=== PATIENT | male | born 1940 | race Caucasian/White ===

== ENCOUNTER 2017-02-21 10:34 | Inpatient (IN) | payer MEDICARE ==
[2017-02-21 13:23] VITALS: BMI 31.0
[2017-02-21] MEDS ORDERED: ASPIRIN 325 MG TAB PO STA (15:14)
[2017-02-21] MEDS ORDERED: ALPRAZolam 0.25 MG TAB PO PRN (15:14)
[2017-02-21] MEDS ORDERED: ATORVASTATIN 80 MG TAB PO STA (15:14)
[2017-02-21] MEDS ORDERED: ALPRAZolam 0.5 MG TAB PO PRN (15:14)
[2017-02-21] MEDS ORDERED: SODIUM CHLORIDE 0.9% 1,000 ML in EMPTY BAG 1 BAG IV ONE (15:14)
[2017-02-21] MEDS ORDERED: NITROGLYCERIN SL TABS 0.4 MG TAB SUBLINGUAL PRN (15:14)
[2017-02-21 15:42] LABS: Basophils # (A) 0.1 k/uL (0-0.2); Basophils % (A) 1 %; CH 31.1; CHCM 33.7; Eosinophils # (A) 0.5 k/uL (0-0.7); Eosinophils % (A) 8 %; HCT 47.4 % (39.0-53.0); HDW 2.68; HGB 16.2 gm/dL (13.0-17.5); Luc # (Auto) 0.09; Luc % (Auto) 1; Lymphocytes # (A) 1.3 k/uL (1.0-4.8); Lymphocytes % (A) 20 %; MCH 31.6 pg (25.0-35.0); MCHC 34.1 g/dL (31.0-37.0); MCV 92.6 fL (80.0-100.0); Mean Platelet Volume 7.5; Monocytes # (A) 0.4 k/uL (0-1.0); Monocytes % (A) 6 %; Neutrophils # (A) 4.1 k/uL (1.3-7.7); Neutrophils % (A) 63 %; RBC 5.12 m/uL (4.30-5.90); RDW 13.4 % (11.5-15.5); WBC 6.5 k/uL (3.8-10.6); WBC (Perox) 6.65
[2017-02-21 15:46] LABS: INR 1.1 (<1.2); Prothrombin Time 11.3 sec (9.0-12.0)
[2017-02-21 15:52] LABS: Anion Gap 8 mmol/L; Blood Urea Nitrogen 15 mg/dL (9-20); Calcium 9.2 mg/dL (8.4-10.2); Carbon Dioxide 25 mmol/L (22-30); Chloride 104 mmol/L (98-107); Glucose 112 mg/dL (74-99); Non-African American GFR(MDRD) >60 (>60 ml/min/1.73 sqM); Potassium 4.2 mmol/L (3.5-5.1); Sodium 137 mmol/L (137-145)
[2017-02-21] MEDS: ISOSORBIDE MONONITRATE ER 15 MG TAB PO SCH (17:55)
[2017-02-21] MEDS: CARVEDILOL 12.5 MG TAB PO SCH (17:55)
[2017-02-21] MEDS ORDERED: TEMAZEPAM 7.5 MG CAP PO PRN (18:31)
[2017-02-21] MEDS: HEPARIN SODIUM,PORCINE 5,000 UNIT/ML 1 ML VIAL SQ SCH (21:04)
[2017-02-22] MEDS: ISOSORBIDE MONONITRATE ER 15 MG TAB PO SCH (06:37)
[2017-02-22] MEDS: CARVEDILOL 12.5 MG TAB PO SCH (06:37)
[2017-02-22] MEDS: CLOPIDOGREL 75 MG TAB PO SCH (06:38)
[2017-02-22] MEDS: PANTOPRAZOLE 40 MG TABLET PO SCH (06:38)
[2017-02-22] MEDS ORDERED: ATORVASTATIN 80 MG TAB PO STA (07:25)
[2017-02-22] MEDS ORDERED: ASPIRIN 325 MG TAB PO STA (07:25)
[2017-02-22] MEDS: ASPIRIN 81 MG PO SCH (07:32)
[2017-02-22] MEDS ORDERED: IV FLUID CONTINUATION 1,000 ML IV ONE (10:31)
[2017-02-22] MEDS: HEPARIN SODIUM,PORCINE 5,000 UNIT/ML 1 ML VIAL SQ SCH ×2 (10:35→20:41)
[2017-02-22] MEDS ORDERED: fentaNYL (PF) 50 MCG/ML 2 ML AMP IV ONE (11:10)
[2017-02-22] MEDS ORDERED: MIDAZOLAM 2 MG/2 ML VIAL IV ONE (11:10)
[2017-02-22] MEDS ORDERED: LIDOCAINE 2% INJ 20 MG/ML SQ ONE (11:13)
[2017-02-22] MEDS ORDERED: IOHEXOL 350 MG/ML 125ML BOTTLE INJ ONE (11:24)
[2017-02-22] MEDS ORDERED: RX INFO: IV CONTRAST WAS GIVEN 1 EACH MISC MISCELLANE PRN (11:36)
[2017-02-22] MEDS ORDERED: SODIUM CHLORIDE 0.9% 1,000 ML IV SCH (11:45)
--- NOTE | 2017-02-22 11:51 | P.PCN ---
Date of Procedure: 02/22/17 Preoperative Diagnosis: Unstable angina, dizziness Postoperative Diagnosis: Normal coronary arteries. Mild cardiomyopathy Procedure(s) Performed: Left heart catheterization with left ventriculography Description of Procedure: HISTORY: This is a 76-year-old gentleman with history of mild coronary artery disease and possibly history of aortic regurgitation who was admitted to [facility] with complaints of dizziness, visual disturbances and also recurrent left arm pain associated with sweating. Patient's cardiac enzymes were negative. Computed tomography scan showed evidence of small lacunar infarct. Because of ongoing chest pain and known ischemic heart disease, patient is advised to have a cardiac catheterization to rule out any progression of ischemic heart disease. Patient is also waiting to have neurology evaluation. Carotid duplex study did not reveal any significant obstructive disease. CONSENT:I have discussed the risks, benefits and alternative therapies for the above-mentioned procedure and for both sedation/analgesia as well as necessary blood product administration, if indicated, as they pertain to this patient. The patient has indicated understanding and acceptance of the risks and procedures discussed. PROCEDURE: Patient was brought to the lab in a fasting state. Patient was given some IV sedation. The right groin is infiltrated with lidocaine and right femoral artery was entered using Seldinger technique. A 6-Guyanese catheter was left in place and selective coronary arteriography and left ventriculography was performed. Patient tolerated the procedure well. Femoral angiogram was performed and Angio-Seal was applied for hemostasis. No immediate complications were noted and patient was transferred to [facility] in a stable condition Conscious Sedation: Versed 0.5 mg Fentanyl : 25 micrograms Duration 20 minutes HEMODYNAMICS: . The aortic pressure is about 88/50 and left ankle end- diastolic pressure is 5-8. There was no gradient across the aortic valve SELECTIVE CORONARY ARTERIOGRAPHY: LEFT MAIN: Long and patent THE LEFT ANTERIOR DESCENDING CORONARY ARTERY: Moderate caliber vessel free of any occlusive disease THE LEFT CIRCUMFLEX AND IS CORONARY ARTERY: . Moderate caliber vessel giving rise to good-sized OM branch. Free of occlusive disease THE RIGHT CORONARY ARTERY: Dominant vessel giving rise good-sized PDA and PLV. Free of any occlusive disease LEFT VENTRICULOGRAPHY: . Mildly dilated left ventricle with mildly impaired LV function with an ejection fraction about 40 to 45% FINAL IMPRESSION: Normal coronary arteries. Mildly impaired LV function PLAN: Maximum medical therapy. Further evaluation for echocardiogram with contrast. May consider LAURIE examination. If necessary. If the workup is negative, long-term monitoring to rule out any intermittent atrial fibrillation to be considered PROGNOSIS: . Fair
[2017-02-22] MEDS ORDERED: ACETAMINOPHEN TAB 325 MG TAB PO PRN (15:04)
--- NOTE | 2017-02-22 15:27 | ECHOF ---
Referral Reason:chest pain MEASUREMENTS -------- HEIGHT: 157.5 cm WEIGHT: 100.7 kg BP: 102/61 IVSd: 1.3 cm (0.6 - 1.1) LVIDd: 5.2 cm (3.9 - 5.3) LVPWd: 1.0 cm (0.6 - 1.1) IVSs: 1.6 cm LVIDs: 4.6 cm LVPWs: 1.3 cm Ao Diam: 3.5 cm (2.0 - 3.7) AV Cusp: 1.9 cm (1.5 - 2.6) LA Diam: 3.4 cm (2.7 - 3.8) MV EXCURSION: 13.644 mm (> 18.000) MV EF SLOPE: 45 mm/s (70 - 150) EPSS: 1.5 cm MV E Miguleito: 0.35 m/s MV DecT: 367 ms MV A Miguelito: 0.56 m/s MV E/A Ratio: 0.61 AR PHT: 690 ms RAP: 5.00 mmHg RVSP: 20.99 mmHg FINDINGS -------- Sinus rhythm. This was a technically adequate study. There is mild concentric left ventricular hypertrophy. Overall left ventricular systolic function is mild-moderately impaired with, an EF between 40 - 45 %. Inferior Hypokinesis The right ventricle is normal in size. The left atrial size is normal. The right atrial size is normal. Lumason was given for the enhancement of images. The aortic valve was not well visualized. There is moderate aortic regurgitation. Mild mitral regurgitation is present. Mild tricuspid regurgitation present. There is no evidence of pulmonary hypertension. The right ventricular systolic pressure, as measured by Doppler, is 20.99mmHg. There is no pulmonic regurgitation present. The aortic root size is normal. There is no pericardial effusion. CONCLUSIONS -------- 1. There is mild concentric left ventricular hypertrophy. 2. The right ventricular systolic pressure, as measured by Doppler, is 20.99mmHg. 3. There is no pulmonic regurgitation present. 4. The aortic root size is normal. 5. There is no pericardial effusion. 6. Overall left ventricular systolic function is mild-moderately impaired with, an EF between 40 - 45 %. 7. Inferior Hypokinesis 8. Lumason was given for the enhancement of images. 9. The aortic valve was not well visualized. 10. There is moderate aortic regurgitation. 11. Mild mitral regurgitation is present. 12. Mild tricuspid regurgitation present. 13. There is no evidence of pulmonary hypertension. C[employer]AL [employer]PPLY MANAGER: Jordyn Arguelles RDCS
--- NOTE | 2017-02-22 19:46 | P.CNNES ---
History of Present Illness Consult date: 02/22/17 Reason for Consult: Patient being evaluated after cardiac cath for numbness. History of Present Illness: This patient is a 76-year-old right-handed white male who was admitted to [facility] on 02/19/2017 with symptoms of left arm tingling and numbness. Patient describes his symptoms at that time is being mostly a sense of achiness and numbness involving his left arm. He was admitted to the hospital and did undergo a computed tomography scan of the brain on 02/19/2017. This CAT scan revealed evidence of cerebral atrophy with no acute intracranial abnormality. A small lacunar infarct in the insula of the left temporal lobe was noted. This was felt to be an old area of infarction. Patient denies any previous history of stroke. Apparently he also had a near syncopal episode when he was admitted to [facility]. He has no previous history of stroke or seizures. He did complain of some chest discomfort and uncontrolled hypertension and was seen by cardiology at [facility]. He does follow with his regular family physician in [facility] practice with Dr. Mitchell Jessica. He does take one baby aspirin 81 mg daily for the past several years. He states that his last laboratory checkup with his family physician revealed normal cholesterol levels. The patient was transferred to [facility] today for a cardiac catheterization given his chest pain and atypical chest pain symptoms. He underwent a cardiac catheterization today by Dr. Joseph. Final impression on the cardiac catheterization was normal coronary arteries with mild impairment of left ventricular function. Neurology was consulted today for further evaluation. He is resting comfortably in bed and denies any new symptoms. His numbness in the left arm has completely resolved. He did undergo a carotid Doppler ultrasound which failed to reveal any significant carotid artery stenosis. Neurologically his exam today is nonfocal. We have recommended the patient should be maintained on his current dose of aspirin daily for secondary stroke prevention. We've recommended repeat serum cholesterol to be done in 6 months for him. He has had no further recurrence of left arm discomfort or achiness in the left arm at this time. He denies any neck pain or history of neck injury in the past. He is being considered for possible discharge home tomorrow. Neurology is now been consulted for further evaluation and recommendations. Review of Systems Constitutional: Denies chills, Denies fever Eyes: denies blurred vision, denies pain Ears, nose, mouth and throat: Denies headache, Denies sore throat Cardiovascular: Denies chest pain, Denies shortness of breath Respiratory: Denies cough Gastrointestinal: Denies abdominal pain, Denies diarrhea, Denies nausea, Denies vomiting Musculoskeletal: Denies myalgias Integumentary: Denies pruritus, Denies rash Neurological: Reports motor disturbance, Reports paresthesias, Reports sensory deficit, Reports syncope, Denies numbness, Denies weakness Psychiatric: Denies anxiety, Denies depression Endocrine: Denies fatigue, Denies weight change Past Medical History Past Medical History: Coronary Artery Disease (CAD), Cancer, Chest Pain / Angina , CVA/TIA, Syncope History of Any Multi-Drug Resistant Organisms: None Reported Past Surgical History: Heart Catheterization, Hernia Repair Past Anesthesia/Blood Transfusion Reactions: No Reported Reaction Past Psychological History: No Psychological Hx Reported Smoking Status: Former smoker Past Alcohol Use History: None Reported Past Drug Use History: None Reported - Past Family History Mother Family Medical History: Congestive Heart Failure (CHF) Father Family Medical History: Cancer Medications and Allergies Home Medications Medication Instructions Recorded Confirmed Type Aspirin 81 mg PO DAILY 02/21/17 02/21/17 History Carvedilol [Coreg] 25 mg PO BID 02/21/17 02/21/17 History Multivitamins, Thera [Multivitamin 1 tab PO DAILY 02/21/17 02/21/17 History (formulary)] Nitroglycerin Sl Tabs [Nitrostat] 0.4 mg SUBLINGUAL Q5M PRN 02/21/17 02/21/17 History Omeprazole [PriLOSEC] 20 mg PO DAILY 02/21/17 02/21/17 History Allergies Allergy/AdvReac Type Severity Reaction Status Date / Time No Known Allergies Allergy Verified 02/21/17 14:58 Physical Examination - Vital Signs Vital Signs: Vital Signs Temp Pulse Pulse Pulse Resp BP BP 02/22/17 13:30 62 18 93/55 02/22/17 13:00 61 16 93/62 02/22/17 12:30 97.1 F L 52 L 18 95/52 02/22/17 12:15 62 18 02/22/17 12:00 02/22/17 11:45 58 L 18 02/22/17 09:19 96.4 F L 68 18 104/60 02/22/17 08:00 96.4 F L 68 18 02/22/17 04:00 97.5 F L 65 18 02/21/17 23:40 97.2 F L 64 18 02/21/17 20:50 96.8 F L 68 16 02/21/17 15:46 89 16 BP BP Pulse Ox 02/22/17 13:30 97 02/22/17 13:00 91 L 02/22/17 12:30 95 02/22/17 12:15 89/56 93 L 02/22/17 12:00 84/53 02/22/17 11:45 85/55 92 L 02/22/17 09:19 93 L 02/22/17 08:00 104/60 93 L 02/22/17 04:00 102/61 91 L 02/21/17 23:40 94/50 92 L 02/21/17 20:50 99/68 92 L 02/21/17 15:46 132/65 93 L Intake and Output 02/21/17 02/22/17 02/22/17 22:59 06:59 14:59 Intake Total 237 400 Output Total 220 Balance 237 180 Intake: IV 400 Sodium Chloride 0.9% 1, 150 000 ml @ 150 mls/hr IV . Q6H40M [facility] Rx#:[id number] Oral 237 Output: Urine 220 Other: Voiding Method Toilet Toilet Urinal Urinal # Voids 1 1 Weight 101 kg 101 kg - Constitutional General appearance: cooperative, disheveled - EENT EENT: PERRL, mucous membranes moist - Respiratory Respiratory: lungs clear, normal breath sounds - Cardiovascular Cardiovascular: regular rate, normal S1, normal S2 Extremities: no peripheral edema bilaterally - Gastrointestinal Gastrointestinal: normoactive bowel sounds - Integumentary Integumentary: normal - Neurologic Cranial nerve examination: PERRL, EOMI, VFF, V1/V2/V3 grossly intact, face symmetric, tongue midline, intact gag reflex, intact corneal reflex, normal palatal elevation Speech examination: intact Sensorimotor examination: intact Detailed motor examination: grossly full strength in all extremities Motor examination - right side: 4/5: biceps, triceps, wrist flexion, wrist extension, sofa inspector, hip flexors, knee extensors, dorsiflexion, toe extension (EHL) , plantarflexion Motor examination - left side: 4/5: biceps, triceps, wrist flexion, wrist extension, sofa inspector, hip flexors, knee extensors, dorsiflexion, toe extension (EHL) , plantarflexion Detailed sensory examination: intact Reflex and gait examination: intact Reflexes: 1+: ankle, bicep, knee, tricep - Musculoskeletal Musculoskeletal: no pain - Psychiatric Psychiatric: mood/affect appropriate, cooperative Results - Laboratory Findings CBC and BMP: 02/21/17 15:33 02/21/17 15:33 Abnormal Lab Findings: Abnormal Labs 02/21/17 15:33 Glucose 112 H Assessment and Plan (1) TIA (transient ischemic attack) Status: Acute Code(s): G45.9 - TRANSIENT CEREBRAL ISCHEMIC ATTACK, UNSPECIFIED (2) Old lacunar stroke without late effect Status: Acute Code(s): Z86.73 - PRSNL HX OF TIA (TIA), AND CEREB INFRC W/O RESID DEFICITS (3) Unstable angina Status: Acute Code(s): I20.0 - UNSTABLE ANGINA Plan: This patient is a 76-year-old male who initially presented to [facility] with symptoms of near syncope and left arm pain and numbness. He was admitted to the hospital and underwent a computed tomography scan of the brain and carotid Doppler study both of which were negative. CAT scan of the brain didn't reveal evidence of a old small lacunar infarct in the insula of the left temporal lobe. Patient was transferred today to the [facility] for cardiac catheterization procedure. This procedure was completed today and was entirely normal. Patient's neurological examination at this time is nonfocal. We recommend that he should be maintained on one baby aspirin daily for secondary stroke prevention. No further studies are needed at this time. His clinical history suggests possibility of mild TIA. His left arm symptoms have completely resolved. We will continue to follow his neurological status closely during this admission. His overall prognosis at this time remains guarded. Time with Patient: Greater than 30
[2017-02-22 21:21] LABS: Anion Gap 7 mmol/L; Blood Urea Nitrogen 18 mg/dL (9-20); Calcium 8.7 mg/dL (8.4-10.2); Carbon Dioxide 23 mmol/L (22-30); Chloride 105 mmol/L (98-107); Glucose 141 mg/dL (74-99); Magnesium 1.5 mg/dL (1.6-2.3); Non-African American GFR(MDRD) >60 (>60 ml/min/1.73 sqM); Potassium 4.3 mmol/L (3.5-5.1); Sodium 135 mmol/L (137-145)
[2017-02-22] MEDS ORDERED: Magnesium Replacement Protocol 1 EACH MISC MISCELLANE PRN (22:05)
[2017-02-22] MEDS: MAGNESIUM SULFATE-D5W PMX 1 GM in DEXTROSE/WATER 1 100ML.BAG IVPB SCH (23:08)
[2017-02-23] MEDS: MAGNESIUM SULFATE-D5W PMX 1 GM in DEXTROSE/WATER 1 100ML.BAG IVPB SCH (00:21)
[2017-02-23] MEDS: PANTOPRAZOLE 40 MG TABLET PO SCH (06:41)
[2017-02-23] MEDS: HEPARIN SODIUM,PORCINE 5,000 UNIT/ML 1 ML VIAL SQ SCH (08:04)
[2017-02-23] MEDS: CLOPIDOGREL 75 MG TAB PO SCH (08:04)
[2017-02-23] MEDS: ASPIRIN 81 MG PO SCH (08:04)
[2017-02-23 08:07] VITALS: RESP 16; TEMP 96.7
[2017-02-23 11:56] VITALS: BP 116/59; PULSE 64
[2017-02-23] MEDS ORDERED: CARVEDILOL 3.125 MG TAB PO SCH (12:00)
--- NOTE | 2017-02-23 14:18 | P.PN ---
Subjective Principal diagnosis: Chest discomfort and dizziness This is a 76-year-old gentleman with history of mild coronary artery disease as well as aortic regurgitation with initially presented to [facility] with symptoms of dizziness and syncope, with associated left arm discomfort. Cardiac enzymes and troponins were negative 3. Patient was transferred here where he underwent a cardiac catheterization yesterday by Dr. Joseph. Cardiac catheterization revealed normal coronary arteries with mildly impaired left ventricular systolic function. Echocardiogram with Doppler study was performed which revealed an ejection fraction of 40-45%. Patient was also noted on a CAT scan [facility] to have a lacunar infarct. Patient was seen in consultation by neurology who felt that this was old. Patient was advised to continue on a baby aspirin along with Plavix. We did initiate a small dose of Coreg along with LEIGH inhibitor today. Objective - Vital Signs Vital signs: Vital Signs Temp 96.7 F L 02/23/17 08:00 Pulse 64 02/23/17 11:55 Resp 16 02/23/17 11:55 BP 116/59 02/23/17 11:55 Pulse Ox 93 L 02/23/17 11:55 Intake & Output 02/22/17 02/23/17 02/23/17 18:59 06:59 18:59 Intake Total 636 900 200 Output Total 220 950 Balance 416 -50 200 Weight 102.3 kg Intake: IV 400 900 Sodium Chloride 0.9% 1, 150 900 000 ml @ 150 mls/hr IV . Q6H40M [facility] Rx#:[id number] Oral 236 200 Output: Urine 220 950 Other: Voiding Method Toilet Toilet # Voids 1 2 2 - Exam PHYSICAL EXAMINATION: HEENT: Head is atraumatic, normocephalic. Pupils equal, round. Neck is supple. There is no elevated jugular venous pressure. HEART EXAMINATION: Heart S1-S2 diastolic murmur is heard. CHEST EXAMINATION: Lungs are clear to auscultation and precussion. No chest wall tenderness is noted on palpation or with deep breathing. ABDOMEN: Soft, nontender. Bowel sounds are heard. No organomegaly noted. Right groin soft, no evidence of any hematoma. EXTREMITIES: 2+ peripheral pulses with no evidence of peripheral edema and no calf tenderness noted. NEUROLOGIC patient is awake, alert and oriented -3. . - Labs CBC & Chem 7: 02/21/17 15:33 02/22/17 20:52 Labs: Abnormal Lab Results - Last 24 Hours (Table) 02/22/17 Range/Units 20:52 Sodium 135 L (137-145) mmol/L Glucose 141 H (74-99) mg/dL Magnesium 1.5 L (1.6-2.3) mg/dL Assessment and Plan (1) Chest pain Status: Acute (2) Dizziness Status: Acute (3) NICM (nonischemic cardiomyopathy) Status: Acute (4) S/P cardiac cath Status: Acute (5) Old lacunar stroke without late effect Status: Acute Plan: Cardiology's perspective, patient may be able to be discharged home today. We will start him on a low-dose of Coreg along with LEIGH inhibitor. A follow-up appointment will be made in the office post discharge. We will continue aspirin and Plavix. DNP note has been reviewed, I agree with a documented findings and plan of care. Patient was seen and examined.
--- NOTE | 2017-02-23 21:48 | P.PN ---
Subjective This patient is a 76-year-old male who was seen in neurology consultation yesterday for evaluation of dizziness and evidence of old lacunar infarct on CAT scan of the brain. Patient presented initially to [facility] with symptoms of dizziness and left arm numbness and weakness. He was seen by cardiology and transferred to [facility] and underwent a cardiac catheterization yesterday by Dr. Joseph. The results of the cardiac catheterization revealed normal coronary arteries and mild impaired left ventricular systolic function. Echocardiogram and Doppler study was performed and revealed an ejection fraction of 40-45%. We did review the CAT scan report from the outside hospital which revealed a small lacunar infarct. Was felt to be old in nature and definitely not acute. He was advised to continue on aspirin and Plavix for secondary stroke prevention. Neurologically he has remained very stable. He is being considered for discharge home later today. He may follow-up in the outpatient neurology clinic in 3-4 weeks. Objective - Vital Signs Vital signs: Vital Signs Temp 96.7 F L 02/23/17 08:00 Pulse 64 02/23/17 11:55 Resp 16 02/23/17 11:55 BP 116/59 02/23/17 11:55 Pulse Ox 93 L 02/23/17 11:55 Intake & Output 02/23/17 02/23/17 02/24/17 06:59 18:59 06:59 Intake Total 900 200 Output Total 950 Balance -50 200 Weight 102.3 kg Intake: IV 900 Sodium Chloride 0.9% 1, 900 000 ml @ 150 mls/hr IV . Q6H40M [facility] Rx#:[id number] Oral 200 Output: Urine 950 Other: Voiding Method Toilet Toilet # Voids 2 2 - Exam Physical examination: PHYSICAL EXAMINATION: Patient is resting comfortably in bed. VITAL SIGNS: Blood pressure is [116/59]. Heart rate is [64]. Respiration is [16] . Temperature is [96.7]. HEENT: Head is atraumatic, neck is supple, there were no carotid bruits. CHEST: Lungs are clear to auscultation and percussion. CARDIAC: S1, S2 normal rate and rhythm. There is no murmur. ABDOMEN: Soft and nontender. Bowel sounds are present. EXTREMITIES: There is no pedal edema. Peripheral pulses are present. Neurological examination: Patient has a nonfocal neurological examination. There is no focal weakness detected on examination. - Labs CBC & Chem 7: 02/21/17 15:33 02/22/17 20:52 Assessment and Plan (1) TIA (transient ischemic attack) Status: Acute Code(s): G45.9 - TRANSIENT CEREBRAL ISCHEMIC ATTACK, UNSPECIFIED (2) Old lacunar stroke without late effect Status: Acute Code(s): Z86.73 - PRSNL HX OF TIA (TIA), AND CEREB INFRC W/O RESID DEFICITS (3) Unstable angina Status: Acute Code(s): I20.0 - UNSTABLE ANGINA Plan: This patient is a 76-year-old male who initially presented to [facility] with symptoms of near syncope and left arm pain and numbness. He was admitted to the hospital and underwent a computed tomography scan of the brain and carotid Doppler study both of which were negative. CAT scan of the brain didn't reveal evidence of a old small lacunar infarct in the insula of the left temporal lobe. Patient was transferred today to the [facility] for cardiac catheterization procedure. This procedure was completed today and was entirely normal. Patient's neurological examination at this time is nonfocal. We recommend that he should be maintained on one baby aspirin daily for secondary stroke prevention. No further studies are needed at this time. His clinical history suggests possibility of mild TIA. His left arm symptoms have completely resolved. Patient underwent cardiac catheterization yesterday I Dr. Joseph. Cardiac catheterization reveals normal coronary arteries with mild impaired left ventricular systolic function. Neurologically the patient remains very stable. We reviewed his CAT scan of the brain results once again with the patient. He should be maintained on current medications which include Plavix and aspirin for secondary stroke prevention. He may follow -up in the outpatient neurology clinic in 3-4 weeks. We will continue to follow his neurological status closely during this admission. His overall prognosis at this time remains guarded.
[2017-02-24] MEDS ORDERED: LISINOPRIL 2.5 MG TAB PO SCH (09:00)
== END 2017-02-23 13:52 | disposition home or self-care (01) | DRG 287 ==
LOC: 6SEL 13:03
PROVIDERS: ADMIT Internal Medicine Cardiovascular Disease; ATTEND Internal Medicine Cardiovascular Disease
PROC: B2111ZZ Fluoroscopy of Multiple Coronary Arteries using Low Osmolar Contrast (ICD-10-PCS; 2017-02-22)
PROC: B2151ZZ Fluoroscopy of Left Heart using Low Osmolar Contrast (ICD-10-PCS; 2017-02-22)
PROC: 4A023N7 Measurement of Cardiac Sampling and Pressure, Left Heart, Percutaneous Approach (ICD-10-PCS; principal; 2017-02-22 10:31)
DX: I42.8 Other cardiomyopathies (principal); I35.1 Nonrheumatic aortic (valve) insufficiency; G45.9 Transient cerebral ischemic attack, unspecified; I10 Essential (primary) hypertension; Z79.82 Long term (current) use of aspirin; Z79.899 Other long term (current) drug therapy; Z82.49 Family history of ischemic heart disease and other diseases of the circulatory system; Z86.73 Personal history of transient ischemic attack (TIA), and cerebral infarction without residual deficits; Z87.891 Personal history of nicotine dependence; R55 Syncope and collapse
CPT/HCPCS: 80048; 83735; 85025; 85610; 93306; 93458

== ENCOUNTER → 2018-06-21 | Outpatient (CLI) | payer MEDICARE ==
--- NOTE | 2018-06-21 16:20 | XR ---
EXAMINATION TYPE: XR chest 2V DATE OF EXAM: 06/21/2018 COMPARISON: NONE HISTORY: Shortness of breath TECHNIQUE: Frontal and lateral views of the chest are obtained. FINDINGS: There is no focal air space opacity, pleural effusion, or pneumothorax seen. There is steph ateral flattening the diaphragms on the lateral view and pulmonary hyperinflation compatible with und erlying COPD. Minimal interstitial pulmonary edema is noted. Cardiomediastinal silhouette is upper li mits of normal. The osseous structures are intact. Mild multilevel degenerative changes of the thorac ic spine are noted. IMPRESSION: 1. Minimal interstitial edema may be on a cardiogenic or noncardiogenic basis. 2. Radiographic sequela of COPD.
[2018-06-21 16:37] LABS: Basophils # (A) 0.1 k/uL (0-0.2); Basophils % (A) 1 %; Eosinophils # (A) 0.6 k/uL (0-0.7); Eosinophils % (A) 8 %; HCT 49.8 % (39.0-53.0); HGB 16.2 gm/dL (13.0-17.5); Lymphocytes # (A) 1.7 k/uL (1.0-4.8); Lymphocytes % (A) 20 %; MCH 30.1 pg (25.0-35.0); MCHC 32.6 g/dL (31.0-37.0); MCV 92.3 fL (80.0-100.0); Mean Platelet Volume 6.7; Monocytes # (A) 0.4 k/uL (0-1.0); Monocytes % (A) 5 %; Neutrophils # (A) 5.4 k/uL (1.3-7.7); Neutrophils % (A) 65 %; Platelet Count 171 k/uL (150-450); RDW 13.5 % (11.5-15.5); WBC 8.4 k/uL (3.8-10.6)
[2018-06-22 04:49] LABS: Albumin 4.1 g/dL (3.80-4.90); Albumin/Globulin Ratio 1.86 (1.20-2.10); Anion Gap 8.9 mmol/L (4.00-12.00); Carbon Dioxide 30.1 mmol/L (21.6-31.8); Globulin 2.2 g/dL (1.6-3.3); Potassium 4.2 mmol/L (3.5-5.5); Total Bilirubin 0.7 mg/dL (0.2-1.2); Total Protein 6.3 g/dL (6.2-8.2)
== END ==
LOC: LABWHC1 15:34
PROVIDERS: ATTEND Internal Medicine Cardiovascular Disease
DX: J44.9 Chronic obstructive pulmonary disease, unspecified (principal); R06.02 Shortness of breath
CPT/HCPCS: 36415; 71046; 80053; 83880; 85025

== ENCOUNTER → 2024-05-01 | Day surgery (SDC) | payer MEDICARE ==
[~2024-05-01] MED LIST: SODIUM CHLORIDE 0.9% 1,000 ML IV SCH; SODIUM CHLORIDE 0.9% 500 ML IV SCH
[2024-05-01] MEDS: IV FLUID CONTINUATION 1,000 ML IV ONE (12:37)
[2024-05-01 12:50] VITALS: TEMP 98
[2024-05-01] MEDS: SODIUM CHLORIDE 0.9% 1,000 ML IV SCH (12:57)
[2024-05-01] MEDS: LIDOCAINE 1% INJ 10MG/ML (20 ML MDV) SQ ONE (14:03)
--- NOTE | 2024-05-01 14:49 | P.PCN ---
Description of Procedure: Procedure: Insertion of Linq loop recorder Indication: Syncope CONSENT:I have discussed the risks, benefits and alternative therapies for the above-mentioned procedure. The patient has indicated understanding and acceptance of the risks and procedures discussed. PROCEDURE: Patient was brought to the catheterization lab in a fasting state. Patient was prepped and draped in the usual fashion. 1% lidocaine was used to anesthetize the area of the left third intercostal space. Using the loop recorder incision device, a small 0.5 cm incision was made in the left 3rd intercostal space. Next the Linq loop recorder was deployed in the 3rd intercostal space subcutaneously using the insertion tool. Thresholds were checked and were adequate. Next the incision was closed using Dermabond. Steristrips were placed over the incision and the procedure was completed. The patient tolerated the procedure well. The patient was transported to the post cath holding area in stable condition. Linq loop recorder serial number: [id number]
[2024-05-01] MEDS: ACETAMINOPHEN IV (For NPO) 1,000 MG in EMPTY BAG 1 BAG IVPB STA (15:00)
[2024-05-01 17:57] VITALS: BP 111/56; PULSE 58; RESP 18
== END ==
LOC: CATHEP 11:22
PROVIDERS: ATTEND Internal Medicine
DX: R55 Syncope and collapse (principal); I10 Essential (primary) hypertension; I35.1 Nonrheumatic aortic (valve) insufficiency; I42.0 Dilated cardiomyopathy; J44.9 Chronic obstructive pulmonary disease, unspecified; Z86.73 Personal history of transient ischemic attack (TIA), and cerebral infarction without residual deficits; Z87.891 Personal history of nicotine dependence; Z79.02 Long term (current) use of antithrombotics/antiplatelets; Z79.899 Other long term (current) drug therapy
CPT/HCPCS: 33285; J0690; J2003; J0131

== ENCOUNTER 2024-11-13 11:42 | Day surgery (SDC) | payer MEDICARE ==
[~2024-11-13 11:42] MED LIST changes: -SODIUM CHLORIDE 0.9% 1,000 ML IV SCH; -SODIUM CHLORIDE 0.9% 500 ML IV SCH; +ceFAZolin 1 GM in SODIUM CHLORIDE 0.9% IRRIG BTL 250 ML IRRIGATION PRN
[2024-11-13] MEDS: IV FLUID CONTINUATION 1,000 ML IV ONE (12:31)
[2024-11-13] MEDS: SODIUM CHLORIDE 0.9% 1,000 ML IV SCH ×2 (12:31→18:58)
[2024-11-13] MEDS: MIDAZOLAM 2 MG/2 ML VIAL IVP ONE ×3 (14:22→14:57)
[2024-11-13] MEDS: fentaNYL (PF) 50 MCG/1 ML VIAL IVP ONE ×3 (14:23→14:57)
[2024-11-13] MEDS: LIDOCAINE 2% (PF) 20 MG/ML 5 ML VIAL SQ ONE (14:27)
[2024-11-13] MEDS: IOPAMIDOL-370 100ML BTL IVP ONE (14:27)
[2024-11-13] MEDS: ceFAZolin 1,000 MG VIAL IVPB ONE (14:58)
[2024-11-13] MEDS: ceFAZolin 2 GM in SODIUM CHLORIDE 0.9% 500 ML 500 ML IRRIGATION ONE (14:59)
[2024-11-13] MEDS: HEPARIN SODIUM,PORCINE (1 ML) 2,500 UNIT in SODIUM CHLORIDE 0.9% 250 ML IRRIGATION ONE (14:59)
--- NOTE | 2024-11-13 15:49 | P.PCN ---
Description of Procedure: CARDIOLOGY PROCEDURE NOTE Stripper [place]paquer: Dr. Bari Henson Procedure performed: Insertion dual chamber permanent pacemaker Site: Left subclavian Indications: Sick Sinus Syndrome, symptomatic bradycardia with need for beta td for VT and cardiomyopathy Complications: None Blood Loss: Minimal Description of Procedure: After the risks, benefits, and alternatives of the above-mentioned procedure was explained in detail with the patient, informed consent was obtained. The patient was taken to the cardiac catheterization suite where the left subclavian area was sterily prepped and draped in the usual fashion. One percent lidocaine was used to anesthetize the left subclavian area. Twenty milliliters of Isoview 370 contrast was injected into the left antecubital vein to allow for direct visualization of the left subclavian vein under fluoroscopy. A 1.5 inch incision was made utilizing a #15 blade in the left subclavian site. Hemostasis was made complete. Electrocautery along with digital blunt dissection was utilized to dissect to the level of the pectoralis muscle fascia and create a pocket large enough to accommodate the generator. A thin walled micro puncuture needle was used to cannulate the left subclavian vein. A guide-wire was inserted through the needle into the vascular lumen under fluoroscopic guidance. The needle was removed. Another thin walled micr puncture needle was used to again cannulate the left subclavian vein. A guide-wire was inserted through the needle into the vascular lumen under fluoroscopic guidance. The needle was removed and both guide-wires were attached to the field. A venous sheath and dilator were advanced over the guidewire into the vascular lumen under fluoroscopic guidance. The dilator and guidewire were then removed. A right ventricular bipolar lead was inserted into the sheath and advanced under fluoroscopic guidance into the right ventricle under fluoroscopic guidance. Adequate sensing and pacing thresholds were achieved and the lead was screwed into place in the RV apex. The sheath was then torn away. The lead collar was advanced and anchored into place utilizing #0 silk suture. Next, another venous sheath and dilator were advanced under fluoroscopic guidance into the vascular lumen over the guidewire. After removal of the dilator and guidewire, a right atrial bipolar lead was inserted into this sheath and advanced under fluoroscopic guidance into the right atrium. The lead was positioned into the right atrial appendage. Adequate sensing and pacing thresholds were then achieved and the lead was screwed into place. The sheath was then torn away. The lead collar was advanced and anchored into place utilizing #0 silk suture. The leads were then inserted into the appropriate position into the generator. They were then secured with the setscrew provided. The leads and generator were inserted into the pocket with the leads posterior. The subcutaneous tissue was approximated utilizing #2.0 and 3.0 vicryl in an interrupted stitch fashion. The dermal layer was approximated utilizing #4.0 vicryl. The area was cleansed with sterile saline and dried. A sterile 4x4 dressing was applied and the patient was transferred to the post catheterization holding area in stable and satisfactory condition. The patient tolerated the procedure well. Generator Data Wire Splicer: Birchbox Brand: [id number] Shirley XT DR MRI Model #: [id number] Serial#: [id number] Right Atrial Bipolar Lead Data: Type: Active fixation lead Wire Splicer: Birchbox Model#: 5076-52 Serial Number: [id number] Right Ventricular Bipolar Lead Data: Type: Active fixation lead Wire Splicer: Medtronic Model #: [id number] Serial #: [id number] Stimulation Thresholds: Right atrial bipolar lead pacing and sensing thresholds Voltage: 0.5 Impedance: 665 ohms P-wave sensin.25 mV Right Ventricular bipolar lead pacing and sensing thresholds Pulse Width: 0.4ms Voltage: 0.5 volts Impedance: 779 ohms R-wave sensin.8 mV Parameter Setting: Pacing mode is AAIR<=>DDDR Lower rate 60 bpm Upper rate 130 bpm Impressions: 1. Successful implantation of a dual chamber permanent pacemaker in the left pectoral site. Plan: 1. Routine post procedure care will be instituted as well as outpatient follow- up surveillance.
[2024-11-13] MEDS ORDERED: ALBUTEROL NEBULIZED 2.5 MG/3 ML INHALATION PRN (15:50)
[2024-11-13 17:10] LABS: INR 1.1 (<1.2); Prothrombin Time 12.2 sec (10.0-12.5)
--- NOTE | 2024-11-13 18:21 | XR ---
EXAMINATION TYPE: XR chest 1V portable DATE OF EXAM: 11/13/2024 5:31 PM COMPARISON: None. CLINICAL INDICATION: Male, 84 years old with history of Lead placement check, TECHNIQUE: XR chest 1V portable view(s) obtained. FINDINGS: The heart size is mildly prominent. The pulmonary vasculature is prominent. Diffuse increased lung markings are present. Correlate for congestive heart failure. Electronic devic e overlies the left chest. Pacemaker overlies left chest. IMPRESSION: 1. Cardiomegaly with diffuse increased lung markings. Correlate for congestive heart failure [facility], , 11/13/2024 6:19 PM
[2024-11-13] MEDS: ceFAZolin 2 GM in DEXTROSE 5% IN WATER 50 ML IVPB SCH (18:27)
[2024-11-13] MEDS: ACETAMINOPHEN TAB 325 MG TAB PO PRN (18:27)
[2024-11-13] MEDS: SYMBICORT 160-4.5 MCG INHALER INHALATION SCH (19:48)
[2024-11-13] MEDS: TIOTROPIUM 2.5 MCG INHALER INHALATION SCH (19:48)
[2024-11-13] MEDS: ATORVASTATIN 20 MG TAB PO SCH (21:17)
[2024-11-13] MEDS: SERTRALINE 100 MG TAB PO SCH (21:17)
[2024-11-14 03:16] VITALS: RESP 18
[2024-11-14 08:47] VITALS: BP 125/61; PULSE 77; TEMP 97.7
[2024-11-14] MEDS: CLOPIDOGREL 75 MG TAB PO SCH (09:36)
[2024-11-14] MEDS: ASPIRIN 81 MG PO SCH (09:36)
--- NOTE | 2024-11-15 16:39 | P.DS ---
Providers Attending physician: Bari Henson DO Primary care physician: [facility] Hospital Course: Patient is a pleasant 84-year-old male with a history of mild cardiomyopathy, nonsustained ventricular tachycardia and symptomatic bradycardia who presented for elective permanent pacemaker. Patient had dual-chamber permanent pacemaker placed on 11/13/2024 from a left subclavian site. Patient did well and no events overnight except for brief runs of nonsustained ventricular tachycardia. Pacemaker interrogation 11/14/2024 showed adequate sensing and pacing parameters and patient was stable for discharge home. Plan - Discharge Summary Discharge Rx Participant: No New Discharge Prescriptions: No Action Nitroglycerin Sl Tabs [Nitrostat] 0.4 mg SUBLINGUAL Q5M PRN PRN Reason: Chest Pain Aspirin 81 mg PO DAILY Clopidogrel [Plavix] 75 mg PO DAILY #30 tab Sertraline [Zoloft] 100 mg PO HS rOPINIRole HCL [Requip] 0.5 mg PO HS Acetaminophen Tab [Tylenol Tab] 500 mg PO DIRECTED PRN PRN Reason: Pain Albuterol Inhaler [Ventolin Hfa Inhaler] 1 - 2 puff INHALATION Q6H PRN PRN Reason: sob Atorvastatin [Lipitor] 20 mg PO HS Fluticasone/Umeclidin/Vilanter [Trelegy Ellipta 200-62.5-25] 1 puff INHALATION BID Ibuprofen [Advil] 200 mg PO DIRECTED PRN PRN Reason: Pain Discharge Medication List Aspirin 81 mg PO DAILY 02/21/17 [History] Nitroglycerin Sl Tabs [Nitrostat] 0.4 mg SUBLINGUAL Q5M PRN 02/21/17 [History] Clopidogrel [Plavix] 75 mg PO DAILY #30 tab 02/23/17 [Rx] Atorvastatin [Lipitor] 20 mg PO HS 04/28/24 [History] Fluticasone/Umeclidin/Vilanter [Trelegy Ellipta 200-62.5-25] 1 puff INHALATION BID 04/28/24 [History] Sertraline [Zoloft] 100 mg PO HS 04/28/24 [History] rOPINIRole HCL [Requip] 0.5 mg PO HS 04/28/24 [History] Acetaminophen Tab [Tylenol Tab] 500 mg PO DIRECTED PRN 11/10/24 [History] Albuterol Inhaler [Ventolin Hfa Inhaler] 1 - 2 puff INHALATION Q6H PRN 11/10/24 [History] Ibuprofen [Advil] 200 mg PO DIRECTED PRN 11/10/24 [History] Follow up Appointment(s)/Referral(s): Bari Henson DO [STAFF PHYSICIAN] - 11/20/24 11:00 am (FOLLOW UP APPOINTMENT WITH THE [facility] IS MADE. ) Patient Instructions/Handouts: Pacemaker (DC), Pacemaker (GEN) Discharge Disposition: HOME SELF-CARE
== END 2024-11-14 12:32 | disposition home or self-care (01) ==
LOC: CATHEP 11:42 → 6NMEDSUR 15:53 → CATHEP 11-14 12:32
PROVIDERS: ATTEND Internal Medicine
DX: I49.5 Sick sinus syndrome (principal); I42.8 Other cardiomyopathies; I35.1 Nonrheumatic aortic (valve) insufficiency; I10 Essential (primary) hypertension; I47.20 Ventricular tachycardia, unspecified; J44.9 Chronic obstructive pulmonary disease, unspecified; Z79.02 Long term (current) use of antithrombotics/antiplatelets; Z79.82 Long term (current) use of aspirin; Z79.899 Other long term (current) drug therapy; Z87.891 Personal history of nicotine dependence
CPT/HCPCS: 94640 ×3; 33208; 85610; 71045; C1892; C1898; C1769; C1785; J2250; J1644; J0690 ×2; Q9967; J2003; J3010

== ENCOUNTER 2024-11-26 00:50 | Inpatient (IN) | payer MEDICARE ==
--- NOTE | 2024-11-26 00:55 | ED ---
SOB HPI - General Stated Complaint: SOB Time Seen by Provider: 11/26/24 00:53 Source: RN notes reviewed, old records reviewed Mode of arrival: EMS Limitations: no limitations - History of Present Illness Initial Comments: This is a 84-year-old male to the ER for evaluation of shortness of breath and chest pain is symptoms occurred prior to arrival. Patient just had recent inpa tient hospitalization but without fever today. Patient in transport to the ER began to have severe back pain left lower extremity pain and some pain in the left leg. Patient has recent pacemaker placement. Patient is having pain with a deep breath and shortness of breath improving on arrival to the ER MD Complaint: shortness of breath, cough -: hour(s) Radiation: back Severity: severe Severity scale (1-10): 9 Quality: dull Consistency: constant Improves With: nothing Worsens With: nothing Known History Of: COPD Context: recent URI Associated Symptoms: denies other symptoms Treatments Prior to Arrival: none - Related Data Home Medications Medication Instructions Recorded Confirmed Aspirin 81 mg PO DAILY 02/21/17 11/26/24 Nitroglycerin Sl Tabs [Nitrostat] 0.4 mg SUBLINGUAL Q5M PRN 02/21/17 11/26/24 Atorvastatin [Lipitor] 20 mg PO HS 04/28/24 11/26/24 Fluticasone/Umeclidin/Vilanter 1 puff INHALATION RT-DAILY 04/28/24 11/26/24 [Trelegy Ellipta 200-62.5-25] Sertraline [Zoloft] 50 mg PO HS 04/28/24 11/26/24 rOPINIRole HCL [Requip] 1 mg PO HS 04/28/24 11/26/24 Acetaminophen Tab [Tylenol Tab] 500 mg PO Q6H PRN 11/10/24 11/26/24 Albuterol Inhaler [Ventolin Hfa 2 puff INHALATION RT-Q4H PRN 11/10/24 11/26/24 Inhaler] Ibuprofen [Advil] 200 mg PO Q6H PRN 11/10/24 11/26/24 Previous Rx's Medication Instructions Recorded Clopidogrel [Plavix] 75 mg PO DAILY #30 tab 02/23/17 Allergies Allergy/AdvReac Type Severity Reaction Status Date / Time tape AdvReac blisters Uncoded 11/10/24 11:20 Review of Systems ROS Statement: Those systems with pertinent positive or pertinent negative responses have been documented in the HPI. ROS Other: All systems not noted in ROS Statement are negative. Past Medical History Past Medical History: Coronary Artery Disease (CAD), Cancer, Chest Pain / Angina, COPD, CVA/TIA, Hyperlipidemia, Osteoarthritis (OA), Sleep Apnea/CPAP/BIPAP, Syncope Additional Past Medical History / Comment(s): bladder cancer no chemo or radiation. TIA- old per testing- no residuals. recent URI infection getting better used 02 concentrator a little more. watching aorta per . BP runs low. cannot tolerate CPAP. 02 concentrator at night 2liters and as needed. History of Any Multi-Drug Resistant Organisms: None Reported Past Surgical History: Heart Catheterization, Hernia Repair Additional Past Surgical History / Comment(s): abdominal wall hernia. loop recorder, steph inguinal hernia. Past Anesthesia/Blood Transfusion Reactions: No Reported Reaction Additional Past Anesthesia/Blood Transfusion Reaction / Comment(s): BP drops Smoking Status: Former smoker, Heavy tobacco smoker - Past Family History Mother Family Medical History: Congestive Heart Failure (CHF) Father Family Medical History: Cancer General Exam General appearance: alert, in no apparent distress Head exam: Present: atraumatic, normocephalic, normal inspection Eye exam: Present: normal appearance, PERRL, EOMI. Absent: scleral icterus, conjunctival injection, periorbital swelling ENT exam: Present: normal exam, mucous membranes moist Neck exam: Present: normal inspection. Absent: tenderness, meningismus, lymphadenopathy Respiratory exam: Present: normal lung sounds bilaterally. Absent: respiratory distress, wheezes, rales, rhonchi, stridor Cardiovascular Exam: Present: regular rate, normal rhythm, normal heart sounds. Absent: systolic murmur, diastolic murmur, rubs, gallop, clicks GI/Abdominal exam: Present: soft, normal bowel sounds. Absent: distended, tenderness, guarding, rebound, rigid Extremities exam: Present: normal inspection, full ROM, normal capillary refill. Absent: tenderness, pedal edema, joint swelling, calf tenderness Back exam: Present: normal inspection Neurological exam: Present: alert, oriented X3, CN II-XII intact Psychiatric exam: Present: normal affect, normal mood Skin exam: Present: warm, dry, intact, normal color. Absent: rash Course Vital Signs 11/26/24 11/26/24 11/26/24 00:52 01:07 01:10 Temperature 98.6 F Pulse Rate 84 75 Pulse Rate [ 73 Left Sitting Radial] Respiratory 18 Rate Blood Pressure 101/67 O2 Sat by Pulse 94 L Oximetry 11/26/24 11/26/24 11/26/24 01:20 04:23 04:47 Temperature Pulse Rate 78 70 78 Pulse Rate [ Left Sitting Radial] Respiratory 16 Rate Blood Pressure 98/64 O2 Sat by Pulse 96 Oximetry 11/26/24 11/26/24 11/26/24 05:01 07:29 07:53 Temperature Pulse Rate 80 80 75 Pulse Rate [ Left Sitting Radial] Respiratory 18 18 Rate Blood Pressure 103/59 109/66 O2 Sat by Pulse 97 98 Oximetry 11/26/24 11/26/24 11/26/24 08:00 08:21 08:30 Temperature Pulse Rate 81 80 84 Pulse Rate [ Left Sitting Radial] Respiratory 18 Rate Blood Pressure 98/58 O2 Sat by Pulse 97 Oximetry 11/26/24 11/26/24 11/26/24 09:00 10:00 11:44 Temperature Pulse Rate 93 93 84 Pulse Rate [ Left Sitting Radial] Respiratory 18 18 Rate Blood Pressure 100/63 105/60 O2 Sat by Pulse 97 98 Oximetry 11/26/24 11/26/24 11/26/24 11:45 11:53 13:00 Temperature Pulse Rate 90 84 87 Pulse Rate [ Left Sitting Radial] Respiratory 18 22 Rate Blood Pressure 101/62 105/58 O2 Sat by Pulse 96 94 L Oximetry 11/26/24 11/26/24 11/26/24 14:00 14:59 15:00 Temperature Pulse Rate 89 88 87 Pulse Rate [ Left Sitting Radial] Respiratory 22 22 Rate Blood Pressure 99/63 68/39 O2 Sat by Pulse 94 L 93 L Oximetry 11/26/24 11/26/24 11/26/24 15:10 16:00 17:00 Temperature Pulse Rate 90 91 79 Pulse Rate [ Left Sitting Radial] Respiratory 24 20 Rate Blood Pressure 100/53 94/61 O2 Sat by Pulse 93 L 94 L Oximetry 11/26/24 11/26/24 11/26/24 18:00 19:31 20:00 Temperature 99.0 F Pulse Rate 87 80 Pulse Rate [ Left Sitting Radial] Respiratory 22 20 18 Rate Blood Pressure 104/48 92/56 O2 Sat by Pulse 93 L 95 Oximetry 11/26/24 11/26/24 20:11 20:23 Temperature Pulse Rate 79 76 Pulse Rate [ Left Sitting Radial] Respiratory Rate Blood Pressure O2 Sat by Pulse Oximetry - Reevaluation(s) Reevaluation #1: 11/26/24 02:43 Medical records reviewed Reevaluation #2: 11/26/24 02:54 Patient informed of results and questions answered Reevaluation #3: 11/26/24 02:55 No improvement in symptoms here in the ER Reevaluation #4: Was pt. sent in by a medical professional or institution (, [facility], BALLER TENDER, urgent c are, hospital, or senior care...) When possible be specific @ -no Did you speak to anyone other than the patient for history (EMS, parent, family, police, friend...)? What history was obtained from this source @ -no Did you review nursing and triage notes (agree or disagree)? Why? @ -agree Are old charts reviewed (outside hosp., previous admission, EMS record, old EKG, old radiological studies, urgent care reports/EKG's, senior care records)? Report findings @ -yes Differential Diagnosis (chest pain, altered mental status, abdominal pain women, abdominal pain men, vaginal bleeding, weakness, fever, dyspnea, syncope, headache, dizziness, GI bleed, back pain, seizure, CVA, palpatations, mental health, musculoskeletal)? @ -prior EKG interpreted by me (3pts min.). @ -yes X-rays interpreted by me (1pt min.). @ -yes positive for pneumonia CT interpreted by me (1pt min.). @ -no U/S interpreted by me (1pt. min.). @ -no What testing was considered but not performed or refused? (CT, X-rays, U/S, labs)? Why? @ -none What meds were considered but not given or refused? Why? @ -none Did you discuss the management of the patient with other professionals (professionals i.e. [facility] Martinez, BALLER TENDER, lab, RT, psych nurse, director social, commanding officer garage, teacher, bsa/aml compliance officer, caseworker protective services)? Give summary @ -no Was smoking cessation discussed for >3mins.? @ -no Was critical care preformed (if so, how long)? @ -no Were there social determinants of health that impacted care today? How? (Homelessness, low income, unemployed, alcoholism, drug addiction, transportation, low edu. Level, literacy, decrease access to med. care, halfway, rehab)? @ -none Was there de-escalation of care discussed even if they declined (Discuss DNR or withdrawal of care, Hospice)? DNR status @ -no What co-morbidities impacted this encounter? (DM, HTN, Smoking, COPD, CAD, Cancer, CVA, ARF, Chemo, Hep., AIDS, mental health diagnosis, sleep apnea, morbid obesity)? @ -none Was patient admitted / discharged? Hospital course, mention meds given and route, prescriptions, significant lab abnormalities, going to OR and other pertinent info. @ - 84 female to the ER for evaluation patient has persistent chest pain, sh ortness of breath, chest x-ray is positive for pneumonia and chest pain is persistent here in the ER Admitted Undiagnosed new problem with uncertain prognosis? @ -no Drug Therapy requiring intensive monitoring for toxicity (Heparin, Nitro, Insulin, Cardizem)? @ -no Were any procedures done? @ -no Diagnosis/symptom? @ -Chest pain with pneumonia Acute, or Chronic, or Acute on Chronic? @ -Acute Uncomplicated (without systemic symptoms) or Complicated (systemic symptoms)? @ -Complicated Side effects of treatment? @ -no Exacerbation, Progression, or Severe Exacerbation? @ -exacerbation Poses a threat to life or bodily function? How? (Chest pain, USA, PR, pneumonia, PE, COPD, DKA, ARF, appy, cholecystitis, CVA, Diverticulitis, Homicidal, Suicidal, threat to staff... and all critical care pts) @ -yes extremes of age Reevaluation #5: Differential Dyspnea: Coronary syndrome, arrhythmia, tamponade, asthma, COPD, pulmonary embolism, pneumonia, pneumothorax, pulmonary effusion, anaphylaxis, diabetic ketoacidosis, flailed chest, pulmonary contusion, diaphragmatic rupture, anemia, neuromuscular, this is not meant to be an all-inclusive list. - Consultations Consultation #1: Spoke with sound who agreed to admit this patient Medical Decision Making - Medical Decision Making 84 female to the ER for evaluation patient has persistent chest pain, shortness of breath, chest x-ray is positive for pneumonia and chest pain is persistent here in the ER - Lab Data Result diagrams: 12/01/24 07:49 12/02/24 07:53 Lab Results 11/26/24 11/26/24 11/26/24 Range/Units 01:01 01:01 01:01 WBC 14.08 H (4.50-10.00) 10*3/uL RBC 4.17 L (4.40-5.60) 10*6/uL Hgb 12.6 L (13.0-17.0) g/dL Hct 38.1 L (39.6-50.0) % MCV 91.4 (80.0-97.0) fL MCH 30.2 (27.0-32.0) pg MCHC 33.1 (32.0-37.0) g/dL Plt Count 298 (140-440) 10*3/uL MPV 9.1 L (9.5-12.2) fL Immature Gran % (Auto) 0.8 % Neutrophils % 67.3 % Lymphocytes % 12.1 % Monocytes % 7.2 % Eosinophils % 12.0 % Basophils % 0.6 % Immature Gran # 0.11 H (0.00-0.04) 10*3/uL Neutrophils # 9.46 H (1.80-7.70) 10*3/uL Lymphocytes # 1.71 (0.90-5.00) 10*3/uL Monocytes # 1.02 H (0.20-1.00) 10*3/uL Eosinophils # 1.69 H (0.04-0.35) 10*3/uL Basophils # 0.09 (0.00-0.10) 10*3/uL ESR (0-20) mm/Hr PT 11.7 (10.0-12.5) sec INR 1.1 (<1.2) APTT 26.5 (22.0-30.0) sec Sodium 135 L (137-145) mmol/L Potassium 4.4 (3.5-5.1) mmol/L Chloride 101 (98-107) mmol/L Carbon Dioxide 25 (22-30) mmol/L Anion Gap 9 mmol/L BUN 16 (9-20) mg/dL Creatinine 1.00 (0.66-1.25) mg/dL Est GFR (CKD-EPI)AfAm 80 (>60 ml/min/1.73 sqM) Est GFR (CKD-EPI)NonAf 69 (>60 ml/min/1.73 sqM) Glucose 122 H (74-99) mg/dL Estimated Ave Glu mg/dL mg/dL Hemoglobin A1c (<=6.0) % Plasma Lactic Acid Yung (0.7-2.0) mmol/L Calcium 9.2 (8.4-10.2) mg/dL Magnesium 1.9 (1.6-2.3) mg/dL Total Bilirubin 0.6 (0.2-1.3) mg/dL AST 25 (17-59) U/L ALT 15 (4-49) U/L Alkaline Phosphatase 73 (38-126) U/L Troponin I (0.000-0.034) ng/mL C-Reactive Protein (<1.0) mg/dL NT-Pro-B Natriuret Pep 380 pg/mL Total Protein 6.3 (6.3-8.2) g/dL Albumin 3.5 (3.5-5.0) g/dL Triglycerides (0.00-149.00) mg/dL Cholesterol (0.00-200.00) mg/dL LDL Cholesterol, Calc (0.0-131.0) mg/dL VLDL Cholesterol, Calc (5.00-40.00) mg/dL HDL Cholesterol (40.00-60.00) mg/dL Cholesterol/HDL Ratio Ratio TSH (0.350-5.500) UIU/ML 11/26/24 11/26/24 11/26/24 Range/Units 01:01 01:01 01:01 WBC (4.50-10.00) 10*3/uL RBC (4.40-5.60) 10*6/uL Hgb (13.0-17.0) g/dL Hct (39.6-50.0) % MCV (80.0-97.0) fL MCH (27.0-32.0) pg MCHC (32.0-37.0) g/dL Plt Count (140-440) 10*3/uL MPV (9.5-12.2) fL Immature Gran % (Auto) % Neutrophils % % Lymphocytes % % Monocytes % % Eosinophils % % Basophils % % Immature Gran # (0.00-0.04) 10*3/uL Neutrophils # (1.80-7.70) 10*3/uL Lymphocytes # (0.90-5.00) 10*3/uL Monocytes # (0.20-1.00) 10*3/uL Eosinophils # (0.04-0.35) 10*3/uL Basophils # (0.00-0.10) 10*3/uL ESR (0-20) mm/Hr PT (10.0-12.5) sec INR (<1.2) APTT (22.0-30.0) sec Sodium (137-145) mmol/L Potassium (3.5-5.1) mmol/L Chloride (98-107) mmol/L Carbon Dioxide (22-30) mmol/L Anion Gap mmol/L BUN (9-20) mg/dL Creatinine (0.66-1.25) mg/dL Est GFR (CKD-EPI)AfAm (>60 ml/min/1.73 sqM) Est GFR (CKD-EPI)NonAf (>60 ml/min/1.73 sqM) Glucose (74-99) mg/dL Estimated Ave Glu mg/dL 123 mg/dL Hemoglobin A1c 5.9 (<=6.0) % Plasma Lactic Acid Yung 1.3 (0.7-2.0) mmol/L Calcium (8.4-10.2) mg/dL Magnesium (1.6-2.3) mg/dL Total Bilirubin (0.2-1.3) mg/dL AST (17-59) U/L ALT (4-49) U/L Alkaline Phosphatase (38-126) U/L Troponin I <0.012 (0.000-0.034) ng/mL C-Reactive Protein (<1.0) mg/dL NT-Pro-B Natriuret Pep pg/mL Total Protein (6.3-8.2) g/dL Albumin (3.5-5.0) g/dL Triglycerides (0.00-149.00) mg/dL Cholesterol (0.00-200.00) mg/dL LDL Cholesterol, Calc (0.0-131.0) mg/dL VLDL Cholesterol, Calc (5.00-40.00) mg/dL HDL Cholesterol (40.00-60.00) mg/dL Cholesterol/HDL Ratio Ratio TSH (0.350-5.500) UIU/ML 11/26/24 11/26/24 11/26/24 Range/Units 01:01 01:01 01:01 WBC (4.50-10.00) 10*3/uL RBC (4.40-5.60) 10*6/uL Hgb (13.0-17.0) g/dL Hct (39.6-50.0) % MCV (80.0-97.0) fL MCH (27.0-32.0) pg MCHC (32.0-37.0) g/dL Plt Count (140-440) 10*3/uL MPV (9.5-12.2) fL Immature Gran % (Auto) % Neutrophils % % Lymphocytes % % Monocytes % % Eosinophils % % Basophils % % Immature Gran # (0.00-0.04) 10*3/uL Neutrophils # (1.80-7.70) 10*3/uL Lymphocytes # (0.90-5.00) 10*3/uL Monocytes # (0.20-1.00) 10*3/uL Eosinophils # (0.04-0.35) 10*3/uL Basophils # (0.00-0.10) 10*3/uL ESR 7 (0-20) mm/Hr PT (10.0-12.5) sec INR (<1.2) APTT (22.0-30.0) sec Sodium (137-145) mmol/L Potassium (3.5-5.1) mmol/L Chloride (98-107) mmol/L Carbon Dioxide (22-30) mmol/L Anion Gap mmol/L BUN (9-20) mg/dL Creatinine (0.66-1.25) mg/dL Est GFR (CKD-EPI)AfAm (>60 ml/min/1.73 sqM) Est GFR (CKD-EPI)NonAf (>60 ml/min/1.73 sqM) Glucose (74-99) mg/dL Estimated Ave Glu mg/dL mg/dL Hemoglobin A1c (<=6.0) % Plasma Lactic Acid Yung (0.7-2.0) mmol/L Calcium (8.4-10.2) mg/dL Magnesium 1.8 (1.6-2.3) mg/dL Total Bilirubin (0.2-1.3) mg/dL AST (17-59) U/L ALT (4-49) U/L Alkaline Phosphatase (38-126) U/L Troponin I (0.000-0.034) ng/mL C-Reactive Protein 1.5 H (<1.0) mg/dL NT-Pro-B Natriuret Pep pg/mL Total Protein (6.3-8.2) g/dL Albumin (3.5-5.0) g/dL Triglycerides 115.00 (0.00-149.00) mg/dL Cholesterol 111.00 (0.00-200.00) mg/dL LDL Cholesterol, Calc 43.2 (0.0-131.0) mg/dL VLDL Cholesterol, Calc 23.00 (5.00-40.00) mg/dL HDL Cholesterol 44.80 (40.00-60.00) mg/dL Cholesterol/HDL Ratio 2.48 Ratio TSH 4.250 (0.350-5.500) UIU/ML - EKG Data -: EKG Interpreted by Me (EKG is sinus 85 CO 178 QRS 128 QTc 454) - Radiology Data Radiology results: report reviewed (CXR is positive for pneumonia), image reviewed Disposition Clinical Impression: Chest wall syndrome, Chest pain, Unstable angina, Dizziness, NICM (nonischemic cardiomyopathy), S/P cardiac cath, Atypical chest pain Disposition: ADMITTED IP TO THIS HOSP Condition: Fair Is patient prescribed a controlled substance at d/c from ED?: No Time of Disposition: 03:30
[2024-11-26] MEDS: IPRATROPIUM-ALBUTEROL 3 ML NEB INHALATION STA ×2 (01:15→04:46)
[2024-11-26 01:16] LABS: Basophils # (A) 0.09 10*3/uL (0.00-0.10); Basophils % (A) 0.6 %; Eosinophils # (A) 1.69 10*3/uL (0.04-0.35); HCT 38.1 % (39.6-50.0); HGB 12.6 g/dL (13.0-17.0); Lymphocytes # (A) 1.71 10*3/uL (0.90-5.00); Lymphocytes % (A) 12.1 %; MCH 30.2 pg (27.0-32.0); MCHC 33.1 g/dL (32.0-37.0); MCV 91.4 fL (80.0-97.0); Mean Platelet Volume 9.1 fL (9.5-12.2); Monocytes # (A) 1.02 10*3/uL (0.20-1.00); Monocytes % (A) 7.2 %; Neutrophils # (A) 9.46 10*3/uL (1.80-7.70); Neutrophils % (A) 67.3 %; Platelet Count 298 10*3/uL (140-440); RBC 4.17 10*6/uL (4.40-5.60); RDW 13.9 % (11.5-14.5); WBC 14.08 10*3/uL (4.50-10.00)
[2024-11-26 01:29] LABS: ALT 15 U/L (4-49); AST 25 U/L (17-59); African American GFR (CKD) 80 (>60 ml/min/1.73 sqM); Albumin 3.5 g/dL (3.5-5.0); Alkaline Phosphatase 73 U/L (38-126); Anion Gap 9 mmol/L; Blood Urea Nitrogen 16 mg/dL (9-20); Calcium 9.2 mg/dL (8.4-10.2); Carbon Dioxide 25 mmol/L (22-30); Chloride 101 mmol/L (98-107); Glucose 122 mg/dL (74-99); Magnesium 1.9 mg/dL (1.6-2.3); Non-African American GFR(CKD) 69 (>60 ml/min/1.73 sqM); Potassium 4.4 mmol/L (3.5-5.1); Sodium 135 mmol/L (137-145); Total Bilirubin 0.6 mg/dL (0.2-1.3); Total Protein 6.3 g/dL (6.3-8.2)
[2024-11-26 01:37] LABS: NT-Pro-B-Type Natriuretic Pept 380 pg/mL
[2024-11-26 01:39] LABS: INR 1.1 (<1.2); Partial Thromboplastin Time 26.5 sec (22.0-30.0); Prothrombin Time 11.7 sec (10.0-12.5)
[2024-11-26] MEDS: KETOROLAC 15 MG/ML 1 ML VIAL IVP STA (01:52)
[2024-11-26] MEDS: LORazepam 1 MG/0.5 ML VIAL IV STA (01:56)
--- NOTE | 2024-11-26 03:09 | XR ---
EXAM: XR Chest, 2 Views CLINICAL HISTORY: difficulty breathing TECHNIQUE: Frontal and lateral views of the chest. COMPARISON: Chest two views dated 06/21/2018 FINDINGS: Lungs: Subsegmental opacities noted at the lung bases. The pulmonary vasculature appears somewhat equalized. Pleural space: Asymmetric elevation of the left hemidiaphragm. No large pleural effusion or pneumothorax. Heart: Unremarkable. No cardiomegaly. Mediastinum: The mediastinal contours are unremarkable. The trachea is midline. Bones/joints: Unremarkable. No acute fracture. Tubes, lines and devices: The cardiac silhouette is more prominent in size when compared to the previous examination with interval placement of a left dual lead pacer. Implanted loop recorder overlies the left hemithorax. IMPRESSION: Bibasilar subsegmental changes, [id number], are presumed asymmetric edema. Coexisting infection is difficult to exclude in this region. No large pleural effusion or pneumothorax.
[2024-11-26] MEDS ORDERED: PNEUMONIA PROTOCOL UTILIZED 1 EACH MISC PO PRN (03:34)
[2024-11-26] MEDS: SODIUM CHLORIDE 0.9% 1,000 ML IV SCH (04:19)
[2024-11-26] MEDS: AZITHROMYCIN 500 MG in SODIUM CHLORIDE 0.9% 250 ML IVPB STA (04:25)
[2024-11-26] MEDS: ALBUTEROL NEBULIZED 2.5 MG/3 ML INHALATION PRN (04:47)
[2024-11-26] MEDS: ATORVASTATIN 20 MG TAB PO SCH (05:26)
[2024-11-26] MEDS: ASPIRIN 81 MG PO SCH (05:26)
--- NOTE | 2024-11-26 06:13 | P.HPIM ---
History of Present Illness H&P Date: 11/26/24 Chief Complaint: Shortness of breath Patient is a 84 year old male with CAD, COPD, AR, former heavy smoker presented to the ED with shortness of breath and chest pain. Patient reports his shortness of breath started yesterday night when he was resting. He states having mids ternal chest pain with deep breaths, no radiation of pain. Associated with that he experienced cough for two weeks, with dark blackish sputum production initially, but it is clear now. He denies fever, chills, trauma. Denies any travel history. He uses oxygen intermittently at home, usually at night, at 2L. He mentions having a heart catheterization in the past but denies any stents placed. Denies history of CHF. He reports getting short of breath when walking to and from the restroom at home, but states that its at baseline. He uses a walker at home to ambulate. He quit smoking 13 years ago. Patient recently 11/13/24 underwent insertion of dual-chamber permanent pacemaker for sick sinus syndrome, symptomatic bradycardia with need for beta-td for VT and cardiomyopathy. Denies fever, chills, palpitations, abdominal pain, nausea, vomiting, hematuria, dysuria, hematochezia, melena, headache, slurred speech, numbness, tingling, dizziness, lightheadedness, blurred vision, double vision. ED documentation reviewed. In the ED patient was treated with DuoNeb, ketorolac, lorazepam, Rocephin, 0.9 normal saline, Zithromax. Vitals on admission T 98.6 F, MO 84 bpm, RR 18, BP 101/67, SpO2 94% on 2 L oxygen via nasal cannula EKG independently interpreted as sinus rhythm, occasional PVCs, pression, rate 85 bpm, QTc 454 ms, QRS 128 ms Chest x-ray shows bibasilar subsegmental changes, left greater than right are presumed asymmetric edema, coexisting infection is difficult to exclude in this region, no large pleural effusion or pneumothorax Labs on admission show WBC 14.08, hemoglobin 12.6, platelet 298, INR 1.1, sodium 135, potassium 4.4, creatinine 1, glucose 122, magnesium 1.9, NT proBNP 380, troponin I <0.012 Review of systems: Pertinent positives and negatives as discussed in HPI, a complete review of systems was performed and all other systems are negative. Physical examination: Vital signs reviewed General: nontoxic, no distress, appears at stated age Derm: warm, dry, intact Head: atraumatic, normocephalic, symmetric Eyes: EOMI, anicteric sclera Mouth: no lip lesion, mucus membranes moist Cardiovascular: S1 S2 reg, no murmur Lungs: CTA bilateral, no rhonchi, no rales, no accessory muscle use Abdominal: soft, non-tender to palpation Extremities: No cyanosis, clubbing, or pedal edema. Neuro: Alert, Oriented, Gross neurological examination did not reveal any focal deficits. Psych: well appearing, appropriate affect Assessment/Plan: Patient is a 84 year old male with CAD, COPD, AR presented to the ED with shortness of breath and chest pain. Patient admitted to internal medicine service. Active: #. Community acquired pneumonia #. Leukocytosis, likely secondary to above #. Chronic hypoxic respiratory failure #. COPD (on home oxygen 2L PRN) Chest x-ray shows bibasilar subsegmental changes, left greater than right are presumed asymmetric edema, coexisting infection is difficult to exclude in this region, no large pleural effusion or pneumothorax Received 1 dose of azithromycin and Rocephin in the ED Continue azithromycin 500 mg IVPB for total of 3 days, Rocephin 2 g IVPB every 24 hours for total of 5 days Continue nebulized albuterol, DuoNeb Continue supplemental oxygen as needed Obtain blood culture, sputum culture, Legionella antigen #. Atypical chest pain #. CAD S/p cardiac catheterization troponin I <0.012 EKG independently interpreted as sinus rhythm, occasional PVCs, poor R wave progression, rate 85 bpm, QTc 454 ms, QRS 128 ms Continue home meds Aspirin, statin, Plavix Resume home cardiac meds once verified by the pharmacy Continue to trend troponin Continue telemetry monitoring Cardiology consulted #. Normocytic anemia Obtain iron studies, LDH, retic count, vit B12, folate Monitor CBC Transfuse for Hb<7 #. Mild hyponatremia Monitor BMP IVF hydration with normal saline 75 cc per hour Chronic: #. Sick sinus syndrome S/p dual chamber permanent pacemaker implantation 11/13/24 #. AR not on CPAP, cannot tolerate #. History of TIA #. Anxiety/depression #. Restless leg syndrome Resume home meds once verified by the pharmacy F: None E: Replete as required N: Heart healthy diet A: Bedrest DVT prophylaxis: Lovenox 40 mg SQ daily The patient is admitted with an anticipated more than 2 midnight stay for ev aluation of chest pain and shortness of breath CODE STATUS: FULL CODE Discussed with: Patient Anticipated discharge place: Pending clinical course Dictation was produced using [employer] dictation software. please excuse any grammatical, word or spelling errors. Dominic Bright MD PGY-1 IM I have seen and evaluated the patient today. I Discussed the case with the resident and agree with the resident's findings I edited the assessment and plan as necessary as documented in the resident's note. Past Medical History Past Medical History: Coronary Artery Disease (CAD), Cancer, Chest Pain / Angina, COPD, CVA/TIA, Hyperlipidemia, Osteoarthritis (OA), Sleep Apnea/CPAP/BIPAP, Syncope Additional Past Medical History / Comment(s): bladder cancer no chemo or radiation. TIA- old per testing- no residuals. recent URI infection getting better used 02 concentrator a little more. watching aorta per . BP runs low. cannot tolerate CPAP. 02 concentrator at night 2liters and as needed. History of Any Multi-Drug Resistant Organisms: None Reported Past Surgical History: Heart Catheterization, Hernia Repair Additional Past Surgical History / Comment(s): abdominal wall hernia. loop recorder, steph inguinal hernia. Past Anesthesia/Blood Transfusion Reactions: No Reported Reaction Additional Past Anesthesia/Blood Transfusion Reaction / Comment(s): BP drops Smoking Status: Former smoker, Heavy tobacco smoker - Past Family History Mother Family Medical History: Congestive Heart Failure (CHF) Father Family Medical History: Cancer Medications and Allergies Home Medications Medication Instructions Recorded Confirmed Type Aspirin 81 mg PO DAILY 02/21/17 11/13/24 History Nitroglycerin Sl Tabs [Nitrostat] 0.4 mg SUBLINGUAL Q5M PRN 02/21/17 11/10/24 History Clopidogrel [Plavix] 75 mg PO DAILY #30 tab 02/23/17 11/13/24 Rx Atorvastatin [Lipitor] 20 mg PO HS 04/28/24 11/13/24 History Fluticasone/Umeclidin/Vilanter 1 puff INHALATION BID 04/28/24 11/13/24 History [Trelegy Ellipta 200-62.5-25] Sertraline [Zoloft] 100 mg PO HS 04/28/24 11/13/24 History rOPINIRole HCL [Requip] 0.5 mg PO HS 04/28/24 11/13/24 History Acetaminophen Tab [Tylenol Tab] 500 mg PO DIRECTED PRN 11/10/24 11/10/24 History Albuterol Inhaler [Ventolin Hfa 1 - 2 puff INHALATION Q6H PRN 11/10/24 11/10/24 History Inhaler] Ibuprofen [Advil] 200 mg PO DIRECTED PRN 11/10/24 11/10/24 History Allergies Allergy/AdvReac Type Severity Reaction Status Date / Time tape AdvReac blisters Uncoded 11/10/24 11:20 Physical Exam Vitals: Vital Signs Temp Pulse Pulse Resp BP Pulse Ox 11/26/24 01:20 78 11/26/24 01:10 75 11/26/24 01:07 73 11/26/24 00:52 98.6 F 84 18 101/67 94 L Intake and Output 11/25/24 11/25/24 11/26/24 14:59 22:59 06:59 Other: Weight 102.058 kg Results CBC & Chem 7: 11/26/24 01:01 11/26/24 01:01 Labs: Abnormal Lab Results - Last 24 Hours (Table) 11/26/24 11/26/24 Range/Units 01:01 01:01 WBC 14.08 H (4.50-10.00) 10*3/uL RBC 4.17 L (4.40-5.60) 10*6/uL Hgb 12.6 L (13.0-17.0) g/dL Hct 38.1 L (39.6-50.0) % MPV 9.1 L (9.5-12.2) fL Immature Gran # 0.11 H (0.00-0.04) 10*3/uL Neutrophils # 9.46 H (1.80-7.70) 10*3/uL Monocytes # 1.02 H (0.20-1.00) 10*3/uL Eosinophils # 1.69 H (0.04-0.35) 10*3/uL Sodium 135 L (137-145) mmol/L Glucose 122 H (74-99) mg/dL
[2024-11-26 08:11] LABS: HCT 36.1 % (39.6-50.0); HGB 11.4 g/dL (13.0-17.0); MCH 29.7 pg (27.0-32.0); MCHC 31.6 g/dL (32.0-37.0); Mean Platelet Volume 9.4 fL (9.5-12.2); Platelet Count 253 10*3/uL (140-440); RBC 3.84 10*6/uL (4.40-5.60); RDW 14.2 % (11.5-14.5); WBC 12.17 10*3/uL (4.50-10.00)
[2024-11-26 08:33] LABS: African American GFR (CKD) 68 (>60 ml/min/1.73 sqM); Anion Gap 9 mmol/L; Blood Urea Nitrogen 18 mg/dL (9-20); Calcium 8.8 mg/dL (8.4-10.2); Carbon Dioxide 26 mmol/L (22-30); Chloride 102 mmol/L (98-107); Glucose 140 mg/dL (74-99); Non-African American GFR(CKD) 59 (>60 ml/min/1.73 sqM); Potassium 4.8 mmol/L (3.5-5.1); Sodium 137 mmol/L (137-145)
[2024-11-26] MEDS: ENOXAPARIN 40 MG/0.4 ML SYRINGE SQ SCH (09:50)
--- NOTE | 2024-11-26 11:36 | P.CRDCN ---
History of Present Illness Consult date: 11/26/24 History of present illness: HISTORY OF PRESENTING ILLNESS: Patient is known to Dr. Henson. History of hypertension aortic insufficiency, nonischemic cardiomyopathy with recovered EF, TIA COPD, previous tobacco smoker, nonsustained VT. Patient has been dealing with few instances of questionable syncope and passing out spells since January 2024. For this he had a loop recorder placed in April 2024. In October 2024 patient had aneurysm couple episode while sitting in the chair, loop recorder recorded a heart rate of 30 to 40 bpm. There was no reversible causes of bradycardia and for this he got a PPM placed 11/13/2024. This time he presented to the hospital because of substernal chest pressure and pain which gets worse with taking deep breath and coughing. This has been going on for last 2 to 3 days. He is also having difficulty in taking deep breaths because of it. Admission BP 101/76, heart rate 84, EKG shows sinus rhythm with intermittent PVCs. Hemoglobin 11, BUN 16, creatinine 1 troponin negative, NT-proBNP 380 REVIEW OF SYSTEMS: 14 point review of system is negative except what is mentioned above in HPI. PHYSICAL EXAMINATION: Neck: Brisk carotid upstroke, no jugular venous distention. Lungs: Clear to auscultation. Heart: Regular rate and rhythm, S1-S2, , no murmur or rub. Abdomen: Soft nontender, positive bowel sounds. Extremities: No edema, intact distal pulses. Neuro: Alert, oritented, no focal deficits. Detailed neuro exam was not p erformed. ASSESSMENT: # Substernal chest pain, pleuritic in nature # Left lower lobe pneumonia with evidence of leukocytosis. When compared to CXR from 11/13/2024, appears slightly better. # History of sick sinus syndrome status post PPM 11/13/2024 # Prior history of TIA # Prior history of cardiomyopathy with recovered LVEF PLAN: Obtain echo to look for any pericardial effusion pericarditis Obtain ESR and CRP levels Obtain PPM interrogation At home he is on aspirin and Plavix for TIA. He is on metoprolol XL 25 mg, Lipitor 20 mg. Continue these meds Isiah Evangelista MD, FACC, RPVI Thank you for allowing [facility] to participate in this patient's care. Feel free to reach out in case of any followup questions. Past Medical History Past Medical History: Coronary Artery Disease (CAD), Cancer, Chest Pain / Angina, COPD, CVA/TIA, Hyperlipidemia, Osteoarthritis (OA), Sleep Apnea/CPAP/BIPAP, Syncope Additional Past Medical History / Comment(s): bladder cancer no chemo or radiation. TIA- old per testing- no residuals. recent URI infection getting better used 02 concentrator a little more. watching aorta per . BP runs low. cannot tolerate CPAP. 02 concentrator at night 2liters and as needed. History of Any Multi-Drug Resistant Organisms: None Reported Past Surgical History: Heart Catheterization, Hernia Repair Additional Past Surgical History / Comment(s): abdominal wall hernia. loop recorder, steph inguinal hernia. Past Anesthesia/Blood Transfusion Reactions: No Reported Reaction Additional Past Anesthesia/Blood Transfusion Reaction / Comment(s): BP drops Smoking Status: Former smoker, Heavy tobacco smoker - Past Family History Mother Family Medical History: Congestive Heart Failure (CHF) Father Family Medical History: Cancer Medications and Allergies Home Medications Medication Instructions Recorded Confirmed Type Aspirin 81 mg PO DAILY 02/21/17 11/13/24 History Nitroglycerin Sl Tabs [Nitrostat] 0.4 mg SUBLINGUAL Q5M PRN 02/21/17 11/10/24 History Clopidogrel [Plavix] 75 mg PO DAILY #30 tab 02/23/17 11/13/24 Rx Atorvastatin [Lipitor] 20 mg PO HS 04/28/24 11/13/24 History Fluticasone/Umeclidin/Vilanter 1 puff INHALATION BID 04/28/24 11/13/24 History [Trelegy Ellipta 200-62.5-25] Sertraline [Zoloft] 100 mg PO HS 04/28/24 11/13/24 History rOPINIRole HCL [Requip] 0.5 mg PO HS 04/28/24 11/13/24 History Acetaminophen Tab [Tylenol Tab] 500 mg PO DIRECTED PRN 11/10/24 11/10/24 History Albuterol Inhaler [Ventolin Hfa 1 - 2 puff INHALATION Q6H PRN 11/10/24 11/10/24 History Inhaler] Ibuprofen [Advil] 200 mg PO DIRECTED PRN 11/10/24 11/10/24 History Allergies Allergy/AdvReac Type Severity Reaction Status Date / Time tape AdvReac blisters Uncoded 11/10/24 11:20 Physical Exam Vitals: Vital Signs Temp Pulse Pulse Resp BP Pulse Ox 11/26/24 10:00 93 18 105/60 98 11/26/24 09:00 93 18 100/63 97 11/26/24 08:30 84 11/26/24 08:21 80 11/26/24 08:00 81 18 98/58 97 11/26/24 07:53 75 18 109/66 98 11/26/24 07:29 80 18 103/59 97 11/26/24 05:01 80 11/26/24 04:47 78 11/26/24 04:23 70 16 98/64 96 11/26/24 01:20 78 11/26/24 01:10 75 11/26/24 01:07 73 11/26/24 00:52 98.6 F 84 18 101/67 94 L Intake and Output 11/25/24 11/26/24 11/26/24 22:59 06:59 14:59 Other: Weight 102.058 kg Results 11/26/24 07:13 11/26/24 07:13 Cardiac Enzymes 11/26/24 11/26/24 11/26/24 Range/Units 01:01 01:01 07:13 AST 25 (17-59) U/L Lactate Dehydrogenase (120-246) U/L Troponin I <0.012 <0.012 (0.000-0.034) ng/mL 11/26/24 Range/Units 07:13 AST (17-59) U/L Lactate Dehydrogenase 271 H (120-246) U/L Troponin I (0.000-0.034) ng/mL Coagulation 11/26/24 Range/Units 01:01 PT 11.7 (10.0-12.5) sec APTT 26.5 (22.0-30.0) sec CBC 11/26/24 11/26/24 Range/Units 01:01 07:13 WBC 14.08 H 12.17 H (4.50-10.00) 10*3/uL RBC 4.17 L 3.84 L (4.40-5.60) 10*6/uL Hgb 12.6 L 11.4 L (13.0-17.0) g/dL Hct 38.1 L 36.1 L (39.6-50.0) % Plt Count 298 253 (140-440) 10*3/uL Comprehensive Metabolic Panel 11/26/24 11/26/24 Range/Units 01:01 07:13 Sodium 135 L 137 (137-145) mmol/L Potassium 4.4 4.8 (3.5-5.1) mmol/L Chloride 101 102 (98-107) mmol/L Carbon Dioxide 25 26 (22-30) mmol/L BUN 16 18 (9-20) mg/dL Creatinine 1.00 1.15 (0.66-1.25) mg/dL Glucose 122 H 140 H (74-99) mg/dL Calcium 9.2 8.8 (8.4-10.2) mg/dL AST 25 (17-59) U/L ALT 15 (4-49) U/L Alkaline Phosphatase 73 (38-126) U/L Total Protein 6.3 (6.3-8.2) g/dL Albumin 3.5 (3.5-5.0) g/dL Current Medications Generic Name Dose Route Start Last Admin Trade Name Freq PRN Reason Stop Dose Admin Albuterol Sulfate 2.5 mg 11/26/24 03:34 11/26/24 08:19 Albuterol Nebulized 2.5 Mg/3 Ml INHALATION 2.5 mg RT-Q4H PRN Administration Shortness Of Breath Or Wheezing Aspirin 81 mg 11/26/24 04:45 11/26/24 09:50 Aspirin 81 Mg PO 81 mg DAILY JOSE G Administration Atorvastatin Calcium 20 mg 11/26/24 04:45 11/26/24 05:26 Atorvastatin 20 Mg Tab PO 20 mg HS JOSE G Administration Clopidogrel Bisulfate 75 mg 11/26/24 11:45 Clopidogrel 75 Mg Tab PO DAILY JOSE G Enoxaparin Sodium 40 mg 11/26/24 09:00 11/26/24 09:50 Enoxaparin 40 Mg/0.4 Ml Syringe SQ 40 mg DAILY JOSE G Administration Sodium Chloride 1,000 mls @ 75 mls/hr 11/26/24 03:45 11/26/24 04:19 Saline 0.9% IV 20 mls/hr .[id number] JOSE G Administration Ceftriaxone Sodium 2 gm/ 50 mls @ 100 mls/hr 11/27/24 09:00 Sodium Chloride IVPB 11/30/24 09:29 Q24HR JOSE G Protocol Azithromycin 500 mg/ Sodium 250 mls @ 250 mls/hr 11/27/24 09:00 Chloride IVPB 11/28/24 09:59 DAILY JOSE G Protocol Metoprolol Succinate 25 mg 11/26/24 11:45 Metoprolol Succinate (Er) 25 Mg Tab.Er.24h PO DAILY [facility] Miscellaneous Information 1 each 11/26/24 03:34 Pneumonia Protocol Utilized 1 Each Misc PO ONCE PRN Per Protocol Intake and Output 11/25/24 11/26/24 11/26/24 22:59 06:59 14:59 Other: Weight 102.058 kg 11/26/24 07:13 11/26/24 07:13
[2024-11-26] MEDS: CLOPIDOGREL 75 MG TAB PO SCH (11:52)
[2024-11-26] MEDS: METOPROLOL SUCCINATE (ER) 25 MG TAB.ER.24H PO SCH (11:52)
[2024-11-26 12:50] LABS: Reticulocyte % 3.29 % (0.10-1.80)
[2024-11-26 13:08] LABS: % Iron Saturation 7.83 (15.00-50.00)
[2024-11-26 14:19] LABS: Chol/HDL Ratio 2.48 Ratio; LDL Cholesterol,Calculated 43.2 mg/dL (0.0-131.0); Magnesium 1.8 mg/dL (1.5-2.4)
[2024-11-26] MEDS: KETOROLAC 15 MG/ML 1 ML VIAL IVP SCH (17:02)
[2024-11-26] MEDS: SYMBICORT 160-4.5 MCG INHALER INHALATION SCH (20:09)
[2024-11-26] MEDS: SERTRALINE 50 MG TAB PO SCH (21:44)
--- NOTE | 2024-11-27 07:47 | XR ---
EXAMINATION TYPE: XR chest 2V DATE OF EXAM: 11/27/2024 7:40 AM COMPARISON: 11/26/2024 CLINICAL INDICATION: Male, 84 years old with history of pneumonia, , TECHNIQUE: Frontal and lateral views FINDINGS: Loop recorder device projects at the left heart margin. Left anterior chest wall pacemaker generator with right atrial and right ventricular leads. Chronic full-thickness rotator cuff tear redemonstrate d right shoulder. Heart mildly enlarged. Diffuse interstitial opacities persist along with small bila teral pleural effusions. Patchy left basilar opacity similar as well. IMPRESSION: Diffuse bilateral interstitial opacities, more focal left basilar opacity, and small bilateral pleura l effusions persist. [facility], Workstation: [id number], 11/27/2024 7:44 AM
[2024-11-27] MEDS: TIOTROPIUM 2.5 MCG INHALER INHALATION SCH (08:08)
[2024-11-27] MEDS: AZITHROMYCIN 500 MG in SODIUM CHLORIDE 0.9% 250 ML IVPB SCH (08:24)
[2024-11-27 10:17] LABS: Basophils # (A) 0.04 X 10*3/uL (0.00-0.10); Basophils % (A) 0.3 %; Eosinophils # (A) 0.98 X 10*3/uL (0.04-0.35); Eosinophils % (A) 8.3 %; HCT 35.8 % (39.6-50.0); HGB 11.2 g/dL (13.0-17.0); Lymphocytes # (A) 1.31 X 10*3/uL (0.90-5.00); Lymphocytes % (A) 11.2 %; MCH 29.4 pg (27.0-32.0); MCHC 31.3 g/dL (32.0-37.0); Monocytes # (A) 1.25 X 10*3/uL (0.20-1.00); Monocytes % (A) 10.6 %; NRBC Per 100 WBC 0 X 10*3/uL (0.00-0.01); Neutrophils # (A) 8.09 X 10*3/uL (1.80-7.70); Platelet Count 242 X 10*3/uL (140-440); RBC 3.81 X 10*6/uL (4.40-5.60); RDW 14.5 % (11.5-14.5); WBC 11.74 X 10*3/uL (4.50-10.00)
[2024-11-27 10:30] LABS: BUN/Creat Ratio 18.25 Ratio (12.00-20.00); Blood Urea Nitrogen 21.9 mg/dL (9.0-27.0); Carbon Dioxide 22.5 mmol/L (21.6-31.8); Chloride 102 mmol/L (96-109); Glucose 123 mg/dL (70-110); Potassium 4.7 mmol/L (3.5-5.5); Sodium 134 mmol/L (135-145)
--- NOTE | 2024-11-27 11:13 | CA ---
Transthoracic Echo Report Name: Stephan Becker Age: 84 Gender: M : 1940 Exam Date: 11/27/2024 07:46 Exam Location: [facility] Ht (in): 71 Wt (lb): 225 Ordering Physician: Isiah Evangelista MD ([email or web address]) Attending/Referring Phys: Chief Pharmacist Leroy Silva, MEGAN Procedure CPT: Indications: pericardial effusion Cardiac Hx: CAD, COPD, CVA/TIA, Pacemaker/ Limited for pericardial effusion Technical Quality: Technically difficult study Contrast 1: Total Dose (mL): Contrast 2: Total Dose (mL): MEASUREMENTS (Male / Female) Normal Values 2D ECHO LV Diastolic Diameter PLAX 6.7 cm 4.2 - 5.9 / 3.9 - 5.3 cm LV Systolic Diameter PLAX 5.1 cm IVS Diastolic Thickness 1.3 cm 0.6 - 1.0 / 0.6 - 0.9 cm LVPW Diastolic Thickness 1.3 cm 0.6 - 1.0 / 0.6 - 0.9 cm LV Relative Wall Thickness 0.4 RV Internal Dim ED PLAX 3.8 cm LA Systolic Diameter LX 4.1 cm 3.0 - 4.0 / 2.7 - 3.8 cm DOPPLER AI Peak Velocity 403.8 cm/s AI Peak Gradient 65.2 mmHg AI Pressure Half Time 464.2 ms TR Peak Velocity 251.9 cm/s TR Peak Gradient 25.4 mmHg FINDINGS Left Ventricle Left ventricular ejection fraction is estimated at 40%. Mildly increased septal wall thickness. Moderately increased left ventricular diastolic diameter. Global decrease in contractility Right Ventricle Right Atrium Left Atrium Mildly increased left atrial diameter. Mitral Valve Aortic Valve Mild to moderate aortic regurgitation. No aortic stenosis. Tricuspid Valve Pulmonic Valve Pericardium Mild to Moderate pericardial effusion. Aorta Aortic annulus normal. CONCLUSIONS He mildly enlarged left ventricle with a global decrease in contractility, moderate-sized pericardial effusion without tamponade. Mild to moderate aortic insufficiency Previewed by: Dr. Bob Rosales MD (Electronically Signed) Final Date: 27 November 2024 11:12
[2024-11-27] MEDS: COLCHICINE 0.6 MG EACH PO SCH (12:06)
--- NOTE | 2024-11-27 12:11 | P.PN ---
Subjective HISTORY OF PRESENTING ILLNESS: Patient is known to Dr. Henson. History of hypertension aortic insufficiency, nonischemic cardiomyopathy with recovered EF, TIA COPD, previous tobacco smoker, nonsustained VT. Patient has been dealing with few instances of questionable syncope and passing out spells since January 2024. For this he had a loop rec order placed in April 2024. In October 2024 patient had aneurysm couple episode while sitting in the chair, loop recorder recorded a heart rate of 30 to 40 bpm. There was no reversible causes of bradycardia and for this he got a PPM placed 11/13/2024. This time he presented to the hospital because of substernal chest pressure and pain which gets worse with taking deep breath and coughing. This has been going on for last 2 to 3 days. He is also having difficulty in taking deep breaths because of it. Admission BP 101/76, heart rate 84, EKG shows sinus rhythm with intermittent PVCs. Hemoglobin 11, BUN 16, creatinine 1 troponin negative, NT-proBNP 380 11/27/2024 Patient seen and examined resting comfortably in bed in no acute distress. He continues to have some pleuritic type chest discomfort. Limited echocardiogram reveals a moderate-sized pericardial effusion, no tamponade, ejection fraction 40%. Blood pressure 101/64 heart rate 76 afebrile maintaining oxygen saturation on nasal cannula. Laboratory data reviewed, WBC 11.7, hemoglobin 11.2, platelets 242, sodium 134, potassium 4.7, creatinine 1.2, ESR 7, CRP 1.5. PHYSICAL EXAMINATION: Neck: Brisk carotid upstroke, no jugular venous distention. Lungs: Clear to auscultation. Heart: Regular rate and rhythm, S1-S2, , no murmur or rub. Abdomen: Soft nontender, positive bowel sounds. Extremities: No edema, intact distal pulses. Neuro: Alert, oritented, no focal deficits. Detailed neuro exam was not performed. ASSESSMENT: # Substernal chest pain, pleuritic in nature # Left lower lobe pneumonia with evidence of leukocytosis. When compared to CXR from 11/13/2024, appears slightly better. # History of sick sinus syndrome status post PPM 11/13/2024 # Prior history of TIA # Prior history of cardiomyopathy with recovered LVEF PLAN: Add colchicine 0.6 mg twice daily. Discontinue Plavix and continue aspirin for TIA history. Consult CT surgery. Explained our thoughts in detail to the patient and his who was on the phone, questions answered appropriately. Further recommendations to follow based upon clinical course. Nurse Practitioner note has been reviewed, I agree with a documented findings and plan of care. Patient was seen and examined. Objective - Vital Signs Vital signs: Vital Signs Temp 97.6 F 11/27/24 06:05 Pulse 76 11/27/24 06:05 Resp 16 11/27/24 06:05 BP 101/64 11/27/24 06:05 Pulse Ox 95 11/27/24 06:05 FiO2 Intake & Output 11/26/24 11/27/24 11/27/24 18:59 06:59 18:59 Weight 102.058 kg Other: Voiding Method Toilet Urinal # Voids 2 - Labs CBC & Chem 7: 11/27/24 05:24 11/27/24 05:24 Labs: Abnormal Lab Results - Last 24 Hours (Table) 11/26/24 11/26/24 11/26/24 Range/Units 01:01 07:13 07:13 WBC (4.50-10.00) X 10*3/uL RBC (4.40-5.60) X 10*6/uL Hgb (13.0-17.0) g/dL Hct (39.6-50.0) % MCHC (32.0-37.0) g/dL Immature Gran # (0.00-0.04) X 10*3/uL Neutrophils # (1.80-7.70) X 10*3/uL Monocytes # (0.20-1.00) X 10*3/uL Eosinophils # (0.04-0.35) X 10*3/uL Retic Count 3.29 H (0.10-1.80) % Sodium (135-145) mmol/L Glucose (70-110) mg/dL Calcium (8.7-10.3) mg/dL Iron 26 L (65-175) UG/DL % Saturation 7.83 L (15.00-50.00) C-Reactive Protein 1.5 H (<1.0) mg/dL 11/27/24 11/27/24 Range/Units 05:24 05:24 WBC 11.74 H (4.50-10.00) X 10*3/uL RBC 3.81 L (4.40-5.60) X 10*6/uL Hgb 11.2 L (13.0-17.0) g/dL Hct 35.8 L (39.6-50.0) % MCHC 31.3 L (32.0-37.0) g/dL Immature Gran # 0.07 H (0.00-0.04) X 10*3/uL Neutrophils # 8.09 H (1.80-7.70) X 10*3/uL Monocytes # 1.25 H (0.20-1.00) X 10*3/uL Eosinophils # 0.98 H (0.04-0.35) X 10*3/uL Retic Count (0.10-1.80) % Sodium 134 L (135-145) mmol/L Glucose 123 H (70-110) mg/dL Calcium 8.0 L (8.7-10.3) mg/dL Iron (65-175) UG/DL % Saturation (15.00-50.00) C-Reactive Protein (<1.0) mg/dL
--- NOTE | 2024-11-27 13:43 | P.PN ---
Subjective Progress Note Date: 11/27/24 Patient is a 84 year old male with CAD, COPD, AR, former heavy smoker presented to the ED with shortness of breath and chest pain. Patient reports his shortness of breath started yesterday night when he was resting. He states having midsternal chest pain with deep breaths, no radiation of pain. Associated with that he experienced cough for two weeks, with dark blackish sputum production initially, but it is clear now. He denies fever, chills, trauma. Denies any travel history. He uses oxygen intermittently at home, usually at night, at 2L. He mentions having a heart catheterization in the past but denies any stents placed. Denies history of CHF. He reports getting short of breath when walking to and from the restroom at home, but states that its at baseline. He uses a walker at home to ambulate. He quit smoking 13 years ago. Patient recently 11/13/24 underwent insertion of dual-chamber permanent pacemaker for sick sinus syndrome, symptomatic bradycardia with need for beta-td for VT and cardiomyopathy. Denies fever, chills, palpitations, abdominal pain, nausea, vomiting, hematuria, dysuria, hematochezia, melena, headache, slurred speech, numbness, tingling, dizziness, lightheadedness, blurred vision, double vision. ED documentation reviewed. In the ED patient was treated with DuoNeb, ketorolac, lorazepam, Rocephin, 0.9 normal saline, Zithromax. 11/27/2024patient seen and examined at bedside. No events overnight. No complaints of shortness of breath or chest pain this morning. Review of systems: Pertinent positives and negatives as discussed in HPI, a complete review of s ystems was performed and all other systems are negative. Physical examination: Vital signs reviewed General: nontoxic, no distress, appears at stated age Derm: warm, dry, intact Cardiovascular: S1 S2 reg, no murmur Lungs: CTA bilateral, no rhonchi, no rales, no accessory muscle use Abdominal: soft, non-tender to palpation Extremities: No cyanosis, clubbing, or pedal edema. Neuro: Alert, Oriented, Gross neurological examination did not reveal any focal deficits. Today's pertinent labs: Labs WBC 11.7, hemoglobin 11.2, sodium 134, glucose 123 Chest x-ray with findings of diffuse bilateral interstitial opacities, more focal left basilar opacity, and small bilateral pleural effusions persist Echocardiogram findings of mild to moderate pericardial effusion, mildly e nlarged left ventricle with globally decreased contractility, mild to moderate aortic insufficiency. LVEF estimated 40%. Assessment/Plan: Patient is a 84 year old male with CAD, COPD, AR presented to the ED with shortness of breath and chest pain #. Community acquired pneumonia #. Leukocytosis, likely secondary to above #. Chronic hypoxic respiratory failure #. COPD (on home oxygen 2L PRN) Chest x-ray shows bibasilar subsegmental changes, left greater than right are presumed asymmetric edema, coexisting infection is difficult to exclude in this region, no large pleural effusion or pneumothorax Received 1 dose of azithromycin and Rocephin in the ED Continue azithromycin 500 mg IVPB for total of 3 days, Rocephin 2 g IVPB every 24 hours for total of 5 days Continue nebulized albuterol, DuoNeb Continue supplemental oxygen as needed Obtain blood culture, sputum culture pending. Legionella antigen negative #. Atypical chest pain #. CAD S/p cardiac catheterization #History of sick sinus syndrome status post PPM 11/13/2024 #Pericardial effusion, without tamponade troponin I <0.012 Continue home meds Aspirin, statin, discontinue Plavix Continue telemetry monitoring Echocardiogram with mild to moderate pericardial effusion, globally decreased contractility, LVEF 40% Begin colchicine 0.6 mg twice daily Cardiology consulted CT surgery consulted #. Normocytic anemia Obtain iron studies iron saturation 7.83%, LDH 271, retic count 3.2%. vit B12, folate pending Monitor CBC Transfuse for Hb<7 #. Mild hyponatremia Monitor BMP IVF hydration with normal saline 75 cc per hour Chronic: #. Sick sinus syndrome S/p dual chamber permanent pacemaker implantation 11/13/24 #. AR not on CPAP, cannot tolerate #. History of TIA #. Anxiety/depression #. Restless leg syndrome Resume home meds once verified by the pharmacy F: None E: Replete as required N: Heart healthy diet A: Bedrest DVT prophylaxis: Lovenox 40 mg SQ daily CODE STATUS: FULL CODE Discussed with: Patient Anticipated discharge place: Pending clinical course Joe Hare MD Internal Medicine Resident, PGY1 Dictation was produced using [employer] dictation software. please excuse any grammatical, word or spelling errors. I have seen and evaluated the patient today. Discussed with the resident and agree with the residents finding and plan as documented in the resident's note. Changes highlighted in blue font. Objective - Vital Signs Vital signs: Vital Signs Temp 97.6 F 11/27/24 06:05 Pulse 76 11/27/24 06:05 Resp 16 11/27/24 06:05 BP 101/64 11/27/24 06:05 Pulse Ox 95 11/27/24 06:05 FiO2 Intake & Output 11/26/24 11/27/24 11/27/24 18:59 06:59 18:59 Weight 102.058 kg Other: Voiding Method Toilet Urinal # Voids 2 - Labs CBC & Chem 7: 11/27/24 05:24 11/27/24 05:24 Labs: Abnormal Lab Results - Last 24 Hours (Table) 11/26/24 11/26/24 11/26/24 Range/Units 01:01 07:13 07:13 WBC 12.17 H (4.50-10.00) 10*3/uL RBC 3.84 L (4.40-5.60) 10*6/uL Hgb 11.4 L (13.0-17.0) g/dL Hct 36.1 L (39.6-50.0) % MCHC 31.6 L (32.0-37.0) g/dL MPV 9.4 L (9.5-12.2) fL Retic Count (0.10-1.80) % Glucose 140 H (74-99) mg/dL Iron (65-175) UG/DL % Saturation (15.00-50.00) Lactate Dehydrogenase (120-246) U/L C-Reactive Protein 1.5 H (<1.0) mg/dL 11/26/24 11/26/24 Range/Units 07:13 07:13 WBC (4.50-10.00) 10*3/uL RBC (4.40-5.60) 10*6/uL Hgb (13.0-17.0) g/dL Hct (39.6-50.0) % MCHC (32.0-37.0) g/dL MPV (9.5-12.2) fL Retic Count 3.29 H (0.10-1.80) % Glucose (74-99) mg/dL Iron 26 L (65-175) UG/DL % Saturation 7.83 L (15.00-50.00) Lactate Dehydrogenase 271 H (120-246) U/L C-Reactive Protein (<1.0) mg/dL
--- NOTE | 2024-11-27 15:38 | P.GSCN ---
History of Present Illness Consult date: 11/27/24 Reason for Consult: Mild to moderate pericardial effusion Requesting physician: Basilia Kwok History of present illness: This is an 84-year-old gentleman who follows on an outpatient basis with Dr. Mitchell Jessica for his primary care and with Dr. Henson for his cardiology care. He has a past medical history significant for sick sinus syndrome, symptomatic bradycardia, status post insertion of dual-chamber permanent pacemaker on November 13, [address] Henson, history of nonsustained ventricular tachycardia, nonischemic cardiomyopathy, hyperlipidemia, TIA on Plavix as an outpatient, COPD with chronic hypoxic respiratory failure, on home oxygen using 2 L nasal cannula at night, depression, coronary artery disease, obesity with a BMI of 31.4 kg/m, obstructive sleep apnea without home CPAP use, history of b ladder cancer, and remote history of nicotine dependence, quit smoking around 13 years ago. The patient presented to the emergency department here at [facility] via EMS on November 26, 2024 with complaints of chest pain with inspiration, and some complaints of mild shortness of breath, although he reports that his shortness of breath is chronic in nature. He denies any recent fever, chills, nausea, vomiting, diarrhea, constipation, headache, cough, presyncope or syncope. Initial laboratory results showed a WBC count of 14.08, hemoglobin 12.6, hematocrit 38.1, PT 11.7, INR 1.1, PTT 26.5, sodium 135, potassium 4.4, chloride 101, CO2 25, BUN 9, creatinine 16, glucose 122, hemogl obin A1c 5.9, plasmic lactic acid 1.3, calcium 9.2, magnesium 1.8, proBNP 380 and serial troponins were less than 0.012. A twelve-lead EKG was completed which showed sinus rhythm with occasional ventricular premature complexes with heart rate of 85 bpm. Subsequently, for further evaluation a chest x-ray was completed which the impression showed bibasilar segmental changes, left greater than right, presumed asymmetric edema, coexisting infection is difficult to exclude, no large pleural effusion or pneumothorax. Due to the patient's recent history of permanent pacemaker placement a transthoracic 2D echocardiogram was completed which revealed a mild to moderate pericardial effusion without tamponade. Due to the findings of a mild to moderate pericardial effusion a consult was placed to Dr. Anusha Lewis from cardiothoracic surgery for further evaluation and treatment recommendations. Review of Systems A review of systems was completed and was negative except as mentioned in the HPI. Past Medical History Past Medical History: Coronary Artery Disease (CAD), Cancer, Chest Pain / Angina, COPD, CVA/TIA, Hyperlipidemia, Osteoarthritis (OA), Respiratory Disorder, Sleep Apnea/CPAP/BIPAP, Syncope Additional Past Medical History / Comment(s): bladder cancer no chemo or radiation. TIA- old per testing- no residuals. recent URI infection getting better used 02 concentrator a little more. watching aorta per . BP runs low. cannot tolerate CPAP. 02 concentrator at night 2liters and as needed. Dual Pacemaker 11/26 History of Any Multi-Drug Resistant Organisms: None Reported Past Surgical History: Heart Catheterization, Hernia Repair, Pacemaker (November 13, 2024) Additional Past Surgical History / Comment(s): abdominal wall hernia. loop recorder, steph inguinal hernia. Past Anesthesia/Blood Transfusion Reactions: No Reported Reaction Additional Past Anesthesia/Blood Transfusion Reaction / Comm: BP drops Past Psychological History: Depression Smoking Status: Former smoker Past Alcohol Use History: None Reported Additional Past Alcohol Use History / Comment(s): over 12 yrs ago quit smoking, 2ppd Past Drug Use History: None Reported - Past Family History Mother Family Medical History: Congestive Heart Failure (CHF), COPD Father Family Medical History: Cancer (Leukemia) Medications and Allergies Home Medications Medication Instructions Recorded Confirmed Type Aspirin 81 mg PO DAILY 02/21/17 11/26/24 History Nitroglycerin Sl Tabs [Nitrostat] 0.4 mg SUBLINGUAL Q5M PRN 02/21/17 11/26/24 History Clopidogrel [Plavix] 75 mg PO DAILY #30 tab 02/23/17 11/26/24 Rx Atorvastatin [Lipitor] 20 mg PO HS 04/28/24 11/26/24 History Fluticasone/Umeclidin/Vilanter 1 puff INHALATION RT-DAILY 04/28/24 11/26/24 History [Trelegy Ellipta 200-62.5-25] Sertraline [Zoloft] 50 mg PO HS 04/28/24 11/26/24 History rOPINIRole HCL [Requip] 1 mg PO HS 04/28/24 11/26/24 History Acetaminophen Tab [Tylenol Tab] 500 mg PO Q6H PRN 11/10/24 11/26/24 History Albuterol Inhaler [Ventolin Hfa 2 puff INHALATION RT-Q4H PRN 11/10/24 11/26/24 History Inhaler] Ibuprofen [Advil] 200 mg PO Q6H PRN 11/10/24 11/26/24 History Allergies Allergy/AdvReac Type Severity Reaction Status Date / Time tape AdvReac blisters Uncoded 11/10/24 11:20 Surgical - Exam Vital Signs Temp Pulse Resp BP Pulse Ox 98.6 F 84 18 101/67 94 L 11/26/24 00:52 11/26/24 00:52 11/26/24 00:52 11/26/24 00:52 11/26/24 00:52 - General well developed, well nourished, no distress, no pain, chronically ill, obese - Eyes PERRL, normal ocular movement, no pale, no icteric - ENT normal pinna, normal nares, normal mucosa, no hearing loss, no congestion, dentu res - Neck no masses, no bruits, trachea midline, no venous distension - Respiratory Lung sounds essentially clear throughout, diminished left lower lobe, no wheezes, rhonchi or crackles. Respirations symmetrical and nonlabored. - Cardiovascular Regular rhythm and rate. S1 and S2 present, negative for S3, gallop or murmur. - Abdomen Abdomen is soft, nontender and nondistended. Active bowel sounds present all 4 abdominal quadrants. No guarding or rigidity. - Genitourinary Deferred - Rectum Deferred - Integumentary Skin is warm and dry. No clubbing or cyanosis is present. no rash, no growths, no abnormal pigmentation - Neurologic No focal deficits. - Musculoskeletal Moves all 4 extremities with equal strength bilateral. - Psychiatric oriented to time, oriented to person, oriented to place, speech is normal, memory intact Results - Labs 11/27/24 05:24 11/27/24 05:24 Abnormal Lab Results - Last 24 Hours (Table) 11/27/24 11/27/24 Range/Units 05:24 05:24 WBC 11.74 H (4.50-10.00) X 10*3/uL RBC 3.81 L (4.40-5.60) X 10*6/uL Hgb 11.2 L (13.0-17.0) g/dL Hct 35.8 L (39.6-50.0) % MCHC 31.3 L (32.0-37.0) g/dL Immature Gran # 0.07 H (0.00-0.04) X 10*3/uL Neutrophils # 8.09 H (1.80-7.70) X 10*3/uL Monocytes # 1.25 H (0.20-1.00) X 10*3/uL Eosinophils # 0.98 H (0.04-0.35) X 10*3/uL Sodium 134 L (135-145) mmol/L Glucose 123 H (70-110) mg/dL Calcium 8.0 L (8.7-10.3) mg/dL Microbiology - Last 24 Hours (Table) 11/26/24 04:14 Blood Culture - Preliminary Blood Diabetes panel 11/27/24 Range/Units 05:24 Sodium 134 L (135-145) mmol/L Potassium 4.7 (3.5-5.5) mmol/L Chloride 102 (96-109) mmol/L Carbon Dioxide 22.5 (21.6-31.8) mmol/L BUN 21.9 (9.0-27.0) mg/dL Creatinine 1.2 (0.6-1.5) mg/dL Glucose 123 H (70-110) mg/dL Calcium 8.0 L (8.7-10.3) mg/dL Calcium panel 11/27/24 Range/Units 05:24 Calcium 8.0 L (8.7-10.3) mg/dL Pituitary panel 11/27/24 Range/Units 05:24 Sodium 134 L (135-145) mmol/L Potassium 4.7 (3.5-5.5) mmol/L Chloride 102 (96-109) mmol/L Carbon Dioxide 22.5 (21.6-31.8) mmol/L BUN 21.9 (9.0-27.0) mg/dL Creatinine 1.2 (0.6-1.5) mg/dL Glucose 123 H (70-110) mg/dL Calcium 8.0 L (8.7-10.3) mg/dL Adrenal panel 11/27/24 Range/Units 05:24 Sodium 134 L (135-145) mmol/L Potassium 4.7 (3.5-5.5) mmol/L Chloride 102 (96-109) mmol/L Carbon Dioxide 22.5 (21.6-31.8) mmol/L BUN 21.9 (9.0-27.0) mg/dL Creatinine 1.2 (0.6-1.5) mg/dL Glucose 123 H (70-110) mg/dL Calcium 8.0 L (8.7-10.3) mg/dL - Imaging Chest x-ray: report reviewed, image reviewed EKG: image reviewed Additional studies: Transthoracic 2D echocardiogram films reviewed by Dr. Anusha Lewis and discussed with Dr. Cottrell from cardiology. Assessment and Plan Assessment: Mild to moderate pericardial effusion without tamponade per transthoracic 2D ech ocardiogram Substernal chest pain, possibly secondary to above Left lower lobe pneumonia with evidence of leukocytosis Nonischemic cardiomyopathy Recent history of sick sinus syndrome, bradycardia, status post permanent pacemaker placement by Dr. Henson on November 13, 2024 History of nonsustained ventricular tachycardia History of TIA on Plavix as an outpatient COPD on 2 L nasal cannula at home in the evenings Chronic hypoxic respiratory failure, on home oxygen 2 L nasal cannula in the evenings History of bladder cancer Obesity with a BMI of 31.4 kg/m Remote history of nicotine dependence, quit smoking 13 years ago Depression Plan: The patient was seen and examined at his bedside on the 6 floor cardiac observation unit. His chart and diagnostics were reviewed with by Dr. Anusha Lewis. Dr. Lewis reviewed the results and films of the transthoracic 2D echocardiogram. Currently the patient is clinically stable, and is no on hemodynamic or pressor support. He denies any further complaints of chest pain at this time. Continue to monitor the patient clinically, and if the patient should become more symptomatic would consider placement of pericardial drain. Medical management of other comorbidities per internal medicine, and cardiology services. Plavix has been discontinued by cardiology service. Colchicine 0.6 mg p.o. twice daily has been initiated by cardiology. More recommendations to follow based on patient's clinical course. Thank you Dr. Rosales for this consult and we look forward to working with you in the care of this patient. I have personally seen and examined the patient, performed the documentation and the assessment and plan as written. Number of minutes spent on the visit: 30. UMESH Vega
[2024-11-28 08:13] LABS: HCT 35.1 % (39.6-50.0); MCH 29.5 pg (27.0-32.0); MCHC 31.3 g/dL (32.0-37.0); MCV 94.1 FL (80.0-97.0); Mean Platelet Volume 10.2 FL (9.5-12.2); NRBC Per 100 WBC 0 X 10*3/uL (0.00-0.01); Platelet Count 225 X 10*3/uL (140-440); RBC 3.73 X 10*6/uL (4.40-5.60); RDW 14.6 % (11.5-14.5); WBC 14.73 X 10*3/uL (4.50-10.00)
[2024-11-28 08:29] LABS: Blood Urea Nitrogen 18.5 mg/dL (9.0-27.0); Calcium 7.9 mg/dL (8.7-10.3); Carbon Dioxide 20.6 mmol/L (21.6-31.8); Chloride 102 mmol/L (96-109); Glucose 139 mg/dL (70-110); Potassium 4.8 mmol/L (3.5-5.5); Sodium 133 mmol/L (135-145)
--- NOTE | 2024-11-28 08:29 | P.PN ---
Subjective Progress Note Date: 11/28/24 Principal diagnosis: Mild to moderate pericardial effusion. Past medical history significant for sick sinus syndrome, symptomatic bradycardia, status post insertion of dual-chamber permanent pacemaker on November 13, [address] Henson, history of nonsustained ventricular tachycardia, nonischemic cardiomyopathy, hyperlipidemia, TIA on Plavix as an outpatient, COPD with chronic hypoxic respiratory failure, on home oxygen using 2 L nasal cannula at night, depression, coronary artery disease, obesity with a BMI of 31.4 kg/m, obstructive sleep apnea without home CPAP use, history of bladder cancer, and remote history of nicotine dependence, quit smoking around 13 years ago. The patient was seen and examined in follow-up today November 28, 2024 at his bedside on the sixth floor cardiac observation unit. He is currently laying in bed, is awake, alert, oriented x 3 and is in no acute apparent distress. Denies any complaints of pain or shortness of breath at this time, although reports that he did have 1 episode of chest discomfort throughout the night. Oxygen saturations are 96% on 3 L nasal cannula. Laboratory results this morning were reviewed, his WBC count is 14.73 today. He remains on azithromycin and Rocephin for IV antibiotic coverage. His Plavix remains on hold. He remains hemodynamically stable and is currently on no inotropic or pressor support. Objective - Vital Signs Vital signs: Vital Signs Temp 98.6 F 11/28/24 07:04 Pulse 72 11/28/24 07:04 Resp 18 11/28/24 07:04 BP 111/73 11/28/24 07:04 Pulse Ox 96 11/28/24 07:04 FiO2 Intake & Output 11/27/24 11/28/24 11/28/24 18:59 06:59 18:59 Intake Total 118 750 Output Total 350 300 Balance -232 450 Intake: Oral 118 750 Output: Urine 350 300 Other: Voiding Method Urinal Urinal # Voids 1 5 - Exam CONSTITUTIONAL: Appears comfortable, cooperative, no acute distress RESPIRATORY: Lungs sounds diminished bilaterally. Respirations symmetrical, nonlabored. Currently on 3 L nasal cannula with oxygen saturation 96%. Strong cough. CARDIOVASCULAR: S1, S2 present. Regular rate and rhythm, sinus rhythm on telemetry. Palpable peripheral pulses bilaterally. No edema present. No calf pain or tenderness noted. GASTROINTESTINAL: Abdomen soft, nontender, nondistended. Active bowel sounds present 4 quadrants. Tolerating diet. Positive bowel movement. GENITOURINARY: Continues to void. 300 mL of urine output in the last 8 hours. INTEGUMENTARY: Skin is warm and dry with evidence of good perfusion. NEUROLOGIC: Cranial nerves II through XII intact. MUSKULOSKELETAL: Able to move all extremities, strength equal bilaterally, gait normal. PSYCHIATRIC: Alert and oriented to person place and time, appropriate affect, intact judgment and insight - Allied health notes Allied health notes reviewed: nursing - Labs CBC & Chem 7: 11/28/24 02:36 11/27/24 05:24 Labs: Abnormal Lab Results - Last 24 Hours (Table) 11/27/24 11/27/24 11/28/24 Range/Units 05:24 05:24 02:36 WBC 11.74 H 14.73 H (4.50-10.00) X 10*3/uL RBC 3.81 L 3.73 L (4.40-5.60) X 10*6/uL Hgb 11.2 L 11.0 L (13.0-17.0) g/dL Hct 35.8 L 35.1 L (39.6-50.0) % MCHC 31.3 L 31.3 L (32.0-37.0) g/dL RDW 14.6 H (11.5-14.5) % Immature Gran # 0.07 H (0.00-0.04) X 10*3/uL Neutrophils # 8.09 H (1.80-7.70) X 10*3/uL Monocytes # 1.25 H (0.20-1.00) X 10*3/uL Eosinophils # 0.98 H (0.04-0.35) X 10*3/uL Sodium 134 L (135-145) mmol/L Glucose 123 H (70-110) mg/dL Calcium 8.0 L (8.7-10.3) mg/dL Microbiology - Last 24 Hours (Table) 11/26/24 04:14 Blood Culture - Preliminary Blood Assessment and Plan Assessment: Mild to moderate pericardial effusion without tamponade per transthoracic 2D echocardiogram Substernal chest pain, possibly secondary to above Left lower lobe pneumonia with evidence of leukocytosis Nonischemic cardiomyopathy Recent history of sick sinus syndrome, bradycardia, status post permanent pacemaker placement by Dr. Henson on November 13, 2024 History of nonsustained ventricular tachycardia History of TIA on Plavix as an outpatient COPD on 2 L nasal cannula at home in the evenings Chronic hypoxic respiratory failure, on home oxygen 2 L nasal cannula in the evenings History of bladder cancer Obesity with a BMI of 31.4 kg/m Remote history of nicotine dependence, quit smoking 13 years ago Depression Plan: Incentive spirometry has been ordered, encourage use of incentive spirometry 10 times every hour while awake. Continue to monitor the patient clinically, and if the patient should become more symptomatic would consider placement of pericardial drain. Medical management of other comorbidities per internal medicine and cardiology service. More recommendations to follow based on patient's clinical course. Time with Patient: Less than 30
--- NOTE | 2024-11-28 10:19 | P.PN ---
Subjective HISTORY OF PRESENTING ILLNESS: Patient is known to Dr. Henson. History of hypertension aortic insufficiency, nonischemic cardiomyopathy with recovered EF, TIA COPD, previous tobacco smoker, nonsustained VT. Patient has been dealing with few instances of questionable syncope and passing out spells since January 2024. For this he had a loop rec order placed in April 2024. In October 2024 patient had aneurysm couple episode while sitting in the chair, loop recorder recorded a heart rate of 30 to 40 bpm. There was no reversible causes of bradycardia and for this he got a PPM placed 11/13/2024. This time he presented to the hospital because of substernal chest pressure and pain which gets worse with taking deep breath and coughing. This has been going on for last 2 to 3 days. He is also having difficulty in taking deep breaths because of it. Admission BP 101/76, heart rate 84, EKG shows sinus rhythm with intermittent PVCs. Hemoglobin 11, BUN 16, creatinine 1 troponin negative, NT-proBNP 380 11/27/2024 Patient seen and examined resting comfortably in bed in no acute distress. He continues to have some pleuritic type chest discomfort. Limited echocardiogram reveals a moderate-sized pericardial effusion, no tamponade, ejection fraction 40%. Blood pressure 101/64 heart rate 76 afebrile maintaining oxygen saturation on nasal cannula. Laboratory data reviewed, WBC 11.7, hemoglobin 11.2, platelets 242, sodium 134, potassium 4.7, creatinine 1.2, ESR 7, CRP 1.5. 11/28/2024 Pt seen and examined sitting up attempting to eat breakfast. He endorses feelings short of breath, hot and no appetite. The nurse indicates he did requi re oxygen via nasal cannula late last night. CT surgery is also following and encouraging incentive spirometer. BP 111/73 heart rate 72 afebrile maintaining oxygen saturation on nasal cannula. Laboratory data reviewed, WBC 14.7, hemoglobin 11, platelets 225, sodium 133, potassium 4.8, creatinine 1. He continues to be maintained on IV antibiotics for pneumonia. PHYSICAL EXAMINATION: Neck: Brisk carotid upstroke, 1 cm of jugular venous distention. Lungs: Clear to auscultation. Heart: Regular rate and rhythm, S1-S2, , no murmur or rub. Abdomen: Soft nontender, positive bowel sounds. Extremities: No edema, intact distal pulses. Neuro: Alert, oritented, no focal deficits. Detailed neuro exam was not performed. ASSESSMENT: Pericardial effusion Substernal chest pain, pleuritic in nature Left lower lobe pneumonia with evidence of leukocytosis. When compared to CXR from 11/13/2024, appears slightly better. History of sick sinus syndrome status post PPM 11/13/2024 Prior history of TIA Prior history of cardiomyopathy with recovered LVEF PLAN: Continue colchicine BID. Repeat echo to assess effusion tomorrow AM. Discussed plan in detail with nurse at the bedside. If breathing becomes labored she will contact CT surgery immediately. Further recommendations to follow based upon clinical course. Nurse Practitioner note has been reviewed, I agree with a documented findings and plan of care. Patient was seen and examined. Objective - Vital Signs Vital signs: Vital Signs Temp 98.6 F 11/28/24 07:04 Pulse 72 11/28/24 07:04 Resp 18 11/28/24 07:04 BP 111/73 11/28/24 07:04 Pulse Ox 96 11/28/24 07:04 FiO2 Intake & Output 11/27/24 11/28/24 11/28/24 18:59 06:59 18:59 Intake Total 118 750 Output Total 350 300 Balance -232 450 Intake: Oral 118 750 Output: Urine 350 300 Other: Voiding Method Urinal Urinal # Voids 1 5 - Labs CBC & Chem 7: 11/28/24 02:36 11/28/24 02:36 Labs: Abnormal Lab Results - Last 24 Hours (Table) 11/27/24 11/27/24 11/28/24 Range/Units 05:24 05:24 02:36 WBC 11.74 H 14.73 H (4.50-10.00) X 10*3/uL RBC 3.81 L 3.73 L (4.40-5.60) X 10*6/uL Hgb 11.2 L 11.0 L (13.0-17.0) g/dL Hct 35.8 L 35.1 L (39.6-50.0) % MCHC 31.3 L 31.3 L (32.0-37.0) g/dL RDW 14.6 H (11.5-14.5) % Immature Gran # 0.07 H (0.00-0.04) X 10*3/uL Neutrophils # 8.09 H (1.80-7.70) X 10*3/uL Monocytes # 1.25 H (0.20-1.00) X 10*3/uL Eosinophils # 0.98 H (0.04-0.35) X 10*3/uL Sodium 134 L (135-145) mmol/L Carbon Dioxide (21.6-31.8) mmol/L Glucose 123 H (70-110) mg/dL Calcium 8.0 L (8.7-10.3) mg/dL 11/28/24 Range/Units 02:36 WBC (4.50-10.00) X 10*3/uL RBC (4.40-5.60) X 10*6/uL Hgb (13.0-17.0) g/dL Hct (39.6-50.0) % MCHC (32.0-37.0) g/dL RDW (11.5-14.5) % Immature Gran # (0.00-0.04) X 10*3/uL Neutrophils # (1.80-7.70) X 10*3/uL Monocytes # (0.20-1.00) X 10*3/uL Eosinophils # (0.04-0.35) X 10*3/uL Sodium 133 L (135-145) mmol/L Carbon Dioxide 20.6 L (21.6-31.8) mmol/L Glucose 139 H (70-110) mg/dL Calcium 7.9 L (8.7-10.3) mg/dL Microbiology - Last 24 Hours (Table) 11/26/24 04:14 Blood Culture - Preliminary Blood
--- NOTE | 2024-11-28 11:43 | P.PN ---
Subjective Progress Note Date: 11/28/24 Patient is a 84 year old male with CAD, COPD, AR, former heavy smoker presented to the ED with shortness of breath and chest pain. Patient reports his shortness of breath started yesterday night when he was resting. He states having midsternal chest pain with deep breaths, no radiation of pain. Associated with that he experienced cough for two weeks, with dark blackish sputum production initially, but it is clear now. He denies fever, chills, trauma. Denies any travel history. He uses oxygen intermittently at home, usually at night, at 2L. He mentions having a heart catheterization in the past but denies any stents placed. Denies history of CHF. He reports getting short of breath when walking to and from the restroom at home, but states that its at baseline. He uses a walker at home to ambulate. He quit smoking 13 years ago. Patient recently 11/13/24 underwent insertion of dual-chamber permanent pacemaker for sick sinus syndrome, symptomatic bradycardia with need for beta-td for VT and cardiomyopathy. Denies fever, chills, palpitations, abdominal pain, nausea, vomiting, hematuria, dysuria, hematochezia, melena, headache, slurred speech, numbness, tingling, dizziness, lightheadedness, blurred vision, double vision. ED documentation reviewed. In the ED patient was treated with DuoNeb, ketorolac, lorazepam, Rocephin, 0.9 normal saline, Zithromax. 11/27/2024patient seen and examined at bedside. No events overnight. No complaints of shortness of breath or chest pain this morning. 11/28/2024patient seen and examined at bedside. No events overnight. No new complaints. Continue to wean oxygen as tolerated, currently on 3 L nasal cannula saturating at 96% Review of systems: Pertinent positives and negatives as discussed in HPI, a complete review of systems was performed and all other systems are negative. Physical examination: Vital signs reviewed General: nontoxic, no distress, appears at stated age Derm: warm, dry, intact Cardiovascular: S1 S2 reg, no murmur Lungs: CTA bilateral, no rhonchi, no rales, no accessory muscle use Abdominal: soft, non-tender to palpation Extremities: No cyanosis, clubbing, or pedal edema. Neuro: Alert, Oriented, Gross neurological examination did not reveal any focal deficits. Today's pertinent labs: LabsWBC 14.7, hemoglobin 11.0, sodium 133, potassium 4.8, bicarb 20.6, glucose 139 No new imaging Assessment/Plan: Patient is a 84 year old male with CAD, COPD, AR presented to the ED with shortness of breath and chest pain #. Community acquired pneumonia #. Leukocytosis, likely secondary to above #. Chronic hypoxic respiratory failure #. COPD (on home oxygen 2L PRN) Chest x-ray shows bibasilar subsegmental changes, left greater than right are presumed asymmetric edema, coexisting infection is difficult to exclude in this region, no large pleural effusion or pneumothorax Received 1 dose of azithromycin and Rocephin in the ED Continue azithromycin 500 mg IVPB for total of 3 days, Rocephin 2 g IVPB every 24 hours for total of 5 days Continue nebulized albuterol, DuoNeb Wean oxygen as tolerated Obtain blood culture, sputum culture pending. Legionella antigen negative #. Atypical chest pain #. CAD S/p cardiac catheterization #History of sick sinus syndrome status post PPM 11/13/2024 #Pericardial effusion, without tamponade troponin I <0.012 Continue home meds Aspirin, statin, discontinue Plavix Continue telemetry monitoring Echocardiogram with mild to moderate pericardial effusion, globally decreased contractility, LVEF 40% Continue colchicine 0.6 mg twice daily Cardiology following CT surgery following, note reviewed, no further intervention at this time #. Normocytic anemia Obtain iron studies iron saturation 7.83%, LDH 271, retic count 3.2%. vit B12, folate pending Monitor CBC Transfuse for Hb<7 #. Mild hyponatremia Monitor BMP Discontinue IV fluid Chronic: #. Sick sinus syndrome S/p dual chamber permanent pacemaker implantation 11/13/24 #. AR not on CPAP, cannot tolerate #. History of TIA #. Anxiety/depression #. Restless leg syndrome Resume home meds once verified by the pharmacy F: None E: Replete as required N: Heart healthy diet A: Bedrest DVT prophylaxis: Lovenox 40 mg SQ daily CODE STATUS: FULL CODE Discussed with: Patient Anticipated discharge place: Home, 1 to 2 days Joe Hare MD Internal Medicine Resident, PGY1 Dictation was produced using [employer] dictation software. please excuse any grammatical, word or spelling errors. I have seen and evaluated the patient today. Discussed with the resident and agree with the residents finding and plan as documented in the resident's note. Changes highlighted in blue font. Objective - Vital Signs Vital signs: Vital Signs Temp 98.6 F 11/28/24 07:04 Pulse 72 11/28/24 07:04 Resp 18 11/28/24 07:04 BP 111/73 11/28/24 07:04 Pulse Ox 96 11/28/24 07:04 FiO2 Intake & Output 11/27/24 11/28/24 11/28/24 18:59 06:59 18:59 Intake Total 118 750 Output Total 350 300 Balance -232 450 Intake: Oral 118 750 Output: Urine 350 300 Other: Voiding Method Urinal Urinal # Voids 1 5 - Labs CBC & Chem 7: 11/28/24 02:36 11/28/24 02:36 Labs: Abnormal Lab Results - Last 24 Hours (Table) 11/27/24 11/27/24 Range/Units 05:24 05:24 WBC 11.74 H (4.50-10.00) X 10*3/uL RBC 3.81 L (4.40-5.60) X 10*6/uL Hgb 11.2 L (13.0-17.0) g/dL Hct 35.8 L (39.6-50.0) % MCHC 31.3 L (32.0-37.0) g/dL Immature Gran # 0.07 H (0.00-0.04) X 10*3/uL Neutrophils # 8.09 H (1.80-7.70) X 10*3/uL Monocytes # 1.25 H (0.20-1.00) X 10*3/uL Eosinophils # 0.98 H (0.04-0.35) X 10*3/uL Sodium 134 L (135-145) mmol/L Glucose 123 H (70-110) mg/dL Calcium 8.0 L (8.7-10.3) mg/dL Microbiology - Last 24 Hours (Table) 11/26/24 04:14 Blood Culture - Preliminary Blood
[2024-11-28] MEDS: KETOROLAC 15 MG/ML 1 ML VIAL IVP PRN (12:50)
[2024-11-29 08:07] LABS: HCT 35.5 % (39.6-50.0); HGB 11.1 g/dL (13.0-17.0); MCH 29.3 pg (27.0-32.0); MCHC 31.3 g/dL (32.0-37.0); MCV 93.7 FL (80.0-97.0); Mean Platelet Volume 10.6 FL (9.5-12.2); NRBC Per 100 WBC 0 X 10*3/uL (0.00-0.01); Platelet Count 229 X 10*3/uL (140-440); RBC 3.79 X 10*6/uL (4.40-5.60); RDW 14.5 % (11.5-14.5); WBC 12.58 X 10*3/uL (4.50-10.00)
[2024-11-29 08:33] LABS: BUN/Creat Ratio 23.18 Ratio (12.00-20.00); Blood Urea Nitrogen 25.5 mg/dL (9.0-27.0); Calcium 8.2 mg/dL (8.7-10.3); Carbon Dioxide 21.8 mmol/L (21.6-31.8); Chloride 101 mmol/L (96-109); Glucose 121 mg/dL (70-110); Potassium 4.9 mmol/L (3.5-5.5); Sodium 133 mmol/L (135-145)
--- NOTE | 2024-11-29 10:01 | P.PN ---
Subjective Progress Note Date: 11/29/24 Principal diagnosis: Mild to moderate pericardial effusion. Past medical history significant for sick sinus syndrome, symptomatic bradycardia, status post insertion of dual-chamber permanent pacemaker on November 13, [address] Henson, history of nonsustained ventricular tachycardia, nonischemic cardiomyopathy, hyperlipidemia, TIA on Plavix as an outpatient, COPD with chronic hypoxic respiratory failure, on home oxygen using 2 L nasal cannula at night, depression, coronary artery disease, obesity with a BMI of 31.4 kg/m, obstructive sleep apnea without home CPAP use, history of bladder cancer, and remote history of nicotine dependence, quit smoking around 13 years ago. The patient was seen and examined in follow-up today November 29, 2024 at his bedside on the sixth floor cardiac observation unit. He is currently sitting up to the bedside chair, is awake, alert, oriented x 3 and is in no acute apparent distress. Denies any complaints of pain or shortness of breath at this time. The patient states that he had an episode of chest discomfort last evening. Oxygen saturations are 96% on 3 L nasal cannula, he is achieving 1250 mL on his incentive spirometry with encouragement. Laboratory results this morning were reviewed, his WBC count is 12.58 today. He remains on Rocephin for IV antibiotic coverage. His Plavix remains on hold. He remains hemodynamically stable and is currently on no inotropic or pressor support. The patient also remains on Colchicine 0.6 mg PO BID managed by cardiology. Objective - Vital Signs Vital signs: Vital Signs Temp 98.2 F 11/29/24 07:20 Pulse 81 11/29/24 07:20 Resp 18 11/29/24 07:20 BP 105/68 11/29/24 07:20 Pulse Ox 96 11/29/24 07:20 FiO2 Intake & Output 11/28/24 11/29/24 11/29/24 18:59 06:59 18:59 Intake Total 118 Output Total 300 Balance 118 -300 Intake: Oral 118 Output: Urine 300 Other: Voiding Method Toilet Urinal # Voids 2 2 # Bowel Movements 1 - Exam CONSTITUTIONAL: Appears comfortable, cooperative, no acute distress RESPIRATORY: Lungs sounds diminished bilaterally. Respirations symmetrical, nonlabored. Currently on 3 L nasal cannula with oxygen saturation 96% achieving 1250 mL on incentive spirometry with encouragement. Strong cough. CARDIOVASCULAR: S1, S2 present. Regular rate and rhythm, sinus rhythm on telemetry. Palpable peripheral pulses bilaterally. No edema present. No calf pain or tenderness noted. GASTROINTESTINAL: Abdomen soft, nontender, nondistended. Active bowel sounds present 4 quadrants. Tolerating diet. Positive bowel movement. GENITOURINARY: Continues to void. INTEGUMENTARY: Skin is warm and dry, with no clubbing or cyanosis present. NEUROLOGIC: Cranial nerves II through XII intact. MUSKULOSKELETAL: Able to move all extremities, strength equal bilaterally, gait normal. PSYCHIATRIC: Alert and oriented to person place and time, appropriate affect, intact judgment and insight - Allied health notes Allied health notes reviewed: nursing - Labs CBC & Chem 7: 11/29/24 04:48 11/29/24 04:48 Labs: Abnormal Lab Results - Last 24 Hours (Table) 11/29/24 11/29/24 Range/Units 04:48 04:48 WBC 12.58 H (4.50-10.00) X 10*3/uL RBC 3.79 L (4.40-5.60) X 10*6/uL Hgb 11.1 L (13.0-17.0) g/dL Hct 35.5 L (39.6-50.0) % MCHC 31.3 L (32.0-37.0) g/dL Sodium 133 L (135-145) mmol/L BUN/Creatinine Ratio 23.18 H (12.00-20.00) Ratio Glucose 121 H (70-110) mg/dL Calcium 8.2 L (8.7-10.3) mg/dL Microbiology - Last 24 Hours (Table) 11/26/24 04:14 Blood Culture - Preliminary Blood Assessment and Plan Assessment: Mild to moderate pericardial effusion without tamponade per transthoracic 2D echocardiogram Substernal chest pain, possibly secondary to above Left lower lobe pneumonia with evidence of leukocytosis Nonischemic cardiomyopathy Recent history of sick sinus syndrome, bradycardia, status post permanent pacemaker placement by Dr. Henson on November 13, 2024 History of nonsustained ventricular tachycardia History of TIA on Plavix as an outpatient COPD on 2 L nasal cannula at home in the evenings Chronic hypoxic respiratory failure, on home oxygen 2 L nasal cannula in the evenings History of bladder cancer Obesity with a BMI of 31.4 kg/m Remote history of nicotine dependence, quit smoking 13 years ago Depression Plan: Incentive spirometry has been ordered, encourage use of incentive spirometry 10 times every hour while awake. Transthoracic 2D echocardiogram results remain pending from today. Continue to monitor the patient clinically, and if the patient should become more symptomatic would consider placement of pericardial drain. Medical management of other comorbidities per internal medicine and cardiology service. More recommendations to follow based on patient's clinical course. Time with Patient: Less than 30
--- NOTE | 2024-11-29 10:30 | CA ---
Transthoracic Echo Report Name: Stephan Becker Age: 84 Gender: M : 1940 Exam Date: 11/29/2024 09:40 Exam Location: [facility] Ht (in): 71 Wt (lb): 225 Ordering Physician: Basilia Kwok Attending/Referring Phys: [id number], Sundar Industrial [employer] Intern Manuela Coe, RD Procedure CPT: Indications: check effusion Cardiac Hx: Pacemaker Technical Quality: Fair Contrast 1: Total Dose (mL): Contrast 2: Total Dose (mL): MEASUREMENTS (Male / Female) Normal Values FINDINGS Left Ventricle Right Ventricle Right Atrium Left Atrium Mitral Valve Aortic Valve Tricuspid Valve Pulmonic Valve Pericardium Large pericardial effusion. Echocardiographic findings suggest a hemodynamically significant pericardial effusion. Right atrial diastolic collapse. Respiratory variation of tricuspid flow. Respiratory variation of mitral flow. There is evidence of some thrombus overlying the right ventricle near the apex Aorta CONCLUSIONS Large pericardial effusion with signs of tamponade. Notified cardiac surgery team-Kuldip glover for urgent pericardial window procedure Previewed by: Dr. Bob Rosales MD (Electronically Signed) Final Date: 29 November 2024 10:29
[2024-11-29] MEDS: SODIUM CHLORIDE 0.9% 1,000 ML IV SCH (10:36)
--- NOTE | 2024-11-29 11:51 | P.PN ---
Subjective HISTORY OF PRESENTING ILLNESS: Patient is known to Dr. Henson. History of hypertension aortic insufficiency, nonischemic cardiomyopathy with recovered EF, TIA COPD, previous tobacco smoker, nonsustained VT. Patient has been dealing with few instances of questionable syncope and passing out spells since January 2024. For this he had a loop rec order placed in April 2024. In October 2024 patient had aneurysm couple episode while sitting in the chair, loop recorder recorded a heart rate of 30 to 40 bpm. There was no reversible causes of bradycardia and for this he got a PPM placed 11/13/2024. This time he presented to the hospital because of substernal chest pressure and pain which gets worse with taking deep breath and coughing. This has been going on for last 2 to 3 days. He is also having difficulty in taking deep breaths because of it. Admission BP 101/76, heart rate 84, EKG shows sinus rhythm with intermittent PVCs. Hemoglobin 11, BUN 16, creatinine 1 troponin negative, NT-proBNP 380 11/27/2024 Patient seen and examined resting comfortably in bed in no acute distress. He continues to have some pleuritic type chest discomfort. Limited echocardiogram reveals a moderate-sized pericardial effusion, no tamponade, ejection fraction 40%. Blood pressure 101/64 heart rate 76 afebrile maintaining oxygen saturation on nasal cannula. Laboratory data reviewed, WBC 11.7, hemoglobin 11.2, platelets 242, sodium 134, potassium 4.7, creatinine 1.2, ESR 7, CRP 1.5. 11/28/2024 Pt seen and examined sitting up attempting to eat breakfast. He endorses feelings short of breath, hot and no appetite. The nurse indicates he did requi re oxygen via nasal cannula late last night. CT surgery is also following and encouraging incentive spirometer. BP 111/73 heart rate 72 afebrile maintaining oxygen saturation on nasal cannula. Laboratory data reviewed, WBC 14.7, hemoglobin 11, platelets 225, sodium 133, potassium 4.8, creatinine 1. He continues to be maintained on IV antibiotics for pneumonia. 11/29/2024 Patient seen and examined while undergoing limited echo. Echo reveals increasing pericardial effusion with evolving tamponade and overlying right ventricular thrombus. CT surgery was notified and patient is being transferred to the intensive care unit. Blood pressure 105/68 heart rate 81 afebrile maintaining oxygen saturation on nasal cannula. He continues to have shortness of breath. PHYSICAL EXAMINATION: Neck: Brisk carotid upstroke, 1 cm of jugular venous distention. Lungs: Clear to auscultation. Heart: Regular rate and rhythm, S1-S2, , no murmur or rub. Abdomen: Soft nontender, positive bowel sounds. Extremities: No edema, intact distal pulses. Neuro: Alert, oritented, no focal deficits. Detailed neuro exam was not performed. ASSESSMENT: Pericardial effusion Substernal chest pain, pleuritic in nature Left lower lobe pneumonia with evidence of leukocytosis. When compared to CXR from 11/13/2024, appears slightly better. History of sick sinus syndrome status post PPM 11/13/2024 Prior history of TIA Prior history of cardiomyopathy with recovered LVEF PLAN: Transfer patient to the intensive care unit. Notified CT surgery [employer] Don Carr that the patient will require a pericardial drain. Dr. Rosales spoke directly to him to facilitate this. Further recommendations to follow based upon clinical course. Nurse Practitioner note has been reviewed, I agree with a documented findings and plan of care. Patient was seen and examined. Objective - Vital Signs Vital signs: Vital Signs Temp 98.2 F 11/29/24 07:20 Pulse 81 11/29/24 07:20 Resp 18 11/29/24 07:20 BP 105/68 11/29/24 07:20 Pulse Ox 96 11/29/24 07:20 FiO2 Intake & Output 11/28/24 11/29/24 11/29/24 18:59 06:59 18:59 Intake Total 118 Output Total 300 Balance 118 -300 Intake: Oral 118 Output: Urine 300 Other: Voiding Method Toilet Urinal Urinal # Voids 2 2 # Bowel Movements 1 - Labs CBC & Chem 7: 11/29/24 04:48 11/29/24 04:48 Labs: Abnormal Lab Results - Last 24 Hours (Table) 11/29/24 11/29/24 Range/Units 04:48 04:48 WBC 12.58 H (4.50-10.00) X 10*3/uL RBC 3.79 L (4.40-5.60) X 10*6/uL Hgb 11.1 L (13.0-17.0) g/dL Hct 35.5 L (39.6-50.0) % MCHC 31.3 L (32.0-37.0) g/dL Sodium 133 L (135-145) mmol/L BUN/Creatinine Ratio 23.18 H (12.00-20.00) Ratio Glucose 121 H (70-110) mg/dL Calcium 8.2 L (8.7-10.3) mg/dL Microbiology - Last 24 Hours (Table) 11/26/24 04:14 Blood Culture - Preliminary Blood
[2024-11-29 12:20] LABS: Glucose,Whole Blood 108 mg/dL (70-110)
--- NOTE | 2024-11-29 15:28 | P.PN ---
Subjective Progress Note Date: 11/29/24 Patient is a 84 year old male with CAD, COPD, AR, former heavy smoker presented to the ED with shortness of breath and chest pain. Patient reports his shortness of breath started yesterday night when he was resting. He states having midsternal chest pain with deep breaths, no radiation of pain. Associated with that he experienced cough for two weeks, with dark blackish sputum production initially, but it is clear now. He denies fever, chills, trauma. Denies any travel history. He uses oxygen intermittently at home, usually at night, at 2L. He mentions having a heart catheterization in the past but denies any stents placed. Denies history of CHF. He reports getting short of breath when walking to and from the restroom at home, but states that its at baseline. He uses a walker at home to ambulate. He quit smoking 13 years ago. Patient recently 11/13/24 underwent insertion of dual-chamber permanent pacemaker for sick sinus syndrome, symptomatic bradycardia with need for beta-td for VT and cardiomyopathy. Denies fever, chills, palpitations, abdominal pain, nausea, vomiting, hematuria, dysuria, hematochezia, melena, headache, slurred speech, numbness, tingling, dizziness, lightheadedness, blurred vision, double vision. ED documentation reviewed. In the ED patient was treated with DuoNeb, ketorolac, lorazepam, Rocephin, 0.9 normal saline, Zithromax. 11/27/2024patient seen and examined at bedside. No events overnight. No complaints of shortness of breath or chest pain this morning. 11/28/2024patient seen and examined at bedside. No events overnight. No new complaints. Continue to wean oxygen as tolerated, currently on 3 L nasal cannula saturating at 96% 11/29/2024patient seen and examined at bedside. No events overnight. Some shortness of breath. Echocardiogram with increasing pericardial effusion evolving tamponade and overlying right ventricular thrombus, patient transferred to ICU. Review of systems: Pertinent positives and negatives as discussed in HPI, a complete review of systems was performed and all other systems are negative. Physical examination: Vital signs reviewed General: nontoxic, no distress, appears at stated age Derm: warm, dry, intact Cardiovascular: S1 S2 reg, no murmur Lungs: CTA bilateral, no rhonchi, no rales, no accessory muscle use Abdominal: soft, non-tender to palpation Extremities: No cyanosis, clubbing, or pedal edema. Neuro: Alert, Oriented, Gross neurological examination did not reveal any focal deficits. Today's pertinent findings: LabsWBC 12.5, hemoglobin 11.1, sodium 133, potassium 4.9 Echocardiogram reveals increasing pericardial effusion with evolving tamponade and overlying right ventricular thrombus. Blood culture no growth after 72 hours Assessment/Plan: Patient is a 84 year old male with CAD, COPD, AR presented to the ED with shortness of breath and chest pain #. Atypical chest pain #. CAD S/p cardiac catheterization #History of sick sinus syndrome status post PPM 11/13/2024 #Pericardial effusion, evolving tamponade Initial troponin I <0.012 Continue home meds Aspirin, statin, discontinue Plavix Continue telemetry monitoring Echocardiogram with mild to moderate pericardial effusion, globally decreased contractility, LVEF 40% Follow-up echocardiogram with increasing pericardial effusion evolving tamponade and overlying right ventricular thrombus, transferred to ICU Continue colchicine 0.6 mg twice daily Cardiology following CT surgery following, plan for pericardial window today #. Community acquired pneumonia #. Leukocytosis, likely secondary to above #. Chronic hypoxic respiratory failure #. COPD (on home oxygen 2L PRN) Chest x-ray shows bibasilar subsegmental changes, left greater than right are presumed asymmetric edema, coexisting infection is difficult to exclude in this region, no large pleural effusion or pneumothorax Received 1 dose of azithromycin and Rocephin in the ED Completed azithromycin 500 mg IVPB for total of 3 days, continue Rocephin 2 g IVPB every 24 hours for total of 5 days Continue nebulized albuterol, DuoNeb Wean oxygen as tolerated Obtain blood culture, sputum culture pending. Legionella antigen negative #. Normocytic anemia Obtain iron studies iron saturation 7.83%, LDH 271, retic count 3.2%. vit B12, folate pending Monitor CBC Transfuse for Hb<7 #. Mild hyponatremia Monitor BMP Discontinue IV fluid Chronic: #. Sick sinus syndrome S/p dual chamber permanent pacemaker implantation 11/13/24 #. AR not on CPAP, cannot tolerate #. History of TIA #. Anxiety/depression #. Restless leg syndrome Resume home meds once verified by the pharmacy F: None E: Replete as required N: Heart healthy diet A: Bedrest DVT prophylaxis: Lovenox 40 mg SQ daily CODE STATUS: FULL CODE Discussed with: Patient Anticipated discharge place: Pending clinical course Joe Hare MD Internal Medicine Resident, PGY1 Dictation was produced using [employer] dictation software. please excuse any grammatical, word or spelling errors. I have seen and evaluated the patient today. Discussed with the resident and agree with the residents finding and plan as documented in the resident's note. Changes highlighted in blue font. Objective - Vital Signs Vital signs: Vital Signs Temp 98.1 F 11/29/24 14:00 Pulse 78 11/29/24 15:00 Resp 22 11/29/24 15:00 BP 109/76 11/29/24 14:00 Pulse Ox 96 11/29/24 15:00 FiO2 Intake & Output 11/28/24 11/29/24 11/29/24 18:59 06:59 18:59 Intake Total 118 100 Output Total 300 Balance 118 -300 100 Intake: IV 100 0.9 100 Oral 118 Output: Urine 300 Other: Voiding Method Toilet Urinal Urinal # Voids 2 2 # Bowel Movements 1 ABP, PAP, CO, CI - Last Documented Arterial Blood Pressure 93/48 - Labs CBC & Chem 7: 11/29/24 04:48 11/29/24 04:48 Labs: Abnormal Lab Results - Last 24 Hours (Table) 11/29/24 11/29/24 Range/Units 04:48 04:48 WBC 12.58 H (4.50-10.00) X 10*3/uL RBC 3.79 L (4.40-5.60) X 10*6/uL Hgb 11.1 L (13.0-17.0) g/dL Hct 35.5 L (39.6-50.0) % MCHC 31.3 L (32.0-37.0) g/dL Sodium 133 L (135-145) mmol/L BUN/Creatinine Ratio 23.18 H (12.00-20.00) Ratio Glucose 121 H (70-110) mg/dL Calcium 8.2 L (8.7-10.3) mg/dL Microbiology - Last 24 Hours (Table) 11/26/24 04:14 Blood Culture - Preliminary Blood
[2024-11-29] MEDS ORDERED: ETOMIDATE 2 MG/ML 10 ML VIAL ONE (15:55)
[2024-11-29] MEDS ORDERED: fentaNYL (PF) 50 MCG/ML 2 ML AMP ONE (15:55)
[2024-11-29] MEDS ORDERED: LIDOCAINE 1% INJ 10MG/ML (20 ML MDV) ONE (15:55)
[2024-11-29] MEDS ORDERED: SUCCINYLCHOLINE CHLORIDE 200 MG/10 ML VIAL IV ONE (15:55)
[2024-11-29] MEDS ORDERED: ONDANSETRON 4 MG/2 ML VIAL ONE (15:55)
[2024-11-29] MEDS ORDERED: ROCURONIUM 10 MG/ML (5 ML VIAL) IV ONE (15:55)
[2024-11-29] MEDS ORDERED: PROPOFOL 10 MG/ML 20 ML VIAL IV ONE (15:55)
[2024-11-29] MEDS ORDERED: PHENYLEPHRINE 10 MG/ML VIAL ONE (15:55)
[2024-11-29] MEDS ORDERED: MIDAZOLAM 2 MG/2 ML VIAL ONE (15:55)
[2024-11-29] MEDS: IV FLUID CONTINUATION 800 ML IV ONE (16:00)
[2024-11-29] MEDS: SODIUM CHLORIDE 0.9% 50 ML with ceFAZolin 2,000 MG IV ONE (16:18)
[2024-11-29] MEDS: LACTATED RINGERS 1,000 ML IV ONE (16:18)
--- NOTE | 2024-11-29 16:35 | P.CNPUL ---
History of Present Illness Consult date: 11/29/24 Chief complaint: Cardiac tamponade History of present illness: This is a 84-year-old male patient who got transferred to the intensive care unit for hemodynamically unstable pericardial effusion with early signs of tamponade. The patient has history of sick sinus syndrome and symptomatic bradycardia and the patient is post dual-chamber pacemaker insertion that was performed on 11/13/2024. He also has history of nonsustained VT, nonischemic c ardiomyopathy, hyperlipidemia, COPD and chronic hypoxic respiratory failure in a patient artery dependent at 2 L/min nasal cannula, coronary artery disease and obstructive sleep apnea for which the patient is not utilizing any form of CPAP therapy at this point. He also has previous history of bladder cancer and previous history of smoking. The patient is quit smoking approximate 13 years ago. The patient got transferred to the intensive care unit and the patient is being taken to the operating room for a pericardial window. The patient had an echocardiogram that showed increasing pericardial effusion with evolving tamponade and an overlying right ventricular thrombus. His most recent BP is 109/76. Heart rate is around 78 with respiration of 22. Pulse ox is 96% on 3 L of oxygen by nasal cannula. Chest x-ray from 11/27/2024 showed increased bilateral stitcher markings and more focal left basilar opacity and small bilateral pleural effusion. The patient also had a pacemaker generator over the left anterior chest area. Most recent echocardiogram from 11/29/2024 showed a large pericardial effusion with signs of tamponade. Cardiothoracic surgery is aware. The WBC count is at 12.5 with hemoglobin 9.1 and a platelet count of 229. BUN 25 with a creatinine of 1.1 and a sodium levels at 133. Serum iron is at 26 and the patient has underlying iron deficiency. Echocardiogram also showed an ejection fraction of 40% without any significant valvular abnormalities. Review of Systems Constitutional: Reports as per HPI Eyes: denies as per HPI, denies blurred vision, denies bulging eye, denies decreased vision, denies diplopia, denies discharge, denies dry eye, denies irritation, denies itching, denies pain, denies photophobia, denies loss of peripheral vision, denies loss of vision, denies tunnel vision/blind spots Ears: deny: decreased hearing, ear discharge, earache, tinnitus Ears, nose, mouth and throat: Reports as per HPI Breasts: absent: as per HPI, gynecomastia Cardiovascular: Reports decreased exercise tolerance, Reports dyspnea on exertion Respiratory: Reports dyspnea Gastrointestinal: Reports as per HPI Genitourinary: Reports as per HPI Musculoskeletal: Reports as per HPI Musculoskeletal: absent: ankle pain, ankle stiffness, ankle swelling, as per HPI, elbow pain, elbow stiffness, elbow swelling, foot pain, foot stiffness, foot swelling, hand pain, hand stiffness, hand swelling, hip pain, hip stiffness, hip swelling, knee pain, knee stiffness, knee swelling, shoulder pain, shoulder stiffness, shoulder swelling, wrist pain, wrist stiffness, wrist swelling Integumentary: Reports as per HPI Neurological: Reports as per HPI Psychiatric: Reports as per HPI Endocrine: Reports as per HPI Hematologic/Lymphatic: Reports as per HPI Allergic/Immunologic: Reports as per HPI Past Medical History Past Medical History: Coronary Artery Disease (CAD), Cancer, Chest Pain / Angina, COPD, CVA/TIA, Hyperlipidemia, Osteoarthritis (OA), Respiratory Disorder, Sleep Apnea/CPAP/BIPAP, Syncope Additional Past Medical History / Comment(s): bladder cancer no chemo or radiation. TIA- old per testing- no residuals. recent URI infection getting better used 02 concentrator a little more. watching aorta per . BP runs low. cannot tolerate CPAP. 02 concentrator at night 2liters and as needed. Dual Pacemaker 11/26 History of Any Multi-Drug Resistant Organisms: None Reported Past Surgical History: Heart Catheterization, Hernia Repair, Pacemaker (November 13, 2024) Additional Past Surgical History / Comment(s): abdominal wall hernia. loop recorder, steph inguinal hernia. Past Anesthesia/Blood Transfusion Reactions: No Reported Reaction Additional Past Anesthesia/Blood Transfusion Reaction / Comment(s): BP drops Past Psychological History: Depression Smoking Status: Former smoker Past Alcohol Use History: None Reported Additional Past Alcohol Use History / Comment(s): over 12 yrs ago quit smoking, 2ppd Past Drug Use History: None Reported - Past Family History Mother Family Medical History: Congestive Heart Failure (CHF), COPD Father Family Medical History: Cancer (Leukemia) Medications and Allergies Home Medications Medication Instructions Recorded Confirmed Type Aspirin 81 mg PO DAILY 02/21/17 11/26/24 History Nitroglycerin Sl Tabs [Nitrostat] 0.4 mg SUBLINGUAL Q5M PRN 02/21/17 11/26/24 History Clopidogrel [Plavix] 75 mg PO DAILY #30 tab 02/23/17 11/26/24 Rx Atorvastatin [Lipitor] 20 mg PO HS 04/28/24 11/26/24 History Fluticasone/Umeclidin/Vilanter 1 puff INHALATION RT-DAILY 04/28/24 11/26/24 History [Trelegy Ellipta 200-62.5-25] Sertraline [Zoloft] 50 mg PO HS 04/28/24 11/26/24 History rOPINIRole HCL [Requip] 1 mg PO HS 04/28/24 11/26/24 History Acetaminophen Tab [Tylenol Tab] 500 mg PO Q6H PRN 11/10/24 11/26/24 History Albuterol Inhaler [Ventolin Hfa 2 puff INHALATION RT-Q4H PRN 11/10/24 11/26/24 History Inhaler] Ibuprofen [Advil] 200 mg PO Q6H PRN 11/10/24 11/26/24 History Allergies Allergy/AdvReac Type Severity Reaction Status Date / Time tape AdvReac blisters Uncoded 11/10/24 11:20 Physical Exam Vitals: Vital Signs Temp Pulse Pulse Resp BP BP Pulse Ox 11/29/24 15:00 78 22 96 11/29/24 14:00 98.1 F 81 19 109/76 95 11/29/24 13:00 80 23 108/67 96 11/29/24 07:20 98.2 F 81 18 105/68 96 11/29/24 01:50 97.7 F 77 16 103/68 95 11/28/24 19:05 97.5 F L 77 16 102/69 95 Intake and Output 11/29/24 11/29/24 11/29/24 06:59 14:59 22:59 Intake Total 100 50 Balance 100 50 Intake: IV 100 50 0.9 100 Other: Voiding Method Urinal # Voids 2 ABP, PAP, CO, CI - Last 8 Hours Arterial Blood Pressure 93/48 Results - Laboratory Findings CBC and BMP: 11/29/24 04:48 11/29/24 04:48 PT/INR, D-dimer PT 11.7 sec (10.0-12.5) 11/26/24 01:01 INR 1.1 (<1.2) 11/26/24 01:01 Abnormal lab findings: Abnormal Labs 11/26/24 11/26/24 11/26/24 01:01 01:01 01:01 WBC 14.08 H RBC 4.17 L Hgb 12.6 L Hct 38.1 L MCHC RDW MPV 9.1 L Immature Gran # 0.11 H Neutrophils # 9.46 H Monocytes # 1.02 H Eosinophils # 1.69 H Retic Count Sodium 135 L Carbon Dioxide BUN/Creatinine Ratio Glucose 122 H Calcium Iron % Saturation Lactate Dehydrogenase C-Reactive Protein 1.5 H 11/26/24 11/26/24 11/26/24 07:13 07:13 07:13 WBC 12.17 H RBC 3.84 L Hgb 11.4 L Hct 36.1 L MCHC 31.6 L RDW MPV 9.4 L Immature Gran # Neutrophils # Monocytes # Eosinophils # Retic Count 3.29 H Sodium Carbon Dioxide BUN/Creatinine Ratio Glucose 140 H Calcium Iron % Saturation Lactate Dehydrogenase C-Reactive Protein 11/26/24 11/27/24 11/27/24 07:13 05:24 05:24 WBC 11.74 H RBC 3.81 L Hgb 11.2 L Hct 35.8 L MCHC 31.3 L RDW MPV Immature Gran # 0.07 H Neutrophils # 8.09 H Monocytes # 1.25 H Eosinophils # 0.98 H Retic Count Sodium 134 L Carbon Dioxide BUN/Creatinine Ratio Glucose 123 H Calcium 8.0 L Iron 26 L % Saturation 7.83 L Lactate Dehydrogenase 271 H C-Reactive Protein 11/28/24 11/28/24 11/29/24 02:36 02:36 04:48 WBC 14.73 H 12.58 H RBC 3.73 L 3.79 L Hgb 11.0 L 11.1 L Hct 35.1 L 35.5 L MCHC 31.3 L 31.3 L RDW 14.6 H MPV Immature Gran # Neutrophils # Monocytes # Eosinophils # Retic Count Sodium 133 L Carbon Dioxide 20.6 L BUN/Creatinine Ratio Glucose 139 H Calcium 7.9 L Iron % Saturation Lactate Dehydrogenase C-Reactive Protein 11/29/24 04:48 WBC RBC Hgb Hct MCHC RDW MPV Immature Gran # Neutrophils # Monocytes # Eosinophils # Retic Count Sodium 133 L Carbon Dioxide BUN/Creatinine Ratio 23.18 H Glucose 121 H Calcium 8.2 L Iron % Saturation Lactate Dehydrogenase C-Reactive Protein - Diagnostic Findings Chest x-ray: image reviewed Assessment and Plan Plan: Large pericardial effusion with signs of cardiac tamponade. The patient remains hemodynamically stable. The patient will need a pericardial window and CT surgery is on the case. The patient got transferred to the intensive care unit for hemodynamic monitoring. Sick sinus syndrome with symptomatic bradycardia status post dual-chamber pacemaker insertion on 11/13/2024 CHF with an ejection fraction of 40% Previous history of nonsustained VT Coronary artery disease COPD with chronic hypoxic respiratory failure maintained on oxygen 2 L/min nasal cannula Obstructive sleep apnea, not receiving any CPAP therapy Previous history of bladder cancer History of TIA, maintained on Plavix on outpatient basis Former smoker Iron deficiency anemia Left-sided pleural effusion/small Plan Admit the patient to the intensive care unit. The patient will be taken to the operating room to undergo a pericardial window. Plavix is currently on hold. The patient is on no pressors and the patient is hemodynamically stable at this point. Continue Spiriva and Symbicort Albuterol nebulizer treatments as needed, 4 times a day Empiric antibiotic coverage with IV Rocephin Will continue to follow and make further recommendations based on the progress. The patient was brought back to the ICU following his pericardial window.
--- NOTE | 2024-11-29 17:29 | P.ANPRN ---
Procedure Note - Anesthesia - LAURIE Intraop Pre Bypass LAURIE Intraop - Anesthesia Indication: pericardial effusion Date of Procedure: 11/29/24 Pre-operative Diagnosis: pericardial effusion Post-operative Diagnosis: same Surgeon: Doug Abdi Ejection Fraction: Other (45-50) Regional Wall Motion Abnormalities: None Left Ventricle Hypertrophy: No R. Ventricle Function: Normal Aortic Valve: calcified trileaflet valve Anatomy: Trileaflet Aortic Stenosis: None Aortic Regurgitation: Trace Other Findings: large pericardial effusion. circumferencial. small pieces of clot noted a long right ventricular wall. After evacuation, minimal fluid remaining Mitral Stenosis: None Mitral Regurgitation: None Tricuspid Stenosis: None Tricuspid Regurgitation: None Pulmonic Stenosis: None Pulmonic Regurgitation: None R. Atrial Dilation: No R. Atrial PFO: No L. Atrial Dilation: No Aortic Dissection: No Aortic Calcification: Moderate
--- NOTE | 2024-11-29 17:47 | XR ---
EXAMINATION TYPE: XR chest 1V portable DATE OF EXAM: 11/29/2024 5:32 PM COMPARISON: 11/27/2024 CLINICAL INDICATION: Male, 84 years old with history of chest tube/pericardial window, TECHNIQUE: XR chest 1V portable view(s) obtained semiupright position. FINDINGS: The heart size is normal. The pulmonary vasculature is prominent. In the left perihilar region there is a area of increased de nsity may be atelectasis or pneumonia Small bilateral pleural effusions are present. Mediastinal tube is present. Pacemaker overlies left chest. IMPRESSION: 1. Small bilateral pleural effusions. 2. Left perihilar infiltrate. Correlate for atelectasis and pneumonia. [facility], , 11/29/2024 5:44 PM
[2024-11-29 18:33] LABS: Glucose,Whole Blood 122 mg/dL (70-110)
--- NOTE | 2024-11-29 18:40 | CDI ---
Documentation Clarification Form Date: 11/29/2024 06:21:10 PM From: Stephanie Griffith RN CCDS Phone: [phone] Admit Date: 11/26/2024 03:36:00 AM Patient Name: Stephan Becker Visit Number: [id number] Discharge Date: ATTENTION: The Clinical Documentation Specialists (CDI) and [facility] Coding Staff appreciate your assistance in clarifying documentation. Please respond to the clarification below the line at the bottom and electronically sign. The CDI & [facility] Coding staff will review the response and follow-up if needed. Please note: Queries are made part of the Legal Health Record. If you have any questions, please contact the author of this message via ITS. Doctor: Terry Torre Your patient has the documented diagnosis of unspecified CHF with an ejection fraction of 40% 11/29, Pulmonary consult Additional information regarding the [type, acuity] of CHF is requested. History/Risk Factors:84 year old male presents to the ED for evaluation of shortness of breath and chest pain prior to arrival, while in ED he began to have severe back pain left lower extremity pain and some pain in left leg. Medical History, Recent pacemaker placement, COPD on home oxygen prn, chronic respiratory failure and CAD. 11/26, HP Clinical Indicators: VS/Pulse OX, 11/26: B/P 101/67, HR 84, Temp 98.6F Oral, RR 18, SpO2 94% 2L nc BNP, 11/26: 380 Echocardiogram Results, 11/27: EF 40% Chest X Ray, 11/26: Bibasilar sub segmental changes left greater than right are presumed asymmetric edema. Coexisting infection is difficult to exclude in this region. Treatment: 11/26 Toprol Xl 25mg PO Daily, In your professional opinion, can you please clarify the acuity and type of CHF if known? [ x] Chronic Systolic Heart Failure (reduced EF) [ ] Chronic Diastolic Heart Failure (preserved EF) [ ] Chronic Systolic & Diastolic Heart Failure [ ] Other, please specify [ ] Unable to determine (Template Last Revised: July 2020) MTDD
--- NOTE | 2024-11-29 23:21 | OP ---
OPERATIVE REPORT DATE OF SERVICE : 11/29/2024 PREOPERATIVE DIAGNOSIS: Pericardial tamponade. POSTOPERATIVE DIAGNOSIS: Pericardial tamponade. PROCEDURE: 1. Pericardial window. 2. Transesophageal echocardiogram. STUDENT SERVICES COUNSELOR: Jayme Carr NP. ANESTHESIA: General. SPECIMEN: 1. Pericardial fluid. 2. Pericardial tissue. COMPLICATIONS: None. EBL: Less than 10 mL. INDICATION: The patient is an 84-year-old male who underwent placement of a pacemaker approximately 2 weeks ago. He was now found to have a circumferential pericardial effusion with signs of tamponade. A pericardial window was recommended. The risks, benefits, and alternatives of the procedure were discussed with the patient. All of his questions were answered. Consent was obtained. FINDINGS: Approximately 500 mL of bloody fluid was drained from the pericardial space. There was no change in hemodynamics after drainage of fluid. PROCEDURE IN DETAIL: The patient was taken to the operating room and placed supine on the operating table. After the induction of general anesthesia, he was prepped and draped in the usual sterile fashion. There were no changes in hemodynamics during this portion of the case. Transesophageal echocardiogram confirmed a circumferential pericardial effusion. A vertical midline incision was created in the epigastric region. Dissection was taken down through the subcutaneous tissue until the subxiphoid process was encountered. This was then excised. Dissection continued beneath the left costal margin. The pericardium was eventually identified. A small incision was created. Approximately 500 mL of bloody fluid was drained from the pericardial space. A portion was sent to microbiology. The remainder sent to pathology. A segment of the pericardial tissue itself was also removed. A portion was sent to microbiology and remainder sent to pathology. There was no change in hemodynamics after drainage of fluid. Followup transesophageal echocardiogram revealed complete resolution of the pericardial effusion. Hemostasis was assured. A Julius drain was then placed and directed into the left pleural space. A [place] right angle chest tube was placed and directed into a retrocardiac position. Both tubes were secured to the skin using sutures. The wound was then closed in multiple layers. A sterile dressing was applied. The patient appeared to tolerate the procedure well. There were no immediate complications. He was extubated at the completion of the case and returned to the recovery room in stable condition. MMODL / IJN: [id number] / [facility]
[2024-11-29] MEDS: ACETAMINOPHEN TAB 500 MG TAB PO PRN (23:39)
[2024-11-29 23:58] LABS: Glucose,Whole Blood 109 mg/dL (70-110)
[2024-11-30 02:58] LABS: HCT 34.1 % (39.6-50.0); HGB 10.9 g/dL (13.0-17.0); MCH 29.7 pg (27.0-32.0); MCV 92.9 fL (80.0-97.0); Mean Platelet Volume 9.9 fL (9.5-12.2); Platelet Count 219 10*3/uL (140-440); RBC 3.67 10*6/uL (4.40-5.60); RDW 14.5 % (11.5-14.5); WBC 9.13 10*3/uL (4.50-10.00)
[2024-11-30 03:30] LABS: African American GFR (CKD) 76 (>60 ml/min/1.73 sqM); Anion Gap 6 mmol/L; Blood Urea Nitrogen 34 mg/dL (9-20); Calcium 7.8 mg/dL (8.4-10.2); Carbon Dioxide 20 mmol/L (22-30); Chloride 108 mmol/L (98-107); Glucose 103 mg/dL (74-99); Non-African American GFR(CKD) 66 (>60 ml/min/1.73 sqM); Sodium 134 mmol/L (137-145)
--- NOTE | 2024-11-30 07:32 | XR ---
EXAMINATION TYPE: XR chest 1V portable DATE OF EXAM: 11/30/2024 7:06 AM COMPARISON: 11/29/2024 CLINICAL INDICATION: Male, 84 years old with history of post pericardial window, , FINDINGS: The patient's pericardial drain is not well seen due to the degree of penetration. Loop recorder [place] ce projects of the left mid chest. Left anterior chest wall pacemaker generator with right atrial and ventricular leads. Heart remains mild to moderately enlarged. Diffuse interstitial densities persist . Small to moderate left and small right pleural effusions with adjacent bibasilar opacities also per sist. IMPRESSION: 1. The patient's pericardial drain is not well seen due to the degree of penetration. There is simila r mild to moderate cardiomegaly. 2. Ongoing CHF with interstitial pulmonary edema. 3. Ongoing small to moderate left and small right pleural effusions with adjacent atelectasis and/or consolidation. [facility], Workstation: [employer], 11/30/2024 7:30 AM
--- NOTE | 2024-11-30 07:51 | P.PN ---
Subjective Progress Note Date: 11/30/24 Principal diagnosis: Mild to moderate pericardial effusion, increased to large with evidence of early tamponade. Previous medical history of sick sinus syndrome/symptomatic bradyca rdia status post insertion of dual-chamber permanent pacemaker 11/13/2024, nonsustained ventricular tachycardia, nonischemic cardiomyopathy, coronary artery disease, hyperlipidemia, TIA on Plavix as an outpatient, COPD with chronic hypoxic respiratory failure on home oxygen using 2 L nasal cannula at night, depression, obesity, obstructive sleep apnea without home CPAP use, bladder cancer, and previous tobacco dependence POD #1 pericardial window with transesophageal echocardiogram The patient was seen and examined this morning sitting up in bed in the intensive care unit in no acute distress. States pain is controlled on current medication regimen, denies significant shortness of breath. Remains in sinus rhythm, hemodynamically stable although systolic blood pressure soft overnight. Currently on 5 L nasal cannula with oxygen saturation of the mid 90s. Mediastinal/left pleural chest tubes remain. No other new concerns. Objective - Vital Signs Vital signs: Vital Signs Temp 97.8 F 11/30/24 00:00 Pulse 70 11/30/24 07:00 Resp 21 11/30/24 07:00 BP 84/57 11/30/24 07:00 Pulse Ox 95 11/30/24 07:00 FiO2 Intake & Output 11/29/24 11/30/24 11/30/24 18:59 06:59 18:59 Intake Total 1200 1200 Output Total 10 485 4 Balance 1190 715 -4 Weight 105.9 kg Intake: IV 1200 1200 0.9 300 1200 Output: Chest Tube Drainage 235 4 Chest Tube Left 140 4 Chest Tube Mediastinal 95 0 Urine 250 Estimated Blood Loss 10 Other: Voiding Method Urinal Urinal # Voids 1 ABP, PAP, CO, CI - Last Documented Arterial Blood Pressure 87/46 - Exam CONSTITUTIONAL: Appears comfortable, cooperative, no acute distress RESPIRATORY: Lungs sounds coarse bilaterally. Respirations even, nonlabored. Currently on 5 L nasal cannula with oxygen saturation 94%. Able to achieve 1500 mL on incentive spirometry. Strong cough. CARDIOVASCULAR: S1, S2 present. Regular rate and rhythm, sinus rhythm on telemetry. Palpable peripheral pulses bilaterally. No edema present. No calf pain or tenderness noted GASTROINTESTINAL: Abdomen soft, nontender, nondistended. Active bowel sounds present 4 quadrants. Tolerating diet. Positive bowel movement 6/24 GENITOURINARY: Continues to void INTEGUMENTARY: Skin is warm and dry NEUROLOGIC: Cranial nerves II through XII intact MUSKULOSKELETAL: Able to move all extremities, strength equal bilaterally, gait normal PSYCHIATRIC: Alert and oriented to person place and time, appropriate affect, intact judgment and insight INVASIVE LINES AND TUBES: Mediastinal/left pleural chest tubes present and connected to wall suction, no air leaks present. Mediastinal tube with 30 mL serosanguineous drainage overnight, 100 mL surgery. Left pleural chest tube with 55 mL serosanguineous drainage overnight, 140 mL since surgery. - Allied health notes Allied health notes reviewed: nursing - Labs CBC & Chem 7: 11/30/24 02:40 11/30/24 02:40 Labs: Abnormal Lab Results - Last 24 Hours (Table) 11/29/24 11/29/24 11/29/24 Range/Units 04:48 04:48 18:31 WBC 12.58 H (4.50-10.00) X 10*3/uL RBC 3.79 L (4.40-5.60) X 10*6/uL Hgb 11.1 L (13.0-17.0) g/dL Hct 35.5 L (39.6-50.0) % MCHC 31.3 L (32.0-37.0) g/dL Sodium 133 L (135-145) mmol/L Chloride (98-107) mmol/L Carbon Dioxide (22-30) mmol/L BUN (9-20) mg/dL BUN/Creatinine Ratio 23.18 H (12.00-20.00) Ratio Glucose 121 H (70-110) mg/dL POC Glucose (mg/dL) 122 H (70-110) mg/dL Calcium 8.2 L (8.7-10.3) mg/dL 11/30/24 11/30/24 Range/Units 02:40 02:40 WBC (4.50-10.00) X 10*3/uL RBC 3.67 L (4.40-5.60) X 10*6/uL Hgb 10.9 L (13.0-17.0) g/dL Hct 34.1 L (39.6-50.0) % MCHC (32.0-37.0) g/dL Sodium 134 L (135-145) mmol/L Chloride 108 H (98-107) mmol/L Carbon Dioxide 20 L (22-30) mmol/L BUN 34 H (9-20) mg/dL BUN/Creatinine Ratio (12.00-20.00) Ratio Glucose 103 H (70-110) mg/dL POC Glucose (mg/dL) (70-110) mg/dL Calcium 7.8 L (8.7-10.3) mg/dL Microbiology - Last 24 Hours (Table) 11/26/24 04:14 Blood Culture - Preliminary Blood - Imaging and Cardiology Chest x-ray: image reviewed Assessment and Plan Assessment: Mild to moderate pericardial effusion, increased to large with evidence of early tamponade, status post pericardial window History of sick sinus syndrome/symptomatic bradycardia status post insertion of dual-chamber permanent pacemaker 11/13/2024 Nonsustained ventricular tachycardia Nonischemic cardiomyopathy Coronary artery disease Hyperlipidemia TIA on Plavix as an outpatient COPD with chronic hypoxic respiratory failure on home oxygen using 2 L nasal cannula at night Depression Obesity Obstructive sleep apnea without home CPAP use Bladder cancer Previous tobacco dependence Plan: Continue chest tubes to continuous wall suction for another 24 hours, monitor output Wean oxygen as tolerated, encourage incentive spirometry use 10 times every hour while awake Increase activity, ambulate as tolerated. PT/OT consulted Will monitor daily labs and x-rays IV fluids discontinued Plavix can be restarted from cardiothoracic surgery standpoint Patient does not need to stay in the intensive care unit from our standpoint Medical management of other comorbidities per internal medicine, cardiology, pulmonology More recommendations to follow
--- NOTE | 2024-11-30 09:45 | P.PN ---
Subjective Progress Note Date: 11/30/24 The patient is an 84-year-old male with multiple comorbid conditions, who is currently admitted to the hospital with increased shortness of breath. Patient recently had pacemaker placed on November [address] Henson. He was found to have a pericardial effusion and therefore underwent pericardial drain placement yesterday with Dr. Abdi. Patient interviewed and examined resting in the ICU. He states he has significant pain with deep breathing as well as coughing. He does believe his breathing is better now that the drains have been placed. GENERAL: Well-appearing, well-nourished and in no acute distress. NECK: Supple without JVD or thyromegaly. LUNGS: Breath sounds coarse to auscultation bilaterally. Respiration equal and unlabored. Bilateral rhonchi. HEART: Regular rate and rhythm without murmurs, rubs or gallops. S1 and S2 heard. Pacemaker incision well-approximated. No drainage. EXTREMITIES: Normal range of motion, no edema. No clubbing or cyanosis. Peripheral pulses intact and strong. TELEMETRY: Sinus rhythm overnight LABS: WBC 9.1, hemoglobin 10.9, hematocrit 34.1, platelet 219, sodium 134, potassium 5.0, BUN 34, creatinine 1.05 IMPRESSION: Pericardial effusion Substernal chest pain, pleuritic in nature Left lower lobe pneumonia with evidence of leukocytosis History of sick sinus syndrome status post PPM 11/13/2024 Prior history of TIA Prior history of cardiomyopathy with recovered LVEF PLAN: Continue supportive treatment Discussed pulmonary hygiene along with pain management Further recommendations to be based on clinical course I am dictating on behalf of Dr Jayme Cottrell's history/physical and assessment/plan. Objective - Vital Signs Vital signs: Vital Signs Temp 97.8 F 11/30/24 09:00 Pulse 74 11/30/24 09:00 Resp 16 11/30/24 09:00 BP 103/62 11/30/24 09:00 Pulse Ox 96 11/30/24 09:12 FiO2 Intake & Output 11/29/24 11/30/24 11/30/24 18:59 06:59 18:59 Intake Total 1200 1200 Output Total 10 485 29 Balance 1190 715 -29 Weight 105.9 kg Intake: IV 1200 1200 0.9 300 1200 Output: Chest Tube Drainage 235 29 Chest Tube Left 140 24 Chest Tube Mediastinal 95 5 Urine 250 Estimated Blood Loss 10 Other: Voiding Method Urinal Urinal Urinal # Voids 1 ABP, PAP, CO, CI - Last Documented Arterial Blood Pressure 97/51 - Labs CBC & Chem 7: 11/30/24 02:40 11/30/24 02:40 Labs: Abnormal Lab Results - Last 24 Hours (Table) 11/29/24 11/30/24 11/30/24 Range/Units 18:31 02:40 02:40 RBC 3.67 L (4.40-5.60) 10*6/uL Hgb 10.9 L (13.0-17.0) g/dL Hct 34.1 L (39.6-50.0) % Sodium 134 L (137-145) mmol/L Chloride 108 H (98-107) mmol/L Carbon Dioxide 20 L (22-30) mmol/L BUN 34 H (9-20) mg/dL Glucose 103 H (74-99) mg/dL POC Glucose (mg/dL) 122 H (70-110) mg/dL Calcium 7.8 L (8.4-10.2) mg/dL Microbiology - Last 24 Hours (Table) 11/26/24 04:14 Blood Culture - Preliminary Blood
--- NOTE | 2024-11-30 11:27 | P.PN ---
Subjective Progress Note Date: 11/30/24 Patient is a 84 year old male with CAD, COPD, AR, former heavy smoker presented to the ED with shortness of breath and chest pain. Patient reports his shortness of breath started yesterday night when he was resting. He states having midsternal chest pain with deep breaths, no radiation of pain. Associated with that he experienced cough for two weeks, with dark blackish sputum production initially, but it is clear now. He denies fever, chills, trauma. Denies any travel history. He uses oxygen intermittently at home, usually at night, at 2L. He mentions having a heart catheterization in the past but denies any stents placed. Denies history of CHF. He reports getting short of breath when walking to and from the restroom at home, but states that its at baseline. He uses a walker at home to ambulate. He quit smoking 13 years ago. Patient recently 11/13/24 underwent insertion of dual-chamber permanent pacemaker for sick sinus syndrome, symptomatic bradycardia with need for beta-td for VT and cardiomyopathy. Denies fever, chills, palpitations, abdominal pain, nausea, vomiting, hematuria, dysuria, hematochezia, melena, headache, slurred speech, numbness, tingling, dizziness, lightheadedness, blurred vision, double vision. ED documentation reviewed. In the ED patient was treated with DuoNeb, ketorolac, lorazepam, Rocephin, 0.9 normal saline, Zithromax. 11/27/2024patient seen and examined at bedside. No events overnight. No complaints of shortness of breath or chest pain this morning. 11/28/2024patient seen and examined at bedside. No events overnight. No new complaints. Continue to wean oxygen as tolerated, currently on 3 L nasal cannula saturating at 96% 11/29/2024patient seen and examined at bedside. No events overnight. Some shortness of breath. Echocardiogram with increasing pericardial effusion evolving tamponade and overlying right ventricular thrombus, patient transferred to ICU. 11/30/2024patient seen and examined at bedside in the ICU. Blood pressure dolly rderline hypotensive overnight. Denies chest pain or shortness of breath. Yesterday patient underwent pericardial window and transesophageal echocardiogram. Review of systems: Pertinent positives and negatives as discussed in HPI, a complete review of systems was performed and all other systems are negative. Physical examination: Vital signs reviewed General: nontoxic, no distress, appears at stated age Derm: warm, dry, intact Cardiovascular: S1 S2 reg, no murmur Lungs: CTA bilateral, no rhonchi, no rales, no accessory muscle use Abdominal: soft, non-tender to palpation Extremities: No cyanosis, clubbing, or pedal edema. Neuro: Alert, Oriented, Gross neurological examination did not reveal any focal deficits. Today's pertinent findings: LabsWBC 9.1, hemoglobin 10.9, sodium 134, potassium 5.0, bicarb 20, BUN 34, creatinine 1.0 Imagingchest x-ray independently interpreted increasing left lower lobe opacities, continued left lower lobe opacities, possible pleural effusion Assessment/Plan: Patient is a 84 year old male with CAD, COPD, AR presented to the ED with shortness of breath and chest pain #Pericardial effusion, s/p pericardial window, 500 mL of bloody fluid drained from pericardial space #. Atypical chest pain #. CAD S/p cardiac catheterization #History of sick sinus syndrome status post PPM 11/13/2024 Initial troponin I <0.012 Continue home meds Aspirin, statin, discontinue Plavix Continue telemetry monitoring Echocardiogram with mild to moderate pericardial effusion, globally decreased contractility, LVEF 40% Follow-up echocardiogram with increasing pericardial effusion evolving tamponade and overlying right ventricular thrombus, transferred to ICU Continue colchicine 0.6 mg twice daily Cardiology following CT surgery following, s/p pericardial window, 500 mL of bloody fluid drained from pericardial space, chest tube in place #. Community acquired pneumonia #. Leukocytosis, likely secondary to above #. Chronic hypoxic respiratory failure #. COPD (on home oxygen 2L PRN) Initial chest x-ray shows bibasilar subsegmental changes, left greater than right are presumed asymmetric edema, coexisting infection is difficult to exclude in this region, no large pleural effusion or pneumothorax Completed azithromycin 500 mg IVPB for total of 3 days and Rocephin 2 g IVPB every 24 hours for total of 5 days Continue Ventolin and Symbicort, Spiriva Wean oxygen as tolerated Blood culture, sputum culture pending. Legionella antigen negative #. Normocytic anemia Obtain iron studies iron saturation 7.83%, LDH 271, retic count 3.2%. vit B12, folate pending Monitor CBC Transfuse for Hb<7 #. Mild hyponatremia Monitor BMP Discontinue IV fluid Chronic: #. Sick sinus syndrome S/p dual chamber permanent pacemaker implantation 11/13/24 #. AR not on CPAP, cannot tolerate #. History of TIA #. Anxiety/depression #. Restless leg syndrome F: None E: Replete as required N: Heart healthy diet A: Bedrest DVT prophylaxis: Lovenox 40 mg SQ daily CODE STATUS: FULL CODE Discussed with: Patient Anticipated discharge place: Pending clinical course Joe Hare MD Internal Medicine Resident, PGY1 Dictation was produced using [employer] dictation software. please excuse any grammatical, word or spelling errors. I have seen and evaluated the patient today. Discussed with the resident and agree with the residents finding and plan as documented in the resident's note. Changes highlighted in blue font. Objective - Vital Signs Vital signs: Vital Signs Temp 97.8 F 11/30/24 00:00 Pulse 70 11/30/24 07:00 Resp 21 11/30/24 07:00 BP 84/57 11/30/24 07:00 Pulse Ox 95 11/30/24 07:00 FiO2 Intake & Output 11/29/24 11/30/24 11/30/24 18:59 06:59 18:59 Intake Total 1200 1200 Output Total 10 485 4 Balance 1190 715 -4 Weight 105.9 kg Intake: IV 1200 1200 0.9 300 1200 Output: Chest Tube Drainage 235 4 Chest Tube Left 140 4 Chest Tube Mediastinal 95 0 Urine 250 Estimated Blood Loss 10 Other: Voiding Method Urinal Urinal # Voids 1 ABP, PAP, CO, CI - Last Documented Arterial Blood Pressure 87/46 - Labs CBC & Chem 7: 11/30/24 02:40 11/30/24 02:40 Labs: Abnormal Lab Results - Last 24 Hours (Table) 11/29/24 11/29/24 11/29/24 Range/Units 04:48 04:48 18:31 WBC 12.58 H (4.50-10.00) X 10*3/uL RBC 3.79 L (4.40-5.60) X 10*6/uL Hgb 11.1 L (13.0-17.0) g/dL Hct 35.5 L (39.6-50.0) % MCHC 31.3 L (32.0-37.0) g/dL Sodium 133 L (135-145) mmol/L Chloride (98-107) mmol/L Carbon Dioxide (22-30) mmol/L BUN (9-20) mg/dL BUN/Creatinine Ratio 23.18 H (12.00-20.00) Ratio Glucose 121 H (70-110) mg/dL POC Glucose (mg/dL) 122 H (70-110) mg/dL Calcium 8.2 L (8.7-10.3) mg/dL 11/30/24 11/30/24 Range/Units 02:40 02:40 WBC (4.50-10.00) X 10*3/uL RBC 3.67 L (4.40-5.60) X 10*6/uL Hgb 10.9 L (13.0-17.0) g/dL Hct 34.1 L (39.6-50.0) % MCHC (32.0-37.0) g/dL Sodium 134 L (135-145) mmol/L Chloride 108 H (98-107) mmol/L Carbon Dioxide 20 L (22-30) mmol/L BUN 34 H (9-20) mg/dL BUN/Creatinine Ratio (12.00-20.00) Ratio Glucose 103 H (70-110) mg/dL POC Glucose (mg/dL) (70-110) mg/dL Calcium 7.8 L (8.7-10.3) mg/dL Microbiology - Last 24 Hours (Table) 11/26/24 04:14 Blood Culture - Preliminary Blood
--- NOTE | 2024-11-30 17:07 | P.PN ---
Subjective Progress Note Date: 11/30/24 This is a 84-year-old male patient who got transferred to the intensive care un it for hemodynamically unstable pericardial effusion with early signs of tamponade. The patient has history of sick sinus syndrome and symptomatic bradycardia and the patient is post dual-chamber pacemaker insertion that was performed on 11/13/2024. He also has history of nonsustained VT, nonischemic cardiomyopathy, hyperlipidemia, COPD and chronic hypoxic respiratory failure in a patient artery dependent at 2 L/min nasal cannula, coronary artery disease and obstructive sleep apnea for which the patient is not utilizing any form of CPAP therapy at this point. He also has previous history of bladder cancer and previous history of smoking. The patient is quit smoking approximate 13 years ago. The patient got transferred to the intensive care unit and the patient is being taken to the operating room for a pericardial window. The patient had an echocardiogram that showed increasing pericardial effusion with evolving tamponade and an overlying right ventricular thrombus. His most recent BP is 109/76. Heart rate is around 78 with respiration of 22. Pulse ox is 96% on 3 L of oxygen by nasal cannula. Chest x-ray from 11/27/2024 showed increased bilateral stitcher markings and more focal left basilar opacity and small bilateral pleural effusion. The patient also had a pacemaker generator over the left anterior chest area. Most recent echocardiogram from 11/29/2024 showed a large pericardial effusion with signs of tamponade. Cardiothoracic surgery is aware. The WBC count is at 12.5 with hemoglobin 9.1 and a platelet count of 229. BUN 25 with a creatinine of 1.1 and a sodium levels at 133. Serum iron is at 26 and the patient has underlying iron deficiency. Echocardiogram also showed an ejection fraction of 40% without any significant valvular abnormalities. On 11/30/2024, the patient is being seen for a follow-up. The patient was taken to the operating room yesterday and the patient underwent a pericardial window and the patient is currently postop day #1. Noted the patient had an immediate drainage of 500 cc of bloody fluid and this was drained from the pericardial space. The patient has a pericardial tube in place for now and another 100 cc of output was noted since surgery. The patient also has a left pleural chest tube and the total amount of output is 140 cc since surgery. The chest x-ray from today shows mild to moderate cardiomegaly, ongoing CHF with increased interstitial pulmonary markings. Small to moderate-sized left and small right-sided pleural effusion noted. The patient has a pacemaker over the left anterior chest. The pericardial tube is not adequately seen on today's chest x- ray. Otherwise, the patient is doing well. The patient is hemodynamically stable. The white cell count is at 9.1 with a hemoglobin 10.9 and a platelet count of 219. Sodium is 134, BUN is 34 with a creatinine of 1.05. Potassium level is at 5. Serum bicarb is at 20. Cardiac rhythm is sinus. The patient remains on colchicine. The patient remains on Toradol for pain control. He remains on Spiriva and Ventolin rescue inhaler in last 28 basis. No other significant events overnight. No significant cardiac arrhythmias. The patient is hemodynamically stable. Objective - Vital Signs Vital signs: Vital Signs Temp 97.8 F 11/30/24 09:00 Pulse 71 11/30/24 10:00 Resp 19 11/30/24 10:00 BP 107/61 11/30/24 10:00 Pulse Ox 94 L 11/30/24 10:00 FiO2 Intake & Output 11/29/24 11/30/24 11/30/24 18:59 06:59 18:59 Intake Total 1200 1200 Output Total 10 485 29 Balance 1190 715 -29 Weight 105.9 kg Intake: IV 1200 1200 0.9 300 1200 Output: Chest Tube Drainage 235 29 Chest Tube Left 140 24 Chest Tube Mediastinal 95 5 Urine 250 Estimated Blood Loss 10 Other: Voiding Method Urinal Urinal Urinal # Voids 1 ABP, PAP, CO, CI - Last Documented Arterial Blood Pressure 95/46 - Exam CONSTITUTIONAL: Appears comfortable, cooperative, no acute distress RESPIRATORY: Lungs sounds coarse bilaterally. Respirations even, nonlabored. Currently on 5 L nasal cannula with oxygen saturation 94%. Able to achieve 1500 mL on incentive spirometry. Strong cough. CARDIOVASCULAR: S1, S2 present. Regular rate and rhythm, sinus rhythm on telemetry. Palpable peripheral pulses bilaterally. No edema present. No calf pain or tenderness noted GASTROINTESTINAL: Abdomen soft, nontender, nondistended. Active bowel sounds present 4 quadrants. Tolerating diet. Positive bowel movement 11/28 GENITOURINARY: Continues to void INTEGUMENTARY: Skin is warm and dry NEUROLOGIC: Cranial nerves II through XII intact MUSKULOSKELETAL: Able to move all extremities, strength equal bilaterally, gait normal PSYCHIATRIC: Alert and oriented to person place and time, appropriate affect, intact judgment and insight INVASIVE LINES AND TUBES: Mediastinal/left pleural chest tubes present and connected to wall suction, no air leaks present. Mediastinal tube with 30 mL serosanguineous drainage overnight, 100 mL surgery. Left pleural chest tube with 55 mL serosanguineous drainage overnight, 140 mL since surgery. - Labs CBC & Chem 7: 11/30/24 02:40 11/30/24 02:40 Labs: Abnormal Lab Results - Last 24 Hours (Table) 11/29/24 11/30/24 11/30/24 Range/Units 18:31 02:40 02:40 RBC 3.67 L (4.40-5.60) 10*6/uL Hgb 10.9 L (13.0-17.0) g/dL Hct 34.1 L (39.6-50.0) % Sodium 134 L (137-145) mmol/L Chloride 108 H (98-107) mmol/L Carbon Dioxide 20 L (22-30) mmol/L BUN 34 H (9-20) mg/dL Glucose 103 H (74-99) mg/dL POC Glucose (mg/dL) 122 H (70-110) mg/dL Calcium 7.8 L (8.4-10.2) mg/dL Microbiology - Last 24 Hours (Table) 11/26/24 04:14 Blood Culture - Preliminary Blood Assessment and Plan Plan: Large pericardial effusion with signs of cardiac tamponade. The patient is postop day #1 post pericardial window. Pericardial tube is in place. Output is being noted and monitored. Cardiology and cardiothoracic surgery is on the case. Hemodynamically stable. No pressors for now. Acute hypoxic respiratory failure, likely secondary to underlying CHF and the patient has some small bilateral pleural effusion effusions and atelectatic changes lung bases. Currently on 5 L of oxygen by nasal cannula. Sick sinus syndrome with symptomatic bradycardia status post dual-chamber pacemaker insertion on 11/13/2024 CHF with an ejection fraction of 40% Previous history of nonsustained VT Coronary artery disease COPD with chronic hypoxic respiratory failure maintained on oxygen 2 L/min nasal cannula Obstructive sleep apnea, not receiving any CPAP therapy Previous history of bladder cancer History of TIA, maintained on Plavix on outpatient basis Former smoker Iron deficiency anemia Left-sided pleural effusion/small Plan Monitor output from the pericardial tube Cardiothoracic surgery is on the case Hemodynamically stable Continue colchicine Toradol for pain control Continue Spiriva and Ventolin rescue inhaler on as-needed basis Albuterol nebulizer treatments as needed, 4 times a day Lovenox for DVT prophylaxis 40 mg subcu Will continue to follow and make further recommendations based on the progress.
[2024-12-01 08:27] LABS: HCT 35.1 % (39.6-50.0); MCH 29.4 pg (27.0-32.0); MCHC 31.3 g/dL (32.0-37.0); MCV 93.9 fL (80.0-97.0); Mean Platelet Volume 10.1 fL (9.5-12.2); Platelet Count 230 10*3/uL (140-440); RBC 3.74 10*6/uL (4.40-5.60); RDW 14.3 % (11.5-14.5); WBC 8.62 10*3/uL (4.50-10.00)
--- NOTE | 2024-12-01 08:48 | XR ---
EXAMINATION TYPE: XR chest 1V portable DATE OF EXAM: 12/01/2024 8:09 AM COMPARISON: 11/30/2024 CLINICAL INDICATION: Male, 84 years old with history of Post pericardial window, , FINDINGS: Pericardial catheter present. Left anterior chest wall pacemaker generator with right atrial and righ t ventricular leads. [id number] cardiomegaly remains. Diffuse interstitial density persists wit h slight improvement. Ongoing small bilateral pleural effusions. Prominent patchy left basilar opacit y persists. Loop recorder device now projects of the left base. IMPRESSION: 1. Similar mild to moderate cardiomegaly. 2. Ongoing CHF. Slight improvement. Following vascular congestion remains. 3. Ongoing small bilateral pleural effusions with adjacent atelectasis and/or consolidation particula rly on the left. [facility], , 12/01/2024 8:46 AM
--- NOTE | 2024-12-01 08:49 | P.PN ---
Subjective Progress Note Date: 12/01/24 Principal diagnosis: Mild to moderate pericardial effusion, increased to large with evidence of early tamponade. Previous medical history of sick sinus syndrome/symptomatic bradyca rdia status post insertion of dual-chamber permanent pacemaker 11/13/2024, nonsustained ventricular tachycardia, nonischemic cardiomyopathy, coronary artery disease, hyperlipidemia, TIA on Plavix as an outpatient, COPD with chronic hypoxic respiratory failure on home oxygen using 2 L nasal cannula at night, depression, obesity, obstructive sleep apnea without home CPAP use, bladder cancer, and previous tobacco dependence POD #2 pericardial window with transesophageal echocardiogram The patient was seen and examined this morning sitting up in a recliner on the cardiac stepdown unit in no acute distress. States pain is mostly controlled on current medication regimen, denies significant shortness of breath. Remains in sinus rhythm, hemodynamically stable. Currently on 3 L nasal cannula with oxygen saturation of the high 90s. Mediastinal/left pleural chest tubes remain. No other new concerns. Objective - Vital Signs Vital signs: Vital Signs Temp 97.3 F L 12/01/24 08:35 Pulse 80 12/01/24 08:35 Resp 18 12/01/24 08:35 BP 104/65 12/01/24 08:35 Pulse Ox 94 L 12/01/24 08:35 FiO2 Intake & Output 11/30/24 12/01/24 12/01/24 18:59 06:59 18:59 Intake Total 500 Output Total 1079 480 Balance -579 -480 Weight 105.1 kg Intake: Oral 500 Output: Chest Tube Drainage 829 80 Chest Tube Left 804 80 Chest Tube Mediastinal 25 0 Urine 250 400 Other: Voiding Method Urinal Urinal # Voids 1 # Bowel Movements 1 1 ABP, PAP, CO, CI - Last Documented Arterial Blood Pressure 123/67 - Exam CONSTITUTIONAL: Appears comfortable, cooperative, no acute distress RESPIRATORY: Lungs sounds diminished bilaterally. Respirations even, nonlabored. Currently on 3 L nasal cannula with oxygen saturation 97%. Able to achieve 1250 mL on incentive spirometry. Strong cough. CARDIOVASCULAR: S1, S2 present. Regular rate and rhythm, sinus rhythm on telemetry. Palpable peripheral pulses bilaterally. No edema present. No calf pain or tenderness noted GASTROINTESTINAL: Abdomen soft, nontender, nondistended. Active bowel sounds present 4 quadrants. Tolerating diet. Positive bowel movement 11/30 GENITOURINARY: Continues to void INTEGUMENTARY: Skin is warm and dry NEUROLOGIC: Cranial nerves II through XII intact MUSKULOSKELETAL: Able to move all extremities, strength equal bilaterally, gait normal PSYCHIATRIC: Alert and oriented to person place and time, appropriate affect, intact judgment and insight INVASIVE LINES AND TUBES: Mediastinal/left pleural chest tubes present to waterseal, no air leaks present. Mediastinal tube with no drainage overnight, 100 mL in the last 24 hours. Left pleural chest tube with 80 mL serosanguineous drainage overnight, 860 mL in the last 24 hours. - Allied health notes Allied health notes reviewed: nursing - Labs CBC & Chem 7: 12/01/24 07:49 11/30/24 02:40 Labs: Abnormal Lab Results - Last 24 Hours (Table) 12/01/24 Range/Units 07:49 RBC 3.74 L (4.40-5.60) 10*6/uL Hgb 11.0 L (13.0-17.0) g/dL Hct 35.1 L (39.6-50.0) % MCHC 31.3 L (32.0-37.0) g/dL Microbiology - Last 24 Hours (Table) 11/29/24 16:54 Gram Stain - Preliminary Pericardial Fluid 11/29/24 16:54 Gram Stain - Preliminary Pericardial Fluid 11/29/24 16:54 Acid Fast Bacilli Smear - Preliminary Pericardial Fluid - Imaging and Cardiology Chest x-ray: image reviewed Assessment and Plan Assessment: Mild to moderate pericardial effusion, increased to large with evidence of early tamponade, status post pericardial window History of sick sinus syndrome/symptomatic bradycardia status post insertion of dual-chamber permanent pacemaker 11/13/2024 Nonsustained ventricular tachycardia Nonischemic cardiomyopathy Coronary artery disease Hyperlipidemia TIA on Plavix as an outpatient COPD with chronic hypoxic respiratory failure on home oxygen using 2 L nasal cannula at night Depression Obesity Obstructive sleep apnea without home CPAP use Bladder cancer Previous tobacco dependence Plan: Will discontinue mediastinal chest tube, continue left pleural chest tube for another 24 hours, monitor output Wean oxygen as tolerated, encourage incentive spirometry use 10 times every hour while awake Increase activity, ambulate as tolerated. PT/OT consulted Encourage oral nutrition Will monitor daily labs and x-rays Plavix can be restarted from cardiothoracic surgery standpoint Medical management of other comorbidities per internal medicine, cardiology, pulmonology More recommendations to follow
[2024-12-01 08:56] LABS: African American GFR (CKD) 73 (>60 ml/min/1.73 sqM); Anion Gap 7 mmol/L; Blood Urea Nitrogen 39 mg/dL (9-20); Carbon Dioxide 20 mmol/L (22-30); Chloride 107 mmol/L (98-107); Glucose 128 mg/dL (74-99); Non-African American GFR(CKD) 63 (>60 ml/min/1.73 sqM); Potassium 4.3 mmol/L (3.5-5.1); Sodium 134 mmol/L (137-145)
--- NOTE | 2024-12-01 11:51 | P.PN ---
Subjective HISTORY OF PRESENT ILLNESS: The patient is an 84-year-old male with multiple comorbid conditions, who is currently admitted to the hospital with increased shortness of breath. Patient recently had pacemaker placed on November [address] Henson. He was found to have a pericardial effusion and therefore underwent pericardial drain placement yeste rday with Dr. Abdi. Patient interviewed and examined resting in the ICU. He states he has signifi cant pain with deep breathing as well as coughing. He does believe his breathing is better now that the drains have been placed. 12/2024 Patient examined this morning at the bedside. He is currently sitting up in the chair. Patient without complaints of chest pain or shortness of breath. Vital signs are stable. PHYSICAL EXAM: VITAL SIGNS: Reviewed. GENERAL: Well-developed in no acute distress. NECK: Supple. No JVD or thyromegaly LUNGS: Respirations even and unlabored. Lungs essentially clear to auscultation bilaterally. HEART: Regular rate and rhythm. S1 and S2 heard. EXTREMITIES: Normal range of motion. No clubbing or cyanosis. Peripheral pulses intact. No lower extremity edema ASSESSMENT: Pericardial effusion Substernal chest pain, pleuritic in nature Left lower lobe pneumonia with evidence of leukocytosis History of sick sinus syndrome status post PPM 11/13/2024 Prior history of TIA Prior history of cardiomyopathy with recovered LVEF PLAN: Continue supportive treatment Discussed pulmonary hygiene along with pain management Further recommendations to be based on clinical course Nurse practitioner note has been reviewed by physician. Signing provider agrees with the documented findings, assessment, and plan of care documented by [employer]GER [employer]SE as a scribe. Objective - Vital Signs Vital signs: Vital Signs Temp 97.3 F L 12/01/24 08:35 Pulse 80 12/01/24 08:35 Resp 18 12/01/24 08:35 BP 104/65 12/01/24 08:35 Pulse Ox 94 L 12/01/24 08:35 FiO2 Intake & Output 11/30/24 12/01/24 12/01/24 18:59 06:59 18:59 Intake Total 500 100 Output Total 1079 480 Balance -579 -480 100 Weight 105.1 kg Intake: Oral 500 100 Output: Chest Tube Drainage 829 80 Chest Tube Left 804 80 Chest Tube Mediastinal 25 0 Urine 250 400 Other: Voiding Method Urinal Urinal # Voids 1 1 # Bowel Movements 1 1 ABP, PAP, CO, CI - Last Documented Arterial Blood Pressure 123/67 - Labs CBC & Chem 7: 12/01/24 07:49 12/01/24 07:49 Labs: Abnormal Lab Results - Last 24 Hours (Table) 12/01/24 12/01/24 Range/Units 07:49 07:49 RBC 3.74 L (4.40-5.60) 10*6/uL Hgb 11.0 L (13.0-17.0) g/dL Hct 35.1 L (39.6-50.0) % MCHC 31.3 L (32.0-37.0) g/dL Sodium 134 L (137-145) mmol/L Carbon Dioxide 20 L (22-30) mmol/L BUN 39 H (9-20) mg/dL Glucose 128 H (74-99) mg/dL Calcium 8.0 L (8.4-10.2) mg/dL Microbiology - Last 24 Hours (Table) 11/29/24 16:54 Gram Stain - Preliminary Pericardial Fluid 11/29/24 16:54 Gram Stain - Preliminary Pericardial Fluid 11/29/24 16:54 Acid Fast Bacilli Smear - Preliminary Pericardial Fluid
--- NOTE | 2024-12-01 14:04 | P.PN ---
Subjective Progress Note Date: 12/01/24 Patient is a 84 year old male with CAD, COPD, AR, former heavy smoker presented to the ED with shortness of breath and chest pain. Patient reports his shortness of breath started yesterday night when he was resting. He states having midsternal chest pain with deep breaths, no radiation of pain. Associated with that he experienced cough for two weeks, with dark blackish sputum production initially, but it is clear now. He denies fever, chills, trauma. Denies any travel history. He uses oxygen intermittently at home, usually at night, at 2L. He mentions having a heart catheterization in the past but denies any stents placed. Denies history of CHF. He reports getting short of breath when walking to and from the restroom at home, but states that its at baseline. He uses a walker at home to ambulate. He quit smoking 13 years ago. Patient recently 11/13/24 underwent insertion of dual-chamber permanent pacemaker for sick sinus syndrome, symptomatic bradycardia with need for beta-td for VT and cardiomyopathy. Denies fever, chills, palpitations, abdominal pain, nausea, vomiting, hematuria, dysuria, hematochezia, melena, headache, slurred speech, numbness, tingling, dizziness, lightheadedness, blurred vision, double vision. ED documentation reviewed. In the ED patient was treated with DuoNeb, ketorolac, lorazepam, Rocephin, 0.9 normal saline, Zithromax. 11/27/2024patient seen and examined at bedside. No events overnight. No complaints of shortness of breath or chest pain this morning. 11/28/2024patient seen and examined at bedside. No events overnight. No new complaints. Continue to wean oxygen as tolerated, currently on 3 L nasal cannula saturating at 96% 11/29/2024patient seen and examined at bedside. No events overnight. Some shortness of breath. Echocardiogram with increasing pericardial effusion evolving tamponade and overlying right ventricular thrombus, patient transferred to ICU. 11/30/2024patient seen and examined at bedside in the ICU. Blood pressure dolly rderline hypotensive overnight. Denies chest pain or shortness of breath. Yesterday patient underwent pericardial window and transesophageal echocardiogram. 12/01/2024patient seen and examined at bedside. Denies chest pain or shortness of breath. s/p transesophageal echocardiogram. Mediastinal/left pleural chest tube in place. Review of systems: Pertinent positives and negatives as discussed in HPI, a complete review of systems was performed and all other systems are negative. Physical examination: Vital signs reviewed General: nontoxic, no distress, appears at stated age Derm: warm, dry, intact Cardiovascular: S1 S2 reg, no murmur Lungs: CTA bilateral, no rhonchi, no rales, no accessory muscle use Abdominal: soft, non-tender to palpation Extremities: No cyanosis, clubbing, or pedal edema. Neuro: Alert, Oriented, Gross neurological examination did not reveal any focal deficits. Today's pertinent findings: LabsWBC 8.6, hemoglobin 11.0, sodium 134, potassium 4.3, bicarb 20, BUN 39, creatinine 1.08 Imagingchest x-ray independently interpreted as similar mild to moderate cardiomegaly, ongoing CHF, slight improvement, ongoing small bilateral pleural effusions Assessment/Plan: Patient is a 84 year old male with CAD, COPD, AR presented to the ED with shortness of breath and chest pain #. Atypical chest pain #. CAD S/p cardiac catheterization #History of sick sinus syndrome status post PPM 11/13/2024 #Pericardial effusion, s/p pericardial window, 500 mL of bloody fluid drained from pericardial space Initial troponin I <0.012 Continue home meds Aspirin, statin, discontinue Plavix Continue telemetry monitoring Echocardiogram with mild to moderate pericardial effusion, globally decreased co ntractility, LVEF 40% Follow-up echocardiogram with increasing pericardial effusion evolving tamponade and overlying right ventricular thrombus, transferred to ICU Continue colchicine 0.6 mg twice daily Cardiology following CT surgery following, s/p pericardial window, 500 mL of bloody fluid drained from pericardial space, chest tube in place #. Community acquired pneumonia #. Chronic hypoxic respiratory failure #. COPD (on home oxygen 2L PRN) Initial chest x-ray shows bibasilar subsegmental changes, left greater than right are presumed asymmetric edema, coexisting infection is difficult to exclude in this region, no large pleural effusion or pneumothorax Completed azithromycin 500 mg IVPB for total of 3 days and Rocephin 2 g IVPB every 24 hours for total of 5 days Continue Ventolin and Symbicort, Spiriva Wean oxygen as tolerated Blood culture, sputum culture pending. Legionella antigen negative #. Normocytic anemia Obtain iron studies iron saturation 7.83%, LDH 271, retic count 3.2%. vit B12, folate pending Monitor CBC Transfuse for Hb<7 #. Mild hyponatremia Monitor BMP Discontinue IV fluid Chronic: #. Sick sinus syndrome S/p dual chamber permanent pacemaker implantation 11/13/24 #. AR not on CPAP, cannot tolerate #. History of TIA #. Anxiety/depression #. Restless leg syndrome Resume home meds once verified by the pharmacy F: None E: Replete as required N: Heart healthy diet A: Bedrest DVT prophylaxis: Lovenox 40 mg SQ daily CODE STATUS: FULL CODE Discussed with: Patient Anticipated discharge place: Pending clinical course Joe Hare MD Internal Medicine Resident, PGY1 Dictation was produced using [employer] dictation software. please excuse any grammatical, word or spelling errors. I saw and evaluated the patient during the nava and critical portions of this encounter, and discussed the case in detail with the resident author of this note, I agree with the Assessment and Plan, and my changes, if any, are highlighted in blue. Objective - Vital Signs Vital signs: Vital Signs Temp 97.9 F 12/01/24 03:09 Pulse 75 12/01/24 03:09 Resp 20 12/01/24 06:28 BP 107/66 12/01/24 03:09 Pulse Ox 97 12/01/24 06:28 FiO2 Intake & Output 11/30/24 12/01/24 12/01/24 18:59 06:59 18:59 Intake Total 500 Output Total 1079 480 Balance -579 -480 Weight 105.1 kg Intake: Oral 500 Output: Chest Tube Drainage 829 80 Chest Tube Left 804 80 Chest Tube Mediastinal 25 0 Urine 250 400 Other: Voiding Method Urinal Urinal # Voids 1 # Bowel Movements 1 1 ABP, PAP, CO, CI - Last Documented Arterial Blood Pressure 123/67 - Labs CBC & Chem 7: 12/01/24 07:49 12/01/24 07:49 Labs: Microbiology - Last 24 Hours (Table) 11/29/24 16:54 Gram Stain - Preliminary Pericardial Fluid 11/29/24 16:54 Gram Stain - Preliminary Pericardial Fluid 11/29/24 16:54 Acid Fast Bacilli Smear - Preliminary Pericardial Fluid
[2024-12-01 14:21] VITALS: BMI 32.3
--- NOTE | 2024-12-01 19:11 | P.PN ---
Subjective Progress Note Date: 12/01/24 This is a 84-year-old male patient who got transferred to the intensive care un it for hemodynamically unstable pericardial effusion with early signs of tamponade. The patient has history of sick sinus syndrome and symptomatic bradycardia and the patient is post dual-chamber pacemaker insertion that was performed on 11/13/2024. He also has history of nonsustained VT, nonischemic cardiomyopathy, hyperlipidemia, COPD and chronic hypoxic respiratory failure in a patient artery dependent at 2 L/min nasal cannula, coronary artery disease and obstructive sleep apnea for which the patient is not utilizing any form of CPAP therapy at this point. He also has previous history of bladder cancer and previous history of smoking. The patient is quit smoking approximate 13 years ago. The patient got transferred to the intensive care unit and the patient is being taken to the operating room for a pericardial window. The patient had an echocardiogram that showed increasing pericardial effusion with evolving tamponade and an overlying right ventricular thrombus. His most recent BP is 109/76. Heart rate is around 78 with respiration of 22. Pulse ox is 96% on 3 L of oxygen by nasal cannula. Chest x-ray from 11/27/2024 showed increased bilateral stitcher markings and more focal left basilar opacity and small bilateral pleural effusion. The patient also had a pacemaker generator over the left anterior chest area. Most recent echocardiogram from 11/29/2024 showed a large pericardial effusion with signs of tamponade. Cardiothoracic surgery is aware. The WBC count is at 12.5 with hemoglobin 9.1 and a platelet count of 229. BUN 25 with a creatinine of 1.1 and a sodium levels at 133. Serum iron is at 26 and the patient has underlying iron deficiency. Echocardiogram also showed an ejection fraction of 40% without any significant valvular abnormalities. On 11/30/2024, the patient is being seen for a follow-up. The patient was taken to the operating room yesterday and the patient underwent a pericardial window and the patient is currently postop day #1. Noted the patient had an immediate drainage of 500 cc of bloody fluid and this was drained from the pericardial space. The patient has a pericardial tube in place for now and another 100 cc of output was noted since surgery. The patient also has a left pleural chest tube and the total amount of output is 140 cc since surgery. The chest x-ray from today shows mild to moderate cardiomegaly, ongoing CHF with increased interstitial pulmonary markings. Small to moderate-sized left and small right-sided pleural effusion noted. The patient has a pacemaker over the left anterior chest. The pericardial tube is not adequately seen on today's chest x- ray. Otherwise, the patient is doing well. The patient is hemodynamically stable. The white cell count is at 9.1 with a hemoglobin 10.9 and a platelet count of 219. Sodium is 134, BUN is 34 with a creatinine of 1.05. Potassium level is at 5. Serum bicarb is at 20. Cardiac rhythm is sinus. The patient remains on colchicine. The patient remains on Toradol for pain control. He remains on Spiriva and Ventolin rescue inhaler in last 28 basis. No other significant events overnight. No significant cardiac arrhythmias. The patient is hemodynamically stable. On 12/01/2024, the patient is being seen for a follow-up. The patient is doing well and the patient is postop day #2 following a pericardial window. For now, the patient is a pericardial tube and a left pleural chest tube in place. The patient is stable. He is currently on liters of oxygen by nasal cannula with pulse ox of 97%. Using incentive spirometer. Output from the tubes were noted and the patient has a total of 100 cc of output from the pericardial tube over the past 24 hours. As for the left pleural chest tube, this has produced approximately 860 cc over the past 24 hours. Repeat chest x-ray from today shows small to moderate size cardiomegaly along with CHF and pulm vessel congestion. The patient also has atelectatic changes specifically in the left lung base. No chest pain. The white cell count 8.6 with a hemoglobin 11 and a platelet count of 230. BUN 39 with a creatinine of 1.08. Sodium levels at 134. Remains on Symbicort and Spiriva and Ventolin on a as needed basis. Remains on metoprolol 25 mg p.o. daily. The patient is also on colchicine 0.6 mg p.o. on a daily basis. Objective - Vital Signs Vital signs: Vital Signs Temp 97.3 F L 12/01/24 08:35 Pulse 87 12/01/24 16:58 Resp 18 12/01/24 16:58 BP 106/76 12/01/24 16:58 Pulse Ox 96 12/01/24 16:58 FiO2 Intake & Output 12/01/24 12/01/24 12/02/24 06:59 18:59 06:59 Intake Total 300 Output Total 480 Balance -480 300 Weight 105.1 kg 105.1 kg Intake: Oral 300 Output: Chest Tube Drainage 80 Chest Tube Left 80 Chest Tube Mediastinal 0 Urine 400 Other: Voiding Method Urinal # Voids 1 1 # Bowel Movements 1 ABP, PAP, CO, CI - Last Documented Arterial Blood Pressure 123/67 - Exam CONSTITUTIONAL: Appears comfortable, cooperative, no acute distress RESPIRATORY: Lungs sounds diminished bilaterally. Respirations even, nonlabored. Currently on 3 L nasal cannula with oxygen saturation 97%. Able to achieve 1250 mL on incentive spirometry. Strong cough. CARDIOVASCULAR: S1, S2 present. Regular rate and rhythm, sinus rhythm on telemetry. Palpable peripheral pulses bilaterally. No edema present. No calf pain or tenderness noted GASTROINTESTINAL: Abdomen soft, nontender, nondistended. Active bowel sounds present 4 quadrants. Tolerating diet. Positive bowel movement 11/30 GENITOURINARY: Continues to void INTEGUMENTARY: Skin is warm and dry NEUROLOGIC: Cranial nerves II through XII intact MUSKULOSKELETAL: Able to move all extremities, strength equal bilaterally, gait normal PSYCHIATRIC: Alert and oriented to person place and time, appropriate affect, intact judgment and insight INVASIVE LINES AND TUBES: Mediastinal/left pleural chest tubes present to waterseal, no air leaks present. Mediastinal tube with no drainage overnight, 100 mL in the last 24 hours. Left pleural chest tube with 80 mL serosanguineous drainage overnight, 860 mL in the last 24 hours. - Labs CBC & Chem 7: 12/01/24 07:49 12/01/24 07:49 Labs: Abnormal Lab Results - Last 24 Hours (Table) 12/01/24 12/01/24 Range/Units 07:49 07:49 RBC 3.74 L (4.40-5.60) 10*6/uL Hgb 11.0 L (13.0-17.0) g/dL Hct 35.1 L (39.6-50.0) % MCHC 31.3 L (32.0-37.0) g/dL Sodium 134 L (137-145) mmol/L Carbon Dioxide 20 L (22-30) mmol/L BUN 39 H (9-20) mg/dL Glucose 128 H (74-99) mg/dL Calcium 8.0 L (8.4-10.2) mg/dL Microbiology - Last 24 Hours (Table) 11/29/24 16:54 Gram Stain - Preliminary Pericardial Fluid Tissue Culture - Preliminary 11/29/24 16:54 Gram Stain - Preliminary Pericardial Fluid Body Fluid Culture - Preliminary 11/26/24 04:14 Blood Culture - Final Blood Assessment and Plan Plan: Large pericardial effusion with signs of cardiac tamponade. The patient is postop day # 2 post pericardial window. Pericardial tube is in place. Output is being noted and monitored. Cardiology and cardiothoracic surgery is on the case. Hemodynamically stable. No pressors for now. Rule out viral pleuropericarditis. Rule out complication of pacemaker insertion. Left-sided pleural effusion post left-sided chest tube and insertion and output remains in the order of 800 cc chest tube insertion Acute hypoxic respiratory failure, likely secondary to underlying CHF and the patient has some small bilateral pleural effusion effusions and atelectatic changes lung bases. Currently on 3 L of oxygen by nasal cannula. Sick sinus syndrome with symptomatic bradycardia status post dual-chamber pacemaker insertion on 11/13/2024 CHF with an ejection fraction of 40% Previous history of nonsustained VT Coronary artery disease COPD with chronic hypoxic respiratory failure maintained on oxygen 2 L/min nasal cannula Obstructive sleep apnea, not receiving any CPAP therapy Previous history of bladder cancer History of TIA, maintained on Plavix on outpatient basis Former smoker Iron deficiency anemia Left-sided pleural effusion/small Plan The patient has been moved to a medical floor with telemetry monitoring. The patient is currently on 3 Suboxone by nasal cannula. Using incentive spirometer. Monitor output from the pericardial tube and the chest tube and the tube will be kept in place for another 24 hours. Cardiothoracic surgery is on the case Hemodynamically stable Continue colchicine Toradol for pain control Continue Symbicort/Spiriva and Ventolin rescue inhaler on as-needed basis Albuterol nebulizer treatments as needed, 4 times a day Lovenox for DVT prophylaxis 40 mg subcu Will continue to follow and make further recommendations based on the progress.
--- NOTE | 2024-12-02 07:30 | P.PN ---
Subjective Progress Note Date: 12/02/24 Principal diagnosis: Mild to moderate pericardial effusion, increased to large with evidence of early tamponade. Previous medical history of sick sinus syndrome/symptomatic bradyca rdia status post insertion of dual-chamber permanent pacemaker 11/13/2024, nonsustained ventricular tachycardia, nonischemic cardiomyopathy, coronary artery disease, hyperlipidemia, TIA on Plavix as an outpatient, COPD with chronic hypoxic respiratory failure on home oxygen using 2 L nasal cannula at night, depression, obesity, obstructive sleep apnea without home CPAP use, bladder cancer, and previous tobacco dependence POD #3 pericardial window with transesophageal echocardiogram The patient was seen and examined this morning sitting up in a recliner on the cardiac stepdown unit in no acute distress. States pain is controlled on current medication regimen, denies significant shortness of breath. Remains in sinus rhythm, hemodynamically stable. Currently on 2 L nasal cannula with oxyge n saturation of the high 90s. Mediastinal/left pleural chest tubes remain. Patient looks clinically better than he has in the last couple of days. No other new concerns. Objective - Vital Signs Vital signs: Vital Signs Temp 97.4 F L 12/02/24 03:09 Pulse 82 12/02/24 03:09 Resp 18 12/02/24 03:09 BP 95/61 12/02/24 03:09 Pulse Ox 96 12/02/24 03:09 FiO2 Intake & Output 12/01/24 12/02/24 12/02/24 18:59 06:59 18:59 Intake Total 300 Output Total 500 Balance 300 -500 Weight 105.1 kg 99.8 kg Intake: Oral 300 Output: Chest Tube Drainage 0 Chest Tube Left 0 Chest Tube Mediastinal 0 Urine 500 Other: Voiding Method Urinal # Voids 1 1 # Bowel Movements 1 ABP, PAP, CO, CI - Last Documented Arterial Blood Pressure 123/67 - Exam CONSTITUTIONAL: Appears comfortable, cooperative, no acute distress RESPIRATORY: Lungs sounds diminished in the bases bilaterally. Respirations even, nonlabored. Currently on 2 L nasal cannula with oxygen saturation 96%. Able to achieve 1250 mL on incentive spirometry. Strong cough. CARDIOVASCULAR: S1, S2 present. Regular rate and rhythm, sinus rhythm on telemetry. Palpable peripheral pulses bilaterally. No edema present. No calf pain or tenderness noted GASTROINTESTINAL: Abdomen soft, nontender, nondistended. Active bowel sounds present 4 quadrants. Tolerating diet. Positive bowel movement 12/01 GENITOURINARY: Continues to void INTEGUMENTARY: Skin is warm and dry NEUROLOGIC: Cranial nerves II through XII intact MUSKULOSKELETAL: Able to move all extremities, strength equal bilaterally, gait normal PSYCHIATRIC: Alert and oriented to person place and time, appropriate affect, intact judgment and insight INVASIVE LINES AND TUBES: Mediastinal/left pleural chest tubes present to [place] [facility], no air leaks present. Mediastinal tube with no drainage in the last 24 hours. Left pleural chest tube with 20 mL serosanguineous drainage in the last 24 hours. - Allied health notes Allied health notes reviewed: nursing - Labs CBC & Chem 7: 12/01/24 07:49 12/01/24 07:49 Labs: Abnormal Lab Results - Last 24 Hours (Table) 12/01/24 12/01/24 Range/Units 07:49 07:49 RBC 3.74 L (4.40-5.60) 10*6/uL Hgb 11.0 L (13.0-17.0) g/dL Hct 35.1 L (39.6-50.0) % MCHC 31.3 L (32.0-37.0) g/dL Sodium 134 L (137-145) mmol/L Carbon Dioxide 20 L (22-30) mmol/L BUN 39 H (9-20) mg/dL Glucose 128 H (74-99) mg/dL Calcium 8.0 L (8.4-10.2) mg/dL Microbiology - Last 24 Hours (Table) 11/29/24 16:54 Gram Stain - Preliminary Pericardial Fluid Tissue Culture - Preliminary 11/29/24 16:54 Gram Stain - Preliminary Pericardial Fluid Body Fluid Culture - Preliminary 11/26/24 04:14 Blood Culture - Final Blood - Imaging and Cardiology Chest x-ray: image reviewed Assessment and Plan Assessment: Mild to moderate pericardial effusion, increased to large with evidence of early tamponade, status post pericardial window History of sick sinus syndrome/symptomatic bradycardia status post insertion of dual-chamber permanent pacemaker 11/13/2024 Nonsustained ventricular tachycardia Nonischemic cardiomyopathy Coronary artery disease Hyperlipidemia TIA on Plavix as an outpatient COPD with chronic hypoxic respiratory failure on home oxygen using 2 L nasal cannula at night Depression Obesity Obstructive sleep apnea without home CPAP use Bladder cancer Previous tobacco dependence Plan: Will discontinue mediastinal and pleural chest tube Wean oxygen as tolerated, encourage incentive spirometry use 10 times every hour while awake Increase activity, ambulate as tolerated. PT/OT consulted Encourage oral nutrition Repeat x-ray in the morning Plavix can be restarted from cardiothoracic surgery standpoint Medical management of other comorbidities per internal medicine, cardiology, pulmonology More recommendations to follow
--- NOTE | 2024-12-02 07:42 | XR ---
EXAMINATION TYPE: XR chest 1V portable DATE OF EXAM: 12/02/2024 6:58 AM COMPARISON: Chest radiograph from one day prior. CLINICAL INDICATION: Male, 84 years old with history of effusion; [facility] TECHNIQUE: XR chest 1V portable Frontal view of the chest. FINDINGS: Lungs/Pleura: No evidence of focal consolidation or pneumothorax. Blunting of the costophrenic angles is present. Pulmonary vascularity: Unremarkable. Heart/mediastinum: Cardiomediastinal silhouette is enlarged. Two lead cardiac conduction device overl faiza the left hemithorax with lead tips projecting over the right ventricle and right atrium. A loop recorder projects over the left thorax over the heart. Musculoskeletal: No acute osseous pathology. Other findings: Left thoracotomy tube is felt to be present. No pneumothorax. IMPRESSION: Cardiomegaly, pulmonary vascular congestion and bilateral pleural effusions. Correlate with BNP for c ongestive heart failure. [facility], , 12/02/2024 7:40 AM
[2024-12-02 10:00] LABS: African American GFR (CKD) 88 (>60 ml/min/1.73 sqM); Anion Gap 9 mmol/L; Blood Urea Nitrogen 28 mg/dL (9-20); Calcium 8.5 mg/dL (8.4-10.2); Carbon Dioxide 24 mmol/L (22-30); Chloride 103 mmol/L (98-107); Glucose 94 mg/dL (74-99); Non-African American GFR(CKD) 76 (>60 ml/min/1.73 sqM); Potassium 4.4 mmol/L (3.5-5.1); Sodium 136 mmol/L (137-145)
--- NOTE | 2024-12-02 10:13 | P.PN ---
Subjective Progress Note Date: 12/02/24 This is Hemanth Niño NP, I'm dictating on behalf of Dr. Cottrell's H&P and A&P. Patient was interviewed and examined. Patient is a pleasant 84-year-old male who was admitted to the hospital with increased shortness of breath. Patient had recently had a pacemaker placed on November [address] Henson, and was found to have a pericardial effusion, and underwent pericardial drain placement with Dr. Abdi. Patient had the drain removed this morning. He reports that he is feeling okay today. He has no further shortness of breath. Reports mild pain where the tube was inserted. GENERAL: Well-appearing, well-nourished and in no acute distress. NECK: Supple without JVD or thyromegaly. LUNGS: Breath sounds clear to auscultation bilaterally. Respiration equal and unlabored. No wheezes, rales or rhonchi. HEART: Regular rate and rhythm without murmurs, rubs or gallops. S1 and S2 heard. EXTREMITIES: Normal range of motion, no edema. No clubbing or cyanosis. Peripheral pulses intact and strong. VITALS: Temp 97.2, pulse 85, respirations 18, blood pressure 90/63, O2 saturation 95% on 2 L TELEMETRY: Paced rhythm LABS: Sodium 136, potassium 4.4, chloride 103, BUN 28, creatinine 0.93, calcium 8.5 IMPRESSION: 1. Pericardial effusion 2. Substernal chest pain, pleuritic in nature 3. Left lower lobe pneumonia with evidence of leukocytosis 4. History of sick sinus syndrome status post PPM 11/13/2024 5. Prior history of TIA 6. Prior history of cardiomyopathy with recovered LVEF PLAN: Pericardial chest tube has been removed today. Will order limited echo to evaluate for pericardial effusion. Pacemaker is functioning appropriately. Further recommendations based on patient's clinical course. Objective - Vital Signs Vital signs: Vital Signs Temp 97.2 F L 12/02/24 08:32 Pulse 85 12/02/24 08:32 Resp 18 12/02/24 08:32 BP 90/63 12/02/24 08:32 Pulse Ox 97 12/02/24 09:29 FiO2 Intake & Output 12/01/24 12/02/24 12/02/24 18:59 06:59 18:59 Intake Total 300 240 Output Total 500 Balance 300 -500 240 Weight 105.1 kg 99.8 kg Intake: Oral 300 240 Output: Chest Tube Drainage 0 Chest Tube Left 0 Chest Tube Mediastinal 0 Urine 500 Other: Voiding Method Urinal # Voids 1 1 # Bowel Movements 1 ABP, PAP, CO, CI - Last Documented Arterial Blood Pressure 123/67 - Labs CBC & Chem 7: 12/01/24 07:49 12/02/24 07:53 Labs: Abnormal Lab Results - Last 24 Hours (Table) 12/02/24 Range/Units 07:53 Sodium 136 L (137-145) mmol/L BUN 28 H (9-20) mg/dL Microbiology - Last 24 Hours (Table) 11/29/24 16:54 Gram Stain - Preliminary Pericardial Fluid Tissue Culture - Preliminary 11/29/24 16:54 Gram Stain - Preliminary Pericardial Fluid Body Fluid Culture - Preliminary 11/26/24 04:14 Blood Culture - Final Blood
--- NOTE | 2024-12-02 14:00 | P.PN ---
Subjective Progress Note Date: 12/02/24 Patient is a 84 year old male with CAD, COPD, AR, former heavy smoker presented to the ED with shortness of breath and chest pain. Patient reports his shortness of breath started yesterday night when he was resting. He states having midsternal chest pain with deep breaths, no radiation of pain. Associated with that he experienced cough for two weeks, with dark blackish sputum production initially, but it is clear now. He denies fever, chills, trauma. Denies any travel history. He uses oxygen intermittently at home, usually at night, at 2L. He mentions having a heart catheterization in the past but denies any stents placed. Denies history of CHF. He reports getting short of breath when walking to and from the restroom at home, but states that its at baseline. He uses a walker at home to ambulate. He quit smoking 13 years ago. Patient recently 11/13/24 underwent insertion of dual-chamber permanent pacemaker for sick sinus syndrome, symptomatic bradycardia with need for beta-td for VT and cardiomyopathy. Denies fever, chills, palpitations, abdominal pain, nausea, vomiting, hematuria, dysuria, hematochezia, melena, headache, slurred speech, numbness, tingling, dizziness, lightheadedness, blurred vision, double vision. ED documentation reviewed. In the ED patient was treated with DuoNeb, ketorolac, lorazepam, Rocephin, 0.9 normal saline, Zithromax. 11/27/2024patient seen and examined at bedside. No events overnight. No complaints of shortness of breath or chest pain this morning. 11/28/2024patient seen and examined at bedside. No events overnight. No new complaints. Continue to wean oxygen as tolerated, currently on 3 L nasal cannula saturating at 96% 11/29/2024patient seen and examined at bedside. No events overnight. Some shortness of breath. Echocardiogram with increasing pericardial effusion evolving tamponade and overlying right ventricular thrombus, patient transferred to ICU. 11/30/2024patient seen and examined at bedside in the ICU. Blood pressure dolly rderline hypotensive overnight. Denies chest pain or shortness of breath. Yesterday patient underwent pericardial window and transesophageal echocardiogram. 12/01/2024patient seen and examined at bedside. Denies chest pain or shortness of breath. s/p transesophageal echocardiogram. Mediastinal/left pleural chest tube in place. 12/02/2024-Pt reports overall improvement. C/o dry cough. Added tessalon perles. Tubes have been removed. Review of systems: Pertinent positives and negatives as discussed in HPI, a complete review of systems was performed and all other systems are negative. Physical examination: Vital signs reviewed General: nontoxic, no distress, appears at stated age Derm: warm, dry, intact Cardiovascular: S1 S2 reg, no murmur Lungs: CTA bilateral, no rhonchi, no rales, no accessory muscle use Abdominal: soft, non-tender to palpation Extremities: No cyanosis, clubbing, or pedal edema. Neuro: Alert, Oriented, Gross neurological examination did not reveal any focal deficits. Today's pertinent findings: LabsWBC 8.6, hemoglobin 11.0, sodium 134, potassium 4.3, bicarb 20, BUN 39, creatinine 1.08 Imagingchest x-ray independently interpreted as similar mild to moderate cardiomegaly, ongoing CHF, slight improvement, ongoing small bilateral pleural effusions Assessment/Plan: Patient is a 84 year old male with CAD, COPD, AR presented to the ED with shortness of breath and chest pain #. Atypical chest pain #. CAD S/p cardiac catheterization #History of sick sinus syndrome status post PPM 11/13/2024 #Pericardial effusion, s/p pericardial window, 500 mL of bloody fluid drained from pericardial space Initial troponin I <0.012 Continue home meds Aspirin, statin, discontinue Plavix Continue telemetry monitoring Echocardiogram with mild to moderate pericardial effusion, globally decreased contractility, LVEF 40% Follow-up echocardiogram with increasing pericardial effusion evolving tamponade and overlying right ventricular thrombus, transferred to ICU Continue colchicine 0.6 mg twice daily Cardiology following CT surgery following, s/p pericardial window, 500 mL of bloody fluid drained from pericardial space, chest tube in place #. Community acquired pneumonia #. Chronic hypoxic respiratory failure #. COPD (on home oxygen 2L PRN) Initial chest x-ray shows bibasilar subsegmental changes, left greater than right are presumed asymmetric edema, coexisting infection is difficult to exclude in this region, no large pleural effusion or pneumothorax Completed azithromycin 500 mg IVPB for total of 3 days and Rocephin 2 g IVPB every 24 hours for total of 5 days Continue Ventolin and Symbicort, Spiriva Wean oxygen as tolerated Blood culture, sputum culture pending. Legionella antigen negative #. Normocytic anemia Obtain iron studies iron saturation 7.83%, LDH 271, retic count 3.2%. vit B12, folate pending Monitor CBC Transfuse for Hb<7 #. Mild hyponatremia Monitor BMP Discontinue IV fluid Chronic: #. Sick sinus syndrome S/p dual chamber permanent pacemaker implantation 11/13/24 #. AR not on CPAP, cannot tolerate #. History of TIA #. Anxiety/depression #. Restless leg syndrome Resume home meds once verified by the pharmacy F: None E: Replete as required N: Heart healthy diet A: Bedrest DVT prophylaxis: Lovenox 40 mg SQ daily CODE STATUS: FULL CODE Discussed with: Patient Anticipated discharge place: Pending clinical course Objective - Vital Signs Vital signs: Vital Signs Temp 97.7 F 12/02/24 12:10 Pulse 86 12/02/24 12:10 Resp 18 12/02/24 12:10 BP 109/64 12/02/24 12:10 Pulse Ox 95 12/02/24 12:10 FiO2 Intake & Output 12/01/24 12/02/24 12/02/24 18:59 06:59 18:59 Intake Total 300 240 Output Total 500 300 Balance 300 -500 -60 Weight 105.1 kg 99.8 kg Intake: Oral 300 240 Output: Chest Tube Drainage 0 Chest Tube Left 0 Chest Tube Mediastinal 0 Urine 500 300 Other: Voiding Method Urinal Urinal # Voids 1 1 1 # Bowel Movements 1 1 ABP, PAP, CO, CI - Last Documented Arterial Blood Pressure 123/67 - Labs CBC & Chem 7: 12/01/24 07:49 12/02/24 07:53 Labs: Abnormal Lab Results - Last 24 Hours (Table) 12/02/24 Range/Units 07:53 Sodium 136 L (137-145) mmol/L BUN 28 H (9-20) mg/dL Microbiology - Last 24 Hours (Table) 11/29/24 16:54 Gram Stain - Preliminary Pericardial Fluid Tissue Culture - Preliminary 11/29/24 16:54 Gram Stain - Preliminary Pericardial Fluid Body Fluid Culture - Preliminary 11/26/24 04:14 Blood Culture - Final Blood
--- NOTE | 2024-12-02 16:31 | P.PN ---
Subjective Progress Note Date: 12/02/24 This is a 84-year-old male patient who got transferred to the intensive care un it for hemodynamically unstable pericardial effusion with early signs of tamponade. The patient has history of sick sinus syndrome and symptomatic bradycardia and the patient is post dual-chamber pacemaker insertion that was performed on 11/13/2024. He also has history of nonsustained VT, nonischemic cardiomyopathy, hyperlipidemia, COPD and chronic hypoxic respiratory failure in a patient artery dependent at 2 L/min nasal cannula, coronary artery disease and obstructive sleep apnea for which the patient is not utilizing any form of CPAP therapy at this point. He also has previous history of bladder cancer and previous history of smoking. The patient is quit smoking approximate 13 years ago. The patient got transferred to the intensive care unit and the patient is being taken to the operating room for a pericardial window. The patient had an echocardiogram that showed increasing pericardial effusion with evolving tamponade and an overlying right ventricular thrombus. His most recent BP is 109/76. Heart rate is around 78 with respiration of 22. Pulse ox is 96% on 3 L of oxygen by nasal cannula. Chest x-ray from 11/27/2024 showed increased bilateral stitcher markings and more focal left basilar opacity and small bilateral pleural effusion. The patient also had a pacemaker generator over the left anterior chest area. Most recent echocardiogram from 11/29/2024 showed a large pericardial effusion with signs of tamponade. Cardiothoracic surgery is aware. The WBC count is at 12.5 with hemoglobin 9.1 and a platelet count of 229. BUN 25 with a creatinine of 1.1 and a sodium levels at 133. Serum iron is at 26 and the patient has underlying iron deficiency. Echocardiogram also showed an ejection fraction of 40% without any significant valvular abnormalities. On 11/30/2024, the patient is being seen for a follow-up. The patient was taken to the operating room yesterday and the patient underwent a pericardial window and the patient is currently postop day #1. Noted the patient had an immediate drainage of 500 cc of bloody fluid and this was drained from the pericardial space. The patient has a pericardial tube in place for now and another 100 cc of output was noted since surgery. The patient also has a left pleural chest tube and the total amount of output is 140 cc since surgery. The chest x-ray from today shows mild to moderate cardiomegaly, ongoing CHF with increased interstitial pulmonary markings. Small to moderate-sized left and small right-sided pleural effusion noted. The patient has a pacemaker over the left anterior chest. The pericardial tube is not adequately seen on today's chest x- ray. Otherwise, the patient is doing well. The patient is hemodynamically stable. The white cell count is at 9.1 with a hemoglobin 10.9 and a platelet count of 219. Sodium is 134, BUN is 34 with a creatinine of 1.05. Potassium level is at 5. Serum bicarb is at 20. Cardiac rhythm is sinus. The patient remains on colchicine. The patient remains on Toradol for pain control. He remains on Spiriva and Ventolin rescue inhaler in last 28 basis. No other significant events overnight. No significant cardiac arrhythmias. The patient is hemodynamically stable. On 12/01/2024, the patient is being seen for a follow-up. The patient is doing well and the patient is postop day #2 following a pericardial window. For now, the patient is a pericardial tube and a left pleural chest tube in place. The patient is stable. He is currently on liters of oxygen by nasal cannula with pulse ox of 97%. Using incentive spirometer. Output from the tubes were noted and the patient has a total of 100 cc of output from the pericardial tube over the past 24 hours. As for the left pleural chest tube, this has produced approximately 860 cc over the past 24 hours. Repeat chest x-ray from today shows small to moderate size cardiomegaly along with CHF and pulm vessel congestion. The patient also has atelectatic changes specifically in the left lung base. No chest pain. The white cell count 8.6 with a hemoglobin 11 and a platelet count of 230. BUN 39 with a creatinine of 1.08. Sodium levels at 134. Remains on Symbicort and Spiriva and Ventolin on a as needed basis. Remains on metoprolol 25 mg p.o. daily. The patient is also on colchicine 0.6 mg p.o. on a daily basis. On 12/02/2024, the patient is being seen for a follow-up. The patient is doing well. No specific complaints. On today's evaluation, the patient is on a telemetry unit and the patient was discharged from the intensive care unit. The patient came to the he is on 2 L of oxygen by nasal cannula. The mediastinal and left pleural chest tubes are still in place. No significant chest pain. No pleurisy. No hemoptysis. Output from the tubes were noted in the left lower chest tube has produced 20 cc over the past 24 hours and the output from the pericardial tubes have been minimal. The patient using incentive spirometer, pulling approximately 1.2 L. BUN is 28 with a creatinine of 0.9. Sodium level is at 136 and potassium level is at 4.4. Remains on better number of treatments as needed, remains on Symbicort and Spiriva, Lovenox for DVT prophylaxis and the patient is also on colchicine and metoprolol. Objective - Vital Signs Vital signs: Vital Signs Temp 97.2 F L 12/02/24 08:32 Pulse 85 12/02/24 08:32 Resp 18 12/02/24 08:32 BP 90/63 12/02/24 08:32 Pulse Ox 97 12/02/24 09:29 FiO2 Intake & Output 12/01/24 12/02/24 12/02/24 18:59 06:59 18:59 Intake Total 300 240 Output Total 500 Balance 300 -500 240 Weight 105.1 kg 99.8 kg Intake: Oral 300 240 Output: Chest Tube Drainage 0 Chest Tube Left 0 Chest Tube Mediastinal 0 Urine 500 Other: Voiding Method Urinal Urinal # Voids 1 1 # Bowel Movements 1 ABP, PAP, CO, CI - Last Documented Arterial Blood Pressure 123/67 - Exam CONSTITUTIONAL: Appears comfortable, cooperative, no acute distress RESPIRATORY: Lungs sounds diminished in the bases bilaterally. Respirations even, nonlabored. Currently on 2 L nasal cannula with oxygen saturation 96%. Able to achieve 1250 mL on incentive spirometry. Strong cough. CARDIOVASCULAR: S1, S2 present. Regular rate and rhythm, sinus rhythm on telemetry. Palpable peripheral pulses bilaterally. No edema present. No calf pain or tenderness noted GASTROINTESTINAL: Abdomen soft, nontender, nondistended. Active bowel sounds present 4 quadrants. Tolerating diet. Positive bowel movement 12/01 GENITOURINARY: Continues to void INTEGUMENTARY: Skin is warm and dry NEUROLOGIC: Cranial nerves II through XII intact MUSKULOSKELETAL: Able to move all extremities, strength equal bilaterally, gait normal PSYCHIATRIC: Alert and oriented to person place and time, appropriate affect, intact judgment and insight INVASIVE LINES AND TUBES: Mediastinal/left pleural chest tubes present to waterseal, no air leaks present. Mediastinal tube with no drainage in the last 24 hours. Left pleural chest tube with 20 mL serosanguineous drainage in the last 24 hours. - Labs CBC & Chem 7: 12/01/24 07:49 12/02/24 07:53 Labs: Abnormal Lab Results - Last 24 Hours (Table) 12/02/24 Range/Units 07:53 Sodium 136 L (137-145) mmol/L BUN 28 H (9-20) mg/dL Microbiology - Last 24 Hours (Table) 11/29/24 16:54 Gram Stain - Preliminary Pericardial Fluid Tissue Culture - Preliminary 11/29/24 16:54 Gram Stain - Preliminary Pericardial Fluid Body Fluid Culture - Preliminary 11/26/24 04:14 Blood Culture - Final Blood Assessment and Plan Plan: Large pericardial effusion with signs of cardiac tamponade. The patient is postop day #3 post pericardial window. Pericardial tube is in place. Output is being noted and monitored. Cardiology and cardiothoracic surgery is on the case. Hemodynamically stable. No pressors for now. Rule out viral pleuropericarditis. Rule out complication of pacemaker insertion. The pericardial tube is to be removed today Left-sided pleural effusion post left-sided chest tube and insertion and output is minimal and the chest tube was to be removed today Acute hypoxic respiratory failure, likely secondary to underlying CHF and the patient has some small bilateral pleural effusion effusions and atelectatic changes lung bases. Currently on 2 L of oxygen by nasal cannula. Sick sinus syndrome with symptomatic bradycardia status post dual-chamber pacemaker insertion on 11/13/2024 CHF with an ejection fraction of 40% Previous history of nonsustained VT Coronary artery disease COPD with chronic hypoxic respiratory failure maintained on oxygen 2 L/min nasal cannula Obstructive sleep apnea, not receiving any CPAP therapy Previous history of bladder cancer History of TIA, maintained on Plavix on outpatient basis Former smoker Iron deficiency anemia Left-sided pleural effusion/small Plan The patient is currently on 3 liters of oxygen by nasal cannula Remove all tubes Cardiothoracic surgery is on the case Hemodynamically stable Continue colchicine Toradol for pain control Continue Symbicort/Spiriva and Ventolin rescue inhaler on as-needed basis Albuterol nebulizer treatments as needed, 4 times a day Lovenox for DVT prophylaxis 40 mg subcu Will continue to follow and make further recommendations based on the progress.
[2024-12-02] MEDS: BENZONATATE 100 MG CAP PO PRN (20:03)
--- NOTE | 2024-12-03 08:14 | XR ---
EXAMINATION TYPE: XR chest 2V DATE OF EXAM: 12/03/2024 7:35 AM COMPARISON: Chest radiographs from 12/02/2024 CLINICAL INDICATION: Male, 84 years old with history of Effusion; [facility] TECHNIQUE: XR chest 2V Frontal and lateral views of the chest. FINDINGS: Lungs/Pleura: No evidence of focal consolidation or pneumothorax. Blunting of the costophrenic angles is present. Pulmonary vascularity: Pulmonary vascular congestion. Heart/mediastinum: Cardiomediastinal silhouette is enlarged. A loop recorder projects over the left t horax over the heart. Musculoskeletal: No acute osseous pathology. IMPRESSION: Cardiomegaly, pulmonary vascular congestion and bilateral pleural effusions. Correlate with BNP for c ongestive heart failure. [facility], , 12/03/2024 8:12 AM
--- NOTE | 2024-12-03 08:22 | P.PN ---
Subjective Progress Note Date: 12/03/24 Principal diagnosis: Mild to moderate pericardial effusion, increased to large with evidence of early tamponade. Previous medical history of sick sinus syndrome/symptomatic bradyca rdia status post insertion of dual-chamber permanent pacemaker 11/13/2024, nonsustained ventricular tachycardia, nonischemic cardiomyopathy, coronary artery disease, hyperlipidemia, TIA on Plavix as an outpatient, COPD with chronic hypoxic respiratory failure on home oxygen using 2 L nasal cannula at night, depression, obesity, obstructive sleep apnea without home CPAP use, bladder cancer, and previous tobacco dependence POD #4 pericardial window with transesophageal echocardiogram The patient was seen and examined this morning sitting up in a recliner on the cardiac stepdown unit in no acute distress. States pain is controlled on current medication regimen, denies significant shortness of breath. Remains in sinus rhythm, hemodynamically stable. Currently on 2 L nasal cannula with oxyge n saturation of the mid 90s. Chest tubes were discontinued yesterday. Patient looks clinically better, states he feels better. Chest x-ray, limited echo reviewed. No other new concerns. Objective - Vital Signs Vital signs: Vital Signs Temp 97.5 F L 12/03/24 03:06 Pulse 80 12/03/24 03:06 Resp 16 12/03/24 03:06 BP 107/68 12/03/24 03:06 Pulse Ox 95 12/03/24 03:06 FiO2 Intake & Output 12/02/24 12/03/24 12/03/24 18:59 06:59 18:59 Intake Total 240 Output Total 300 275 Balance -60 -275 Weight 99 kg Intake: Oral 240 Output: Urine 300 275 Other: Voiding Method Urinal Urinal # Voids 1 1 # Bowel Movements 2 ABP, PAP, CO, CI - Last Documented Arterial Blood Pressure 123/67 - Exam CONSTITUTIONAL: Appears comfortable, cooperative, no acute distress RESPIRATORY: Lungs sounds diminished in the bases bilaterally. Respirations even, nonlabored. Currently on 2 L nasal cannula with oxygen saturation 95%. Able to achieve 1500 mL on incentive spirometry. Strong cough. CARDIOVASCULAR: S1, S2 present. Regular rate and rhythm, sinus rhythm on telemetry. Palpable peripheral pulses bilaterally. No edema present. No calf pain or tenderness noted GASTROINTESTINAL: Abdomen soft, nontender, nondistended. Active bowel sounds present 4 quadrants. Tolerating diet. Positive bowel movement 12/02 GENITOURINARY: Continues to void INTEGUMENTARY: Skin is warm and dry NEUROLOGIC: Cranial nerves II through XII intact MUSKULOSKELETAL: Able to move all extremities, strength equal bilaterally, gait normal PSYCHIATRIC: Alert and oriented to person place and time, appropriate affect, intact judgment and insight - Allied health notes Allied health notes reviewed: nursing - Labs CBC & Chem 7: 12/01/24 07:49 12/02/24 07:53 Labs: Abnormal Lab Results - Last 24 Hours (Table) 12/02/24 Range/Units 07:53 Sodium 136 L (137-145) mmol/L BUN 28 H (9-20) mg/dL Microbiology - Last 24 Hours (Table) 11/29/24 16:54 Gram Stain - Preliminary Pericardial Fluid Tissue Culture - Preliminary 11/29/24 16:54 Gram Stain - Preliminary Pericardial Fluid Body Fluid Culture - Preliminary - Imaging and Cardiology Chest x-ray: report reviewed, image reviewed Assessment and Plan Assessment: Mild to moderate pericardial effusion, increased to large with evidence of early tamponade, status post pericardial window History of sick sinus syndrome/symptomatic bradycardia status post insertion of dual-chamber permanent pacemaker 11/13/2024 Nonsustained ventricular tachycardia Nonischemic cardiomyopathy Coronary artery disease Hyperlipidemia TIA on Plavix as an outpatient COPD with chronic hypoxic respiratory failure on home oxygen using 2 L nasal cannula at night Depression Obesity Obstructive sleep apnea without home CPAP use Bladder cancer Previous tobacco dependence Plan: No further surgical intervention Wean oxygen as tolerated, encourage incentive spirometry use 10 times every hour while awake Increase activity, ambulate as tolerated. PT/OT consulted Encourage oral nutrition Plavix can be restarted from cardiothoracic surgery standpoint Medical management of other comorbidities per internal medicine, cardiology, pulmonology Will continue to see as needed, please call us with any further questions Patient should follow-up with surgeon/[employer] 1 to 2 weeks after discharge for incision check
--- NOTE | 2024-12-03 09:40 | P.PN ---
Subjective Progress Note Date: 12/03/24 The patient is an 84-year-old male with multiple comorbid conditions, who is currently admitted to the hospital with increased shortness of breath. Patient recently had pacemaker placed on November [address] Henson. He was found to have a pericardial effusion and therefore underwent pericardial drain placement, which has since been discontinued. Awaiting repeat echocardiogram prior to discharge. Interviewed and examined resting comfortably in recliner chair. He states he is feeling well. He denies any chest pain or pressure. No shortness of breath. GENERAL: Well-appearing, well-nourished and in no acute distress. NECK: Supple without JVD or thyromegaly. LUNGS: Breath sounds coarse to auscultation bilaterally. Respiration equal and unlabored. Bilateral rhonchi. HEART: Regular rate and rhythm without murmurs, rubs or gallops. S1 and S2 heard. Pacemaker incision well-approximated. No drainage. EXTREMITIES: Normal range of motion, no edema. No clubbing or cyanosis. Peripheral pulses intact and strong. TELEMETRY: Sinus rhythm overnight IMPRESSION: Pericardial effusion Substernal chest pain, pleuritic in nature Left lower lobe pneumonia with evidence of leukocytosis History of sick sinus syndrome status post PPM 11/13/2024 Prior history of TIA Prior history of cardiomyopathy with recovered LVEF PLAN: Awaiting echocardiogram results If there is resolution of pericardial effusion, patient may be discharged from the cardiac standpoint I am dictating on behalf of Dr Jayme Cottrell's history/physical and assessment/plan. Objective - Vital Signs Vital signs: Vital Signs Temp 97.7 F 12/03/24 08:39 Pulse 65 12/03/24 08:39 Resp 16 12/03/24 08:39 BP 104/62 12/03/24 08:39 Pulse Ox 96 12/03/24 08:39 FiO2 Intake & Output 12/02/24 12/03/24 12/03/24 18:59 06:59 18:59 Intake Total 240 480 Output Total 300 275 Balance -60 -275 480 Weight 99 kg Intake: Oral 240 480 Output: Urine 300 275 Other: Voiding Method Urinal Urinal # Voids 1 1 # Bowel Movements 2 ABP, PAP, CO, CI - Last Documented Arterial Blood Pressure 123/67 - Labs CBC & Chem 7: 12/01/24 07:49 12/02/24 07:53 Labs: Abnormal Lab Results - Last 24 Hours (Table) 12/02/24 Range/Units 07:53 Sodium 136 L (137-145) mmol/L BUN 28 H (9-20) mg/dL Microbiology - Last 24 Hours (Table) 11/29/24 16:54 Gram Stain - Preliminary Pericardial Fluid Tissue Culture - Preliminary 11/29/24 16:54 Gram Stain - Preliminary Pericardial Fluid Body Fluid Culture - Preliminary
--- NOTE | 2024-12-03 10:32 | CA ---
Transthoracic Echo Report Name: Stephan Becker Age: 84 Gender: M : 1940 Exam Date: 12/02/2024 13:12 Exam Location: [place] [facility] Ht (in): 71 Wt (lb): 220 Ordering Physician: Hemanth Niño Attending/Referring Phys: Education Paraprofessional Ivory Valdez RDCS Procedure CPT: Indications: pericardial effusion Cardiac Hx: Technical Quality: Contrast 1: Total Dose (mL): Contrast 2: Total Dose (mL): MEASUREMENTS (Male / Female) Normal Values FINDINGS Left Ventricle Limited study to evaluate pericardial effusion. Left ventricular ejection fraction is estimated at 50-55 %. Right Ventricle Right Atrium Left Atrium Mitral Valve Aortic Valve Tricuspid Valve Pulmonic Valve Pericardium Small pericardial effusion. Pericardial effusion located near the left atrium. No hemodynamic variation noted. Aorta CONCLUSIONS Reason for test: Pericardial effusion status post pericardial window and removal of pericardial drain Trace pericardial effusion Left ventricular ejection fraction of the lower limits of normal Previewed by: Dr. Jayme Cottrell MD (Electronically Signed) Final Date: 03 December 2024 10:31
[2024-12-03] MEDS ORDERED: ALBUTEROL NEBULIZED 2.5 MG/3 ML INHALATION PRN (11:01)
--- NOTE | 2024-12-03 13:28 | P.PN ---
Subjective Progress Note Date: 12/03/24 Patient is a 84 year old male with CAD, COPD, AR, former heavy smoker presented to the ED with shortness of breath and chest pain. Patient reports his shortness of breath started yesterday night when he was resting. He states having midsternal chest pain with deep breaths, no radiation of pain. Associated with that he experienced cough for two weeks, with dark blackish sputum production initially, but it is clear now. He denies fever, chills, trauma. Denies any travel history. He uses oxygen intermittently at home, usually at night, at 2L. He mentions having a heart catheterization in the past but denies any stents placed. Denies history of CHF. He reports getting short of breath when walking to and from the restroom at home, but states that its at baseline. He uses a walker at home to ambulate. He quit smoking 13 years ago. Patient recently 11/13/24 underwent insertion of dual-chamber permanent pacemaker for sick sinus syndrome, symptomatic bradycardia with need for beta-td for VT and cardiomyopathy. Denies fever, chills, palpitations, abdominal pain, nausea, vomiting, hematuria, dysuria, hematochezia, melena, headache, slurred speech, numbness, tingling, dizziness, lightheadedness, blurred vision, double vision. ED documentation reviewed. In the ED patient was treated with DuoNeb, ketorolac, lorazepam, Rocephin, 0.9 normal saline, Zithromax. 11/27/2024patient seen and examined at bedside. No events overnight. No complaints of shortness of breath or chest pain this morning. 11/28/2024patient seen and examined at bedside. No events overnight. No new complaints. Continue to wean oxygen as tolerated, currently on 3 L nasal cannula saturating at 96% 11/29/2024patient seen and examined at bedside. No events overnight. Some shortness of breath. Echocardiogram with increasing pericardial effusion evolving tamponade and overlying right ventricular thrombus, patient transferred to ICU. 11/30/2024patient seen and examined at bedside in the ICU. Blood pressure dolly rderline hypotensive overnight. Denies chest pain or shortness of breath. Yesterday patient underwent pericardial window and transesophageal echocardiogram. 12/01/2024patient seen and examined at bedside. Denies chest pain or shortness of breath. s/p transesophageal echocardiogram. Mediastinal/left pleural chest tube in place. 12/02/2024-Pt reports overall improvement. C/o dry cough. Added tessalon perles. Tubes have been removed. 12/03/2024-Pt reports overall improvement. Dry cough improved with tessalon perles. Planning d/c tomorrow Am. Review of systems: Pertinent positives and negatives as discussed in HPI, a complete review of systems was performed and all other systems are negative. Physical examination: Vital signs reviewed General: nontoxic, no distress, appears at stated age Derm: warm, dry, intact Cardiovascular: S1 S2 reg, no murmur Lungs: CTA bilateral, no rhonchi, no rales, no accessory muscle use Abdominal: soft, non-tender to palpation Extremities: No cyanosis, clubbing, or pedal edema. Neuro: Alert, Oriented, Gross neurological examination did not reveal any focal deficits. Today's pertinent findings: LabsWBC 8.6, hemoglobin 11.0, sodium 134, potassium 4.3, bicarb 20, BUN 39, creatinine 1.08 Imagingchest x-ray independently interpreted as similar mild to moderate cardiomegaly, ongoing CHF, slight improvement, ongoing small bilateral pleural effusions Assessment/Plan: Patient is a 84 year old male with CAD, COPD, AR presented to the ED with shortness of breath and chest pain #. Atypical chest pain #. CAD S/p cardiac catheterization #History of sick sinus syndrome status post PPM 11/13/2024 #Pericardial effusion, s/p pericardial window, 500 mL of bloody fluid drained from pericardial space Initial troponin I <0.012 Continue home meds Aspirin, statin, discontinue Plavix Continue telemetry monitoring Echocardiogram with mild to moderate pericardial effusion, globally decreased contractility, LVEF 40% Follow-up echocardiogram with increasing pericardial effusion evolving tamponade and overlying right ventricular thrombus, transferred to ICU Continue colchicine 0.6 mg twice daily Cardiology following CT surgery following, s/p pericardial window, 500 mL of bloody fluid drained from pericardial space, chest tube in place #. Community acquired pneumonia #. Chronic hypoxic respiratory failure #. COPD (on home oxygen 2L PRN) Initial chest x-ray shows bibasilar subsegmental changes, left greater than right are presumed asymmetric edema, coexisting infection is difficult to exclude in this region, no large pleural effusion or pneumothorax Completed azithromycin 500 mg IVPB for total of 3 days and Rocephin 2 g IVPB every 24 hours for total of 5 days Continue Ventolin and Symbicort, Spiriva Wean oxygen as tolerated Blood culture, sputum culture pending. Legionella antigen negative #. Normocytic anemia Obtain iron studies iron saturation 7.83%, LDH 271, retic count 3.2%. vit B12, folate pending Monitor CBC Transfuse for Hb<7 #. Mild hyponatremia Monitor BMP Discontinue IV fluid Chronic: #. Sick sinus syndrome S/p dual chamber permanent pacemaker implantation 11/13/24 #. AR not on CPAP, cannot tolerate #. History of TIA #. Anxiety/depression #. Restless leg syndrome Resume home meds once verified by the pharmacy F: None E: Replete as required N: Heart healthy diet A: Bedrest DVT prophylaxis: Lovenox 40 mg SQ daily CODE STATUS: FULL CODE Discussed with: Patient Anticipated discharge place: Pending clinical course Objective - Vital Signs Vital signs: Vital Signs Temp 97.7 F 12/03/24 08:39 Pulse 84 12/03/24 12:28 Resp 16 12/03/24 12:28 BP 106/67 12/03/24 12:28 Pulse Ox 93 L 12/03/24 12:28 FiO2 Intake & Output 12/02/24 12/03/24 12/03/24 18:59 06:59 18:59 Intake Total 240 480 Output Total 300 275 Balance -60 -275 480 Weight 99 kg Intake: Oral 240 480 Output: Urine 300 275 Other: Voiding Method Urinal Urinal Urinal # Voids 1 1 1 # Bowel Movements 2 ABP, PAP, CO, CI - Last Documented Arterial Blood Pressure 123/67 - Labs CBC & Chem 7: 12/01/24 07:49 12/02/24 07:53 Labs: Microbiology - Last 24 Hours (Table) 11/29/24 16:54 Gram Stain - Preliminary Pericardial Fluid Tissue Culture - Preliminary 11/29/24 16:54 Gram Stain - Preliminary Pericardial Fluid Body Fluid Culture - Preliminary
--- NOTE | 2024-12-03 19:12 | P.PN ---
Subjective Progress Note Date: 12/03/24 This is a 84-year-old male patient who got transferred to the intensive care un it for hemodynamically unstable pericardial effusion with early signs of tamponade. The patient has history of sick sinus syndrome and symptomatic bradycardia and the patient is post dual-chamber pacemaker insertion that was performed on 11/13/2024. He also has history of nonsustained VT, nonischemic cardiomyopathy, hyperlipidemia, COPD and chronic hypoxic respiratory failure in a patient artery dependent at 2 L/min nasal cannula, coronary artery disease and obstructive sleep apnea for which the patient is not utilizing any form of CPAP therapy at this point. He also has previous history of bladder cancer and previous history of smoking. The patient is quit smoking approximate 13 years ago. The patient got transferred to the intensive care unit and the patient is being taken to the operating room for a pericardial window. The patient had an echocardiogram that showed increasing pericardial effusion with evolving tamponade and an overlying right ventricular thrombus. His most recent BP is 109/76. Heart rate is around 78 with respiration of 22. Pulse ox is 96% on 3 L of oxygen by nasal cannula. Chest x-ray from 11/27/2024 showed increased bilateral stitcher markings and more focal left basilar opacity and small bilateral pleural effusion. The patient also had a pacemaker generator over the left anterior chest area. Most recent echocardiogram from 11/29/2024 showed a large pericardial effusion with signs of tamponade. Cardiothoracic surgery is aware. The WBC count is at 12.5 with hemoglobin 9.1 and a platelet count of 229. BUN 25 with a creatinine of 1.1 and a sodium levels at 133. Serum iron is at 26 and the patient has underlying iron deficiency. Echocardiogram also showed an ejection fraction of 40% without any significant valvular abnormalities. On 11/30/2024, the patient is being seen for a follow-up. The patient was taken to the operating room yesterday and the patient underwent a pericardial window and the patient is currently postop day #1. Noted the patient had an immediate drainage of 500 cc of bloody fluid and this was drained from the pericardial space. The patient has a pericardial tube in place for now and another 100 cc of output was noted since surgery. The patient also has a left pleural chest tube and the total amount of output is 140 cc since surgery. The chest x-ray from today shows mild to moderate cardiomegaly, ongoing CHF with increased interstitial pulmonary markings. Small to moderate-sized left and small right-sided pleural effusion noted. The patient has a pacemaker over the left anterior chest. The pericardial tube is not adequately seen on today's chest x- ray. Otherwise, the patient is doing well. The patient is hemodynamically stable. The white cell count is at 9.1 with a hemoglobin 10.9 and a platelet count of 219. Sodium is 134, BUN is 34 with a creatinine of 1.05. Potassium level is at 5. Serum bicarb is at 20. Cardiac rhythm is sinus. The patient remains on colchicine. The patient remains on Toradol for pain control. He remains on Spiriva and Ventolin rescue inhaler in last 28 basis. No other significant events overnight. No significant cardiac arrhythmias. The patient is hemodynamically stable. On 12/01/2024, the patient is being seen for a follow-up. The patient is doing well and the patient is postop day #2 following a pericardial window. For now, the patient is a pericardial tube and a left pleural chest tube in place. The patient is stable. He is currently on liters of oxygen by nasal cannula with pulse ox of 97%. Using incentive spirometer. Output from the tubes were noted and the patient has a total of 100 cc of output from the pericardial tube over the past 24 hours. As for the left pleural chest tube, this has produced approximately 860 cc over the past 24 hours. Repeat chest x-ray from today shows small to moderate size cardiomegaly along with CHF and pulm vessel congestion. The patient also has atelectatic changes specifically in the left lung base. No chest pain. The white cell count 8.6 with a hemoglobin 11 and a platelet count of 230. BUN 39 with a creatinine of 1.08. Sodium levels at 134. Remains on Symbicort and Spiriva and Ventolin on a as needed basis. Remains on metoprolol 25 mg p.o. daily. The patient is also on colchicine 0.6 mg p.o. on a daily basis. On 12/02/2024, the patient is being seen for a follow-up. The patient is doing well. No specific complaints. On today's evaluation, the patient is on a telemetry unit and the patient was discharged from the intensive care unit. The patient came to the he is on 2 L of oxygen by nasal cannula. The mediastinal and left pleural chest tubes are still in place. No significant chest pain. No pleurisy. No hemoptysis. Output from the tubes were noted in the left lower chest tube has produced 20 cc over the past 24 hours and the output from the pericardial tubes have been minimal. The patient using incentive spirometer, pulling approximately 1.2 L. BUN is 28 with a creatinine of 0.9. Sodium level is at 136 and potassium level is at 4.4. Remains on better number of treatments as needed, remains on Symbicort and Spiriva, Lovenox for DVT prophylaxis and the patient is also on colchicine and metoprolol. On 12/03/2024, the patient has no complaints. The pericardial tube in the pleural chest tube has been removed and the patient is not having any major r espiratory difficulties. Afebrile. Pulse ox is 96% recent oxygen by nasal cannula at 93% room air oxygen. Medications are unchanged. Remains on aspirin. Remains on colchicine. Remains on Plavix. Patient is also on metoprolol 25 mg p.o. daily. Respiratory medications are in the form of Symbicort and Spiriva and albuterol HFA on as-needed basis. No new labs are available from today. Most recent labs are from yesterday. Objective - Vital Signs Vital signs: Vital Signs Temp 97.7 F 12/03/24 08:39 Pulse 65 12/03/24 08:39 Resp 16 12/03/24 08:39 BP 104/62 12/03/24 08:39 Pulse Ox 96 12/03/24 11:08 FiO2 Intake & Output 12/02/24 12/03/24 12/03/24 18:59 06:59 18:59 Intake Total 240 480 Output Total 300 275 Balance -60 -275 480 Weight 99 kg Intake: Oral 240 480 Output: Urine 300 275 Other: Voiding Method Urinal Urinal Urinal # Voids 1 1 1 # Bowel Movements 2 ABP, PAP, CO, CI - Last Documented Arterial Blood Pressure 123/67 - Exam CONSTITUTIONAL: Appears comfortable, cooperative, no acute distress RESPIRATORY: Lungs sounds diminished in the bases bilaterally. Respirations even, nonlabored. Currently on 2 L nasal cannula with oxygen saturation 96%. CARDIOVASCULAR: S1, S2 present. Regular rate and rhythm, sinus rhythm on telemetry. Palpable peripheral pulses bilaterally. No edema present. No calf pain or tenderness noted GASTROINTESTINAL: Abdomen soft, nontender, nondistended. Active bowel sounds present 4 quadrants. Tolerating diet. INTEGUMENTARY: Skin is warm and dry NEUROLOGIC: Cranial nerves II through XII intact MUSKULOSKELETAL: Able to move all extremities, strength equal bilaterally, gait normal PSYCHIATRIC: Alert and oriented to person place and time, appropriate affect, intact judgment and insight INVASIVE LINES AND TUBES: All tubes have been removed - Labs CBC & Chem 7: 12/01/24 07:49 12/02/24 07:53 Labs: Microbiology - Last 24 Hours (Table) 11/29/24 16:54 Gram Stain - Preliminary Pericardial Fluid Tissue Culture - Preliminary 11/29/24 16:54 Gram Stain - Preliminary Pericardial Fluid Body Fluid Culture - Preliminary Assessment and Plan Plan: Large pericardial effusion with signs of cardiac tamponade. The patient is postop day #4 post pericardial window. Pericardial tube is in place. Output is being noted and monitored. Cardiology and cardiothoracic surgery is on the case. Hemodynamically stable. No pressors for now. Rule out viral pleuropericarditis. Rule out complication of pacemaker insertion. The pericardial tube in the left side chest tube removed Left-sided pleural effusion post left-sided chest tube with subsequent removal. Acute hypoxic respiratory failure, likely secondary to underlying CHF and the patient has some small bilateral pleural effusion effusions and atelectatic ch anges lung bases. Currently on 2 L of oxygen by nasal cannula. Sick sinus syndrome with symptomatic bradycardia status post dual-chamber pacemaker insertion on 11/13/2024 CHF with an ejection fraction of 40% Previous history of nonsustained VT Coronary artery disease COPD with chronic hypoxic respiratory failure maintained on oxygen 2 L/min nasal cannula Obstructive sleep apnea, not receiving any CPAP therapy Previous history of bladder cancer History of TIA, maintained on Plavix on outpatient basis Former smoker Iron deficiency anemia Left-sided pleural effusion/small Plan The patient is currently on 2 HAVE been removed liters of oxygen by nasal cannula Tubes have been removed Cardiothoracic surgery is on the case Hemodynamically stable Continue colchicine Toradol for pain control Continue Symbicort/Spiriva and Ventolin rescue inhaler on as-needed basis Albuterol nebulizer treatments as needed, 4 times a day Lovenox for DVT prophylaxis 40 mg subcu Will sign off, rest of the management as per medicine. No active pulmonary or critical care issues at this point.
[2024-12-04 06:40] LABS: Basophils # (A) 0.04 10*3/uL (0.00-0.10); Basophils % (A) 0.4 %; Eosinophils # (A) 1.87 10*3/uL (0.04-0.35); HCT 34.8 % (39.6-50.0); HGB 11.3 g/dL (13.0-17.0); Lymphocytes # (A) 1.07 10*3/uL (0.90-5.00); Lymphocytes % (A) 11.5 %; MCHC 32.5 g/dL (32.0-37.0); MCV 92.3 fL (80.0-97.0); Monocytes # (A) 0.66 10*3/uL (0.20-1.00); Monocytes % (A) 7.1 %; Neutrophils # (A) 5.64 10*3/uL (1.80-7.70); Neutrophils % (A) 60.5 %; Platelet Count 254 10*3/uL (140-440); RBC 3.77 10*6/uL (4.40-5.60); RDW 14.2 % (11.5-14.5); WBC 9.33 10*3/uL (4.50-10.00)
[2024-12-04 06:51] LABS: African American GFR (CKD) >90 (>60 ml/min/1.73 sqM); Anion Gap 9 mmol/L; Blood Urea Nitrogen 17 mg/dL (9-20); Calcium 8.5 mg/dL (8.4-10.2); Carbon Dioxide 23 mmol/L (22-30); Chloride 106 mmol/L (98-107); Glucose 109 mg/dL (74-99); Magnesium 1.4 mg/dL (1.6-2.3); Non-African American GFR(CKD) 84 (>60 ml/min/1.73 sqM); Sodium 138 mmol/L (137-145)
--- NOTE | 2024-12-04 08:41 | P.PN ---
Subjective Progress Note Date: 12/04/24 The patient was seen and evaluated this morning. He is asymptomatic and hemodynamically stable. Repeated echo showed trace pericardial effusion if any and no evidence of any significant abnormalities. From the cardiac standpoint to view the patient can be discharged home. The physical examination is r emarkable for diminished breathing sounds bilaterally and distant heart sounds and no edema was noted in the lower extremities IMPRESSION: Pericardial effusion Substernal chest pain, pleuritic in nature Left lower lobe pneumonia with evidence of leukocytosis History of sick sinus syndrome status post PPM 11/13/2024 Prior history of TIA Prior history of cardiomyopathy with recovered LVEF Plan Continue the current medical regimen The patient potentially can be discharged home Objective - Vital Signs Vital signs: Vital Signs Temp 97.6 F 12/04/24 03:11 Pulse 72 12/04/24 03:11 Resp 18 12/04/24 03:11 BP 108/64 12/04/24 03:11 Pulse Ox 97 12/04/24 03:11 FiO2 Intake & Output 12/03/24 12/04/24 12/04/24 18:59 06:59 18:59 Intake Total 702 Output Total 926 Balance 702 -926 Weight 98.4 kg Intake: Oral 702 Output: Urine 925 Stool 1 Other: Voiding Method Urinal Urinal # Voids 1 1 ABP, PAP, CO, CI - Last Documented Arterial Blood Pressure 123/67 - Labs CBC & Chem 7: 12/04/24 06:04 12/04/24 06:04 Labs: Abnormal Lab Results - Last 24 Hours (Table) 12/04/24 12/04/24 Range/Units 06:04 06:04 RBC 3.77 L (4.40-5.60) 10*6/uL Hgb 11.3 L (13.0-17.0) g/dL Hct 34.8 L (39.6-50.0) % Immature Gran # 0.05 H (0.00-0.04) 10*3/uL Eosinophils # 1.87 H (0.04-0.35) 10*3/uL Glucose 109 H (74-99) mg/dL Magnesium 1.4 L (1.6-2.3) mg/dL Microbiology - Last 24 Hours (Table) 11/29/24 16:54 Gram Stain - Final Pericardial Fluid Body Fluid Culture - Final 11/29/24 16:54 Gram Stain - Final Pericardial Fluid Tissue Culture - Final
[2024-12-04] MEDS: CLOPIDOGREL 75 MG TAB PO SCH (08:55)
[2024-12-04] MEDS: MAGNESIUM SULFATE-D5W PMX 1 GM in DEXTROSE/WATER 1 100ML.BAG IVPB SCH (09:06)
[2024-12-04 10:56] VITALS: PULSE 76; RESP 16; TEMP 97.4
[2024-12-04 11:38] VITALS: BP 103/66
--- NOTE | 2024-12-04 15:26 | P.DS ---
Providers Date of admission: 11/26/24 03:36 Expected date of discharge: 12/04/24 Attending physician: Luh Ray MD Consults: 11/26/24 03:34 Consult Physician Routine Consulting Provider: Jesus Manuel Burris Consult Reason/Comments: fidel mccray Do you want consulting provider notified?: Yes 11/27/24 11:27 Consult Physician Routine Consulting Provider: Anusha Lewis Consult Reason/Comments: pericardial effusion 2 weeks post PPM Do you want consulting provider notified?: Yes 11/29/24 12:25 Consult Physician Urgent Consulting Provider: Terry Torre Consult Reason/Comments: ICU management Do you want consulting provider notified?: Already Contacted Primary care physician: Mitchell Jessica Hospital Course: Discharge diagnoses; #Pericardial effusion, s/p pericardial window, 500 mL of bloody fluid drained from pericardial space # Atypical chest pain # CAD S/p cardiac catheterization #History of sick sinus syndrome status post PPM 11/13/2024 #. Community acquired pneumonia #. Chronic hypoxic respiratory failure #. COPD (on home oxygen 2L PRN) #. Normocytic anemia #. Mild hyponatremia #. Sick sinus syndrome S/p dual chamber permanent pacemaker implantation 11/13/24 #. AR not on CPAP, cannot tolerate #. History of TIA #. Anxiety/depression #. Restless leg syndrome Hospital course; Patient is a 84 year old male with CAD, COPD, AR, former heavy smoker presented to the ED with shortness of breath and chest pain. Patient reports his shortness of breath started yesterday night when he was resting. He states having midsternal chest pain with deep breaths, no radiation of pain. Associated with that he experienced cough for two weeks, with dark blackish sputum production initially, but it is clear now. He denies fever, chills, trauma. Denies any travel history. He uses oxygen intermittently at home, usually at night, at 2L. He mentions having a heart catheterization in the past but denies any stents placed. Denies history of CHF. He reports getting short of breath when walking to and from the restroom at home, but states that its at baseline. He uses a walker at home to ambulate. He quit smoking 13 years ago. Patient recently 11/13/24 underwent insertion of dual-chamber permanent pacemaker for sick sinus syndrome, symptomatic bradycardia with need for beta-td for VT and cardiomyopathy. Denies fever, chills, palpitations, abdominal pain, nausea, vomiting, hematuria, dysuria, hematochezia, melena, headache, slurred speech, numbness, tingling, dizziness, lightheadedness, blurred vision, double vision. ED documentation reviewed. In the ED patient was treated with DuoNeb, ketorolac, lorazepam, Rocephin, 0.9 normal saline, Zithromax. During hospital course patient was treated for community-acquired pneumonia and completed course of antibiotics. He was seen by pulmonology. Also during his stay he was found to have pericardial effusion which continue to increase in size. He had a pericardial window with removal of 500 mL of bloody fluid drained from the pericardial space. He continued on colchicine and was seen by CT surgery and cardiology. He continued to improve during his stay and chest drains were removed without further complication. Patient discharged to home in stable condition. He will begin colchicine 0.6 mg twice daily and metoprolol 25 mg daily. He will need to follow-up with his PCP and CT surgery. Physical examination: Vital signs reviewed General: nontoxic, no distress, appears at stated age Derm: warm, dry, intact Cardiovascular: S1 S2 reg, no murmur Lungs: CTA bilateral, no rhonchi, no rales, no accessory muscle use Abdominal: soft, non-tender to palpation Extremities: No cyanosis, clubbing, or pedal edema. Neuro: Alert, Oriented, Gross neurological examination did not reveal any focal deficits. Joe Hare MD Internal Medicine Resident, PGY1 Dictation was produced using [employer] dictation software. please excuse any grammatical, word or spelling errors. I saw and evaluated the patient during the nava and critical portions of this encounter, and discussed the case in detail with the resident author of this note, I agree with the Assessment and Plan, and my changes, if any, are highlighted in blue. Patient Condition at Discharge: Stable Plan - Discharge Summary Discharge Rx Participant: Yes New Discharge Prescriptions: New Colchicine [Colcrys] 0.6 mg PO BID #90 each Metoprolol Succinate (ER) [Toprol XL] 25 mg PO DAILY #90 tab Continue Nitroglycerin Sl Tabs [Nitrostat] 0.4 mg SUBLINGUAL Q5M PRN PRN Reason: Chest Pain Aspirin 81 mg PO DAILY Clopidogrel [Plavix] 75 mg PO DAILY #30 tab Sertraline [Zoloft] 50 mg PO HS rOPINIRole HCL [Requip] 1 mg PO HS Acetaminophen Tab [Tylenol] 500 mg PO Q6H PRN PRN Reason: Pain Albuterol Inhaler [Ventolin Hfa Inhaler] 2 puff INHALATION RT-Q4H PRN PRN Reason: Shortness Of Breath Atorvastatin [Lipitor] 20 mg PO HS Fluticasone/Umeclidin/Vilanter [Trelegy Ellipta 200-62.5-25] 1 puff INHALATION RT-DAILY Ibuprofen [Advil] 200 mg PO Q6H PRN PRN Reason: Pain Discharge Medication List Aspirin 81 mg PO DAILY 02/21/17 [History] Nitroglycerin Sl Tabs [Nitrostat] 0.4 mg SUBLINGUAL Q5M PRN 02/21/17 [History] Clopidogrel [Plavix] 75 mg PO DAILY #30 tab 02/23/17 [Rx] Atorvastatin [Lipitor] 20 mg PO HS 04/28/24 [History] Fluticasone/Umeclidin/Vilanter [Trelegy Ellipta 200-62.5-25] 1 puff INHALATION RT-DAILY 04/28/24 [History] Sertraline [Zoloft] 50 mg PO HS 04/28/24 [History] rOPINIRole HCL [Requip] 1 mg PO HS 04/28/24 [History] Acetaminophen Tab [Tylenol] 500 mg PO Q6H PRN 11/10/24 [History] Albuterol Inhaler [Ventolin Hfa Inhaler] 2 puff INHALATION RT-Q4H PRN 11/10/24 [History] Ibuprofen [Advil] 200 mg PO Q6H PRN 11/10/24 [History] Colchicine [Colcrys] 0.6 mg PO BID #90 each 12/04/24 [Rx] Metoprolol Succinate (ER) [Toprol XL] 25 mg PO DAILY #90 tab 12/04/24 [Rx] Follow up Appointment(s)/Referral(s): [facility],Home Care [NON-STAFF] - 1 Week Doug Abdi MD [STAFF PHYSICIAN] - 12/11/24 10:15 am () Mitchell Jessica MD [Primary Care Provider] - 1-2 days (This office requested that the patient make the follow up appointment once discharged.) Patient Instructions/Handouts: Heart Failure (DC), Low-Sodium Diet (DC), Cardiac Tamponade (DC) Activity/Diet/Wound Care/Special Instructions: Follow-up with PCP and cardiothoracic surgery Dr. Abdi. Begin colchicine 0.6 mg twice daily and metoprolol 25 mg daily. Discharge Disposition: HOME SELF-CARE
== END 2024-12-04 15:05 | disposition home or self-care (01) | DRG 270 ==
LOC: EC 00:50 → 6NMEDSUR 03:36 → 2SICU 11-29 12:12 → 3SCARD 12-01 01:32
PROVIDERS: ADMIT Internal Medicine; ATTEND Internal Medicine
PROC: B24BZZ4 Ultrasonography of Heart with Aorta, Transesophageal (ICD-10-PCS; 2024-11-29)
PROC: 0W9D00Z Drainage of Pericardial Cavity with Drainage Device, Open Approach (ICD-10-PCS; principal; 2024-11-29 11:40)
DX: I31.39 Other pericardial effusion (noninflammatory) (principal); J18.9 Pneumonia, unspecified organism; I31.4 Cardiac tamponade; I51.3 Intracardiac thrombosis, not elsewhere classified; J44.0 Chronic obstructive pulmonary disease with (acute) lower respiratory infection; E87.1 Hypo-osmolality and hyponatremia; I42.8 Other cardiomyopathies; I11.0 Hypertensive heart disease with heart failure; D64.9 Anemia, unspecified; F32.A Depression, unspecified; G25.81 Restless legs syndrome; I35.1 Nonrheumatic aortic (valve) insufficiency; Z68.31 Body mass index [BMI] 31.0-31.9, adult; J96.11 Chronic respiratory failure with hypoxia; I50.22 Chronic systolic (congestive) heart failure; I49.5 Sick sinus syndrome; Z99.81 Dependence on supplemental oxygen; G47.33 Obstructive sleep apnea (adult) (pediatric); I95.9 Hypotension, unspecified; I25.10 Atherosclerotic heart disease of native coronary artery without angina pectoris; F41.9 Anxiety disorder, unspecified; E66.9 Obesity, unspecified; E61.1 Iron deficiency; E78.5 Hyperlipidemia, unspecified; Z87.891 Personal history of nicotine dependence; Z95.0 Presence of cardiac pacemaker; Z86.73 Personal history of transient ischemic attack (TIA), and cerebral infarction without residual deficits; Z85.51 Personal history of malignant neoplasm of bladder; Z79.82 Long term (current) use of aspirin; Z79.02 Long term (current) use of antithrombotics/antiplatelets; Z79.899 Other long term (current) drug therapy; Z82.49 Family history of ischemic heart disease and other diseases of the circulatory system; Z79.51 Long term (current) use of inhaled steroids; Z86.79 Personal history of other diseases of the circulatory system
CPT/HCPCS: 36415; 71045; 71046; 80048; 80053; 80061; 82728; 83036; 83540; 83550; 83605; 83615; 83735; 83880; 84443; 84484; 85025; 85027; 85045; 85610; 85652; 85730; 86140; 86850; 86900; 86901; 87040; 87070; 87116; 87205; 87206; 87449; 88108; 88305; 93005; 93308; 94640; 94760; 96365; 96367; 96372; 96375; 96376; 99285

== ENCOUNTER → 2024-12-11 | Outpatient (CLI) | payer MEDICARE ==
--- NOTE | 2024-12-11 18:59 | XR ---
EXAMINATION TYPE: XR chest 2V DATE OF EXAM: 12/11/2024 4:33 PM COMPARISON: Chest radiographs from 12/03/2024. CLINICAL INDICATION: Male, 84 years old with history of I31.3, R06.02 SHORTNESS OF BREATH; H TECHNIQUE: XR chest 2V Frontal and lateral views of the chest. FINDINGS: Lungs/Pleura: No evidence of focal consolidation or pneumothorax. Blunting of the costophrenic angles is present. Pulmonary vascularity: Pulmonary vascular congestion. Heart/mediastinum: Cardiomediastinal silhouette is enlarged. Two lead cardiac conduction device overl faiza the left hemithorax with lead tips projecting over the right ventricle and right atrium. Musculoskeletal: No acute osseous pathology. IMPRESSION: Cardiomegaly, pulmonary vascular congestion and bilateral pleural effusions. Correlate with BNP for c ongestive heart failure. [facility] Bridget Garcia, , 12/11/2024 6:57 PM
== END | disposition home or self-care (01) ==
LOC: RADXRMAIN 16:20
PROVIDERS: ATTEND Nurse Practitioner Acute Care
DX: I31.39 Other pericardial effusion (noninflammatory) (principal); I51.7 Cardiomegaly; J90 Pleural effusion, not elsewhere classified
CPT/HCPCS: 71046